=== PATIENT | female | born 1935 | race Caucasian/White ===

== ENCOUNTER 2017-09-05 13:51 | Outpatient (CLI) | payer MEDICARE ==
--- NOTE | 2017-09-05 17:08 | HP ---
DATE OF SERVICE: 09/05/2017 HISTORY OF PRESENT ILLNESS: Ms. Chikis Vanegas is a very pleasant 82-year-old accompanied by two of her daughters who presents to the [facility] for evaluation of an ulceration of the left medial lower leg. The patient states that she underwent venous ablation on the [place] [address] Rosendo neal. She states that at the end of 2016, she underwent a second ablation by Dr. Puente. The patien t's daughter states that the ulceration of the left medial lower leg has been treated with a silver o intment as well as Aquacel AG. The patient's daughter states that 3-4 days ago, a new lesion of the left anterior lower leg appeared. She states that the application of silver ointment to the lesion w orsened the appearance of the lesion. One of the patient's daughter states that the lesion may have developed as a result of shear stress from the application and removal of compression garments. One of the patient's daughter states that the lesion of the left anterior lower leg has been treated with the application of an antibiotic ointment followed by Jaron Douglas, and an Nic bandage. PAST MEDICAL HISTORY: 1. Hepatitis. 2. Hypertension. 3. Coronary artery disease. 4. Atrial fibrillation. 5. Osteoarthritis. 6. Osteoporosis. PAST SURGICAL HISTORY: 1. Left carpal tunnel release. 2. Right oophorectomy. 3. Appendectomy. 4. Cataract surgery of left eye. 5. Left total knee arthroplasty. 6. Left shoulder surgery. 7. Open reduction and internal fixation of left olecranon fracture. MEDICATIONS: 1. Atenolol. 2. Enalapril. 3. Xarelto. 4. Potassium chloride. 5. Lasix. 6. Evista. 7. Glucosamine. 8. Tylenol Arthritis. 9. Zoloft. 10. Sinemet. ALLERGIES: TETRACYCLINE. SOCIAL HISTORY: Negative for tobacco or ETOH use. FAMILY HISTORY: Significant for diabetes mellitus. The patient states that her mother was diagnosed with diabetes mellitus. PHYSICAL EXAMINATION: VITAL SIGNS: Temperature 97.7, pulse 90, respirations 18, blood pressure 108/65. GENERAL: An 82-year-old female sitting on chair in examination room in no acute distress. HEENT: Normocephalic, atraumatic. NECK: No nuchal rigidity. CHEST: Clear to auscultation. CARDIOVASCULAR: Irregular. ABDOMEN: Soft. EXTREMITIES: A fluctuant mass of the left anterior lower leg is present which measures approximately 2.0 x 2.5 cm. Aspiration of the lesion revealed purulent material within the fluctuant mass. A alena ple of the drainage was sent for aerobic and anaerobic cultures. A window was created in the fluctua nt mass to allow for complete drainage of the purulent material contained within the abscess. Erythe ma of the left anterior lower leg is present. No significant edema of the left foot or lower leg is present on exam today. NEUROLOGIC: Grossly nonfocal. ASSESSMENT AND PLAN: 1. Abscess of left anterior lower leg. The abscess was drained in clinic today. The lesion for whi ch the patient was referred to the Wound Center specifically, the ulceration of the left medial lower leg has healed completely. The wound of the left anterior lower leg subsequent to abscess drainage will be treated with dressing changes of Silvercel, 4 x 4s or Telfa, Kerlix, and an Nic bandage on a daily basis after cleansing and irrigation with the assistance of Home Health. The patient has been given a prescription for Bactrim DS #20 one p.o. b.i.d. x10 days. Antibiotic therapy will be modifie d based upon the results of the cultures obtained today. The patient is currently undergoing workup by Dr. Puente for arterial insufficiency. The patient may also undergo another venous ablation. I will see Ms. Vanegas again as needed after evaluation and treatment by Cardiology. The patient will contact the Wound Center should the wound of the left anterior lower leg failed to heal completely. The patient and her daughters understand and are in agreement with the preceding treatment plan. 2. Hepatitis. 3. Hypertension. 4. Coronary artery disease. 5. Atrial fibrillation. 6. Osteoarthritis. 7. Osteoporosis.
== END 2017-09-05 13:52 | disposition home or self-care (01) ==
LOC: WCC 13:51
PROVIDERS: ATTEND Family Medicine
DX: L02.416 Cutaneous abscess of left lower limb (principal); L97.829 Non-pressure chronic ulcer of other part of left lower leg with unspecified severity; K75.9 Inflammatory liver disease, unspecified; I10 Essential (primary) hypertension; I25.10 Atherosclerotic heart disease of native coronary artery without angina pectoris; I48.91 Unspecified atrial fibrillation; M19.90 Unspecified osteoarthritis, unspecified site; M81.0 Age-related osteoporosis without current pathological fracture
CPT/HCPCS: 87070; 87077; 87186; 87205

== ENCOUNTER 2017-09-30 11:37 | Outpatient (CLI) | payer MEDICARE ==
--- NOTE | 2017-09-30 21:12 | PRG ---
DATE OF SERVICE: 09/30/2017 HISTORY: Ms. Chikis Vanegas is a very pleasant 82-year-old accompanied by one of her daughters, james pfeiffer presents to the Wound Center for evaluation of an ulceration of the left anterior lower leg subseq uent to incision and drainage of an abscess of the left anterior lower leg at the time of the patient 's initial presentation to the Wound Center on 09/05/2017. For the ulceration of the left anterior l ower leg, the patient was placed on dressing changes of Silvercel, 4 x 4s or Telfa, Kerlix, and an Ac e bandage on a daily basis after cleansing and irrigation with the assistance of [facility] followin g incision and drainage of the left anterior lower leg abscess. The patient states she has been rece iving these dressing changes as prescribed. The patient's daughter states that she is concerned in r egard to the appearance of the wound, specifically the possibility of an infectious process associate d with the wound. The patient denies any fever or chills. PHYSICAL EXAMINATION: VITAL SIGNS: Temperature 97.6, pulse 91, blood pressure 137/91. EXTREMITIES: An ulceration of the left anterior lower leg is present, which measures approximately 2 .1 x 1.1 cm. The wound is granulating. Necrotic and nonviable tissue present within the wound elio ns was debrided with an excisional full-thickness debridement with the use of a curette. No purulent drainage is associated with the wound. No erythema of the skin surrounding the wound is present. N o maceration of the skin of the periwound is noted. No significant edema of the left foot or lower l eg is present on exam today. ASSESSMENT AND PLAN: 1. Ulceration of left anterior lower leg. Dressing changes of Silvercel, 4 x 4s, Kerlix, and an Nic bandage will be continued on a daily basis after cleansing and irrigation with the assistance of [facility] [employer]. The patient and her daughter have been reassured that no infectious process is associated with the left anterior lower leg ulceration. I will see Ms. Vanegas again in two weeks. 2. Hepatitis. 3. Hypertension. 4. Coronary artery disease. 5. Atrial fibrillation. 6. Osteoarthritis. 7. Osteoporosis.
== END 2017-09-30 11:38 | disposition home or self-care (01) ==
LOC: WCC 11:37
PROVIDERS: ATTEND Family Medicine
DX: L97.229 Non-pressure chronic ulcer of left calf with unspecified severity (principal); I10 Essential (primary) hypertension; I25.10 Atherosclerotic heart disease of native coronary artery without angina pectoris; B19.9 Unspecified viral hepatitis without hepatic coma; M19.90 Unspecified osteoarthritis, unspecified site; M81.0 Age-related osteoporosis without current pathological fracture; I48.91 Unspecified atrial fibrillation
CPT/HCPCS: 11042

== ENCOUNTER 2017-12-04 13:48 | Outpatient (CLI) | payer MEDICARE ==
--- NOTE | 2017-12-04 16:51 | PRG ---
DATE OF SERVICE: 12/04/2017 HISTORY: Ms. Chikis Vanegas is a very pleasant 82-year-old accompanied by one of her daughters wh o presents to the Wound Center for evaluation of an ulceration of the left medial lower leg. For the ulceration the patient is receiving dressing changes of Silvercel, 4 x 4s, Kerlix, and an Nic bandag e with the assistance of Home Health. The patient states that she is to undergo another venous ablat ion by Dr. Puente. The patient has no other complaints today. She denies any fever or chills. PHYSICAL EXAMINATION: VITAL SIGNS: Temperature 97.5, pulse 92, respirations 22, blood pressure 130/68. EXTREMITIES: An ulceration of the left medial lower leg is present which measures approximately 1.0 x 1.0 cm. Granulation tissue is present within the wound margins. No purulent drainage is associate d with the wound. No erythema of the skin surrounding the wound is present. No maceration of the sk in of the periwound is noted. No significant edema of the left foot or lower leg is present on exam today. ASSESSMENT AND PLAN: 1. Varicose veins with ulcer. Dressing changes of Silvercel, 4 x 4s, Kerlix, and an Nic bandage keisha l be continued on a daily basis after cleansing and irrigation with the assistance of Home Health. T he patient has been told that she may use Elta as a moisturizing agent. She has also been given a pr escription for Synalar ointment 0.025% to be applied up to b.i.d. for stasis dermatitis. I will see Ms. Vanegas again as needed after she undergoes venous ablation by Dr. Puente. 2. Hepatitis. 3. Hypertension. 4. Coronary artery disease. 5. Atrial fibrillation. 6. Osteoarthritis. 7. Osteoporosis.
== END 2017-12-04 13:49 | disposition home or self-care (01) ==
LOC: WCC 13:48
PROVIDERS: ATTEND Family Medicine
DX: I83.028 Varicose veins of left lower extremity with ulcer other part of lower leg (principal); I10 Essential (primary) hypertension; I25.10 Atherosclerotic heart disease of native coronary artery without angina pectoris; M81.0 Age-related osteoporosis without current pathological fracture; M19.90 Unspecified osteoarthritis, unspecified site; I48.91 Unspecified atrial fibrillation; K75.9 Inflammatory liver disease, unspecified
CPT/HCPCS: 97602

== ENCOUNTER 2018-02-05 11:08 | Outpatient (CLI) | payer MEDICARE ==
--- NOTE | 2018-02-05 12:33 | PRG ---
DATE OF SERVICE: 02/05/2018 HISTORY: Ms. Chikis Vanegas is a very pleasant 82-year-old accompanied by one of her daughters, wh o presents to the Wound Center for evaluation of an ulceration of the left medial lower leg. For the ulceration, the patient is receiving dressing changes with the assistance of Home Health. The patie nt has previously undergone venous ablation on the left by Dr. Puente. The patient has no other c omplaints today. She denies any fever or chills. PHYSICAL EXAMINATION: VITAL SIGNS: Temperature 98.7, pulse 65, respirations 18, and blood pressure 127/57. EXTREMITIES: An ulceration of the left medial lower leg is present, which measures approximately 0.6 x 0.8 cm. Granulation tissue is present within the wound margins. Serous drainage is associated wi th the wound. No purulent drainage is associated with the wound. No cellulitis of the left lower ex tremity is appreciated. No maceration of the skin of the periwound is noted. A posterior tibial pul se is palpable on the left. No significant edema of the left foot or lower leg is appreciated on exa m today. ASSESSMENT AND PLAN: 1. Varicose veins with ulcer. Dressing changes of Xeroform gauze and Mepilex border will be initiat ed today. These dressing changes are to be performed 3 times per week after cleansing and irrigation with the assistance of Home Health. The patient has also been given another prescription for Synala r ointment 0.025% to be applied up to b.i.d. for stasis dermatitis. The patient states she will cont act the Wound Center for her next appointment. 2. Hepatitis. 3. Hypertension. 4. Coronary artery disease. 5. Atrial fibrillation. 6. Osteoarthritis. 7. Osteoporosis.
[2018-02-05] MEDS ORDERED: Sodium Chloride 0.9% 15 ML NEB ONE (14:30)
== END 2018-02-05 11:09 | disposition home or self-care (01) ==
LOC: WCC 11:08
PROVIDERS: ATTEND Family Medicine
DX: I83.028 Varicose veins of left lower extremity with ulcer other part of lower leg (principal); I10 Essential (primary) hypertension; I25.10 Atherosclerotic heart disease of native coronary artery without angina pectoris; I48.91 Unspecified atrial fibrillation; M19.90 Unspecified osteoarthritis, unspecified site; M81.0 Age-related osteoporosis without current pathological fracture; K75.9 Inflammatory liver disease, unspecified
CPT/HCPCS: A4218

== ENCOUNTER 2018-03-13 09:53 | Outpatient (CLI) | payer MEDICARE ==
--- NOTE | 2018-03-13 10:57 | PRG ---
DATE OF SERVICE: 03/13/2018 HISTORY: Ms. Chikis Vanegas is a very pleasant 83-year-old accompanied by one of her daughters who p resents to the Wound Center for evaluation of an ulceration of the left lateral heel. For the ulcera tion, the patient is presently receiving dressing changes with the assistance of Home Health. The pa tient has previously undergone venous ablation on the left by Dr. Puente. Ms. Vanegas has no other complaints today. She denies any fever or chills. PHYSICAL EXAMINATION: VITAL SIGNS: Temperature 97.8, pulse 71, respirations 20, blood pressure 128/83. EXTREMITIES: An ulceration of the left lateral heel is present which measures approximately 0.4 x 0. 4 cm. Granulation tissue is present within the wound margins. Serous drainage is associated with wo und. No purulent drainage is associated with the wound. No cellulitis of the left lower extremity i s appreciated. No maceration of the skin of the periwound is noted. A dorsalis pedis pulse or poste rior tibial pulse is not palpable on the left on today's exam. No significant edema of the left foot or lower leg is appreciated on today's exam. ASSESSMENT AND PLAN: 1. Varicose veins with ulcer. Dressing changes of Xeroform gauze, Webril, and 3M Coban 2-layer comp ression system will be initiated today. The 3M Coban 2-layer compression system will be applied with out tension. Orders will be transmitted to Home Health for dressing changes of Xeroform gauze, Webri l, and 3M Coban 2 layer compression system without tension 3 times per week after cleansing and irrig ation. The patient will contact the Wound Center for her next appointment. 2. Hepatitis. 3. Hypertension. 4. Coronary artery disease. 5. Atrial fibrillation. 6. Osteoarthritis. 7. Osteoporosis.
== END 2018-03-13 09:54 | disposition home or self-care (01) ==
LOC: WCC 09:53
PROVIDERS: ATTEND Family Medicine
DX: I83.024 Varicose veins of left lower extremity with ulcer of heel and midfoot (principal); L97.429 Non-pressure chronic ulcer of left heel and midfoot with unspecified severity; I10 Essential (primary) hypertension; I25.10 Atherosclerotic heart disease of native coronary artery without angina pectoris; I48.91 Unspecified atrial fibrillation; M19.90 Unspecified osteoarthritis, unspecified site; M81.0 Age-related osteoporosis without current pathological fracture; K75.9 Inflammatory liver disease, unspecified
CPT/HCPCS: 29581

== ENCOUNTER 2018-06-19 08:38 | Outpatient (CLI) | payer MEDICARE ==
--- NOTE | 2018-06-19 16:02 | NM ---
NUCLEAR MEDICINE BRAIN IMAGING: Date; 06/19/18 HISTORY: Unspecified abnormal involuntary movements. TECHNIQUE: A DaTscan with axial tomographic images of the brain obtained 3 hours following the intravenous admin istration of 4.5 mCi Iodine-123 Ioflupane. 113 mg of potassium iodide were administered orally 1 hour prior to the injection. FINDINGS: There is loss of symmetric uptake in the striata bilaterally with asymmetrically decreased uptake in the left compared to the right. IMPRESSION: Parkinsonian syndrome. POS: Emma
== END 2018-06-19 08:39 | disposition home or self-care (01) ==
LOC: NM 08:38
PROVIDERS: ATTEND Psychiatry & Neurology Neurology
DX: G24.8 Other dystonia (principal); R25.9 Unspecified abnormal involuntary movements; G20 Parkinson's disease
CPT/HCPCS: 78607; A9584

== ENCOUNTER 2018-08-06 13:14 | Outpatient (CLI) | payer MEDICARE ==
[~2018-08-06 13:14] MED LIST: Sodium Chloride 0.9% 15 ML NEB ONE
--- NOTE | 2018-08-06 14:14 | PRG ---
DATE OF SERVICE: 08/06/2018 HISTORY: Ms. Chikis Vanegas is a very pleasant 83-year-old, accompanied by one of her daughters, who presents to the Wound Center for evaluation of an ulceration of the right medial lower leg in the region of the malleolus. The patient has previously undergone venous ablation on the left by Dr. Puente. The patient and her daughter state that Ms. Vanegas is to undergo venous ablation on the right in the near future. The patient has no other complaints today. She denies any fever or chills. PHYSICAL EXAMINATION: VITAL SIGNS: Temperature 97.5, pulse 108, and blood pressure 141/71. EXTREMITIES: An ulceration of the right lower leg in the region of the medial malleolus is present, which measures approximately 1.3 x 1.4 cm. Granulation tissue is visible within the wound margins. No purulent drainage is associated with the wound. No cellulitis of the right lower extremity is appreciated. No maceration of the skin of the periwound is noted. No significant edema of the right foot or lower leg is appreciated on exam today. ASSESSMENT AND PLAN: 1. Varicose veins with ulcer. Dressing changes of Xeroform gauze, Kerlix, and an Nic bandage will be initiated today. These dressing changes are to be performed 3 times per week after cleansing and irrigation with the assistance of Home Health. As stated above, the patient is to undergo venous ablation on the right by Dr. Puente in the near future. The patient states she will contact the Wound Center in order to schedule her next appointment. 2. Hepatitis. 3. Hypertension. 4. Coronary artery disease. 5. Atrial fibrillation. 6. Osteoarthritis. 7. Osteoporosis. Job ID: [id number]
== END 2018-08-06 13:15 | disposition home or self-care (01) ==
LOC: WCC 13:14
PROVIDERS: ATTEND Family Medicine
DX: I83.018 Varicose veins of right lower extremity with ulcer other part of lower leg (principal); I10 Essential (primary) hypertension; I25.10 Atherosclerotic heart disease of native coronary artery without angina pectoris; I48.91 Unspecified atrial fibrillation; M19.90 Unspecified osteoarthritis, unspecified site; M81.0 Age-related osteoporosis without current pathological fracture; K75.9 Inflammatory liver disease, unspecified
CPT/HCPCS: 97602; A4218

== ENCOUNTER 2018-10-09 13:44 | Outpatient (CLI) | payer MEDICARE ==
[~2018-10-09 13:44] MED LIST changes: +Lidocaine 2% 11 ML SYR ONE
--- NOTE | 2018-10-09 15:41 | PRG ---
DATE OF SERVICE: 10/09/2018 SUBJECTIVE: Ms. Chikis Vanegas is a very pleasant 83-year-old, accompanied by one of her daughters, who presents to the Wound Center for evaluation of an ulceration of the right medial lower leg in the region of the malleolus. The patient has previously undergone venous ablation on the left by Dr. Puente. The patient and her daughter state that Ms. Vanegas is scheduled to undergo venous ablation on the right in October of this year. Today, Ms. Vanegas complains of significant green drainage from her right medial lower leg ulceration. The patient continues to receive assistance with dressing changes by Home Health. Presently, the patient is receiving dressing changes of Medihoney. OBJECTIVE: VITAL SIGNS: Temperature 97.5, pulse 82, respirations 17, blood pressure 129/87. EXTREMITIES: An ulceration of the right lower leg in the region of the medial malleolus is present, which measures approximately 3.5 x 4.0 cm. Granulation tissue is visible within the wound margins. No purulent drainage is associated with the wound. No cellulitis of the right lower extremity is appreciated. No maceration of the skin of the periwound is noted. No significant edema of the right foot or lower leg is appreciated on exam today. ASSESSMENT AND PLAN: 1. Varicose veins with ulcer. Dressing changes of Medihoney will be continued 3 times per week after cleansing and irrigation with the assistance of Home Health. Medihoney foam, Kerlix, and an Nic bandage were applied to the ulceration today. As stated above, the patient is scheduled to undergo venous ablation on the right by Dr. Puente in October of this year in view of the copious green drainage associated with the right medial lower leg ulceration. The patient has been given a prescription for ciprofloxacin 500 mg #20 one p.o. b.i.d. x10 days. 2. Hepatitis. 3. Hypertension. 4. Coronary artery disease. 5. Atrial fibrillation. 6. Osteoarthritis. 7. Osteoporosis. Job ID: [id number]
== END 2018-10-09 13:45 | disposition home or self-care (01) ==
LOC: WCC 13:44
PROVIDERS: ATTEND Family Medicine
DX: I83.018 Varicose veins of right lower extremity with ulcer other part of lower leg (principal); L97.919 Non-pressure chronic ulcer of unspecified part of right lower leg with unspecified severity; K75.9 Inflammatory liver disease, unspecified; I10 Essential (primary) hypertension; I25.10 Atherosclerotic heart disease of native coronary artery without angina pectoris; I48.91 Unspecified atrial fibrillation; M19.90 Unspecified osteoarthritis, unspecified site; M81.0 Age-related osteoporosis without current pathological fracture
CPT/HCPCS: 97602; A4218

== ENCOUNTER 2018-11-05 11:29 | Outpatient (CLI) | payer MEDICARE ==
--- NOTE | 2018-11-05 11:41 | PRG ---
DATE OF SERVICE: 11/05/2018 HISTORY: Ms. Chikis Vanegas is a very pleasant 83-year-old, accompanied by one of her daughters, who presents to the wound center for evaluation of an ulceration of the right medial lower leg in the region of the malleolus. The patient recently underwent venous ablation on the right by Dr. Puente. The patient is utilizing compression as per Dr. Puente. The patient's daughter states that Ms. Vanegas has most recently been receiving dressing changes of Telfa, followed by an ABD and Kerlix in conjunction with compression. She states that Medihoney was discontinued because of significant maceration of the skin of the periwound. The patient's daughter states that the wound has improved in its appearance since Medihoney was discontinued. PHYSICAL EXAMINATION: VITAL SIGNS: Temperature 97.6, pulse 90, respirations 20, and blood pressure 120/90. EXTREMITIES: An ulceration of the right lower leg in the region of the medial malleolus is present, which measures approximately 2.8 x 3.3 cm. The dimensions of the wound at the time of the patient's last visit were approximately 3.5 x 4.0 cm. Granulation tissue is visible within the wound margins. No purulent drainage is associated with the wound. No cellulitis of the right lower extremity is appreciated. No maceration of the skin of the periwound is noted. No significant edema of the right foot or lower leg is appreciated on exam today. ASSESSMENT AND PLAN: 1. Varicose veins with ulcer. Dressing changes of Telfa, followed by an ABD and Kerlix will be continued. The patient is to continue to utilize compression as per Dr. Puente in conjunction with the preceding dressing changes. The patient's daughter states that Ms. Vanegas will contact the clinic in order to schedule her next followup appointment. 2. Hepatitis. 3. Hypertension. 4. Coronary artery disease. 5. Atrial fibrillation. 6. Osteoarthritis. 7. Osteoporosis. Job ID: [id number]
== END 2018-11-05 11:30 | disposition home or self-care (01) ==
LOC: WCC 11:29
PROVIDERS: ATTEND Family Medicine
DX: I83.018 Varicose veins of right lower extremity with ulcer other part of lower leg (principal); I10 Essential (primary) hypertension; I25.10 Atherosclerotic heart disease of native coronary artery without angina pectoris; I48.91 Unspecified atrial fibrillation; K75.9 Inflammatory liver disease, unspecified; M81.0 Age-related osteoporosis without current pathological fracture; M19.90 Unspecified osteoarthritis, unspecified site
CPT/HCPCS: 97602; A4218

== ENCOUNTER 2019-06-10 16:21 | Inpatient (IN) | payer MEDICARE ==
[~2019-06-10 16:21] MED LIST changes: +Dexamethasone 20 MG/5 ML VIAL ONE; +Glycopyrrolate 0.2 MG/ML 5 ML SYRINGE ONE; +Iopamidol 370 76% 100 ML VIAL ONE; -Lidocaine 2% 11 ML SYR ONE; +Ondansetron PF 4 MG/2 ML Vial ONE; +PROPOFOL 200 MG/20 ML VIAL ONE; +Rocuronium Bromide 10 MG/ML (10ML VIAL) ONE; -Sodium Chloride 0.9% 15 ML NEB ONE; +diphenhydrAMINE 50 MG/ML VIAL ONE
[2019-06-10] MEDS ORDERED: Heparin (Artline) 1,500 ML ONE (16:26)
[2019-06-10] MEDS ORDERED: Heparin 10,000 UNITS/1 ML VIAL ONE ×2 (16:27→18:31)
[2019-06-10] MEDS ORDERED: Fentanyl 100 MCG/2 ML VIAL ONE (16:48)
[2019-06-10] MEDS ORDERED: Midazolam HCl 2 mg/2 ml Vial ONE (16:48)
--- NOTE | 2019-06-10 18:03 | PRG ---
DATE OF SERVICE: 06/10/2019 Ms. Vanegas is an 84-year-old female, who was an inpatient at the [place] location, where she was about to undergo a procedure, where she was noted to have abrupt facial droop, aphasia, and altered level of consciousness. She underwent a stroke workup at that time, which was a CT scan, which showed no evidence for hemorrhage. A CT angiogram performed thereafter revealed the presence of a left distal M1 clot in the middle cerebral artery on the left side. Shortly thereafter, I was contacted by one of the hospitalists and we made arrangements to transfer to [facility] for further evaluation and treatment. I just met with the patient's daughters and reviewed again with them her diagnosis, the imaging and the planned procedure moving forward, which is a cerebral angiography and potentially mechanical thrombectomy. I did review with them the risks, benefits, and alternatives, and they have provided their informed consent. Job ID: [id number]
[2019-06-10] MEDS ORDERED: niCARdipine 25 MG in Sodium Chloride 0.9% 250 ML 240 ML IVPB PRN (19:27)
[2019-06-10] MEDS ORDERED: Labetalol HCl 100 MG/20 ML VIAL SLOW IVP PRN (19:27)
[2019-06-10] MEDS ORDERED: Labetalol HCl 100 MG/20 ML VIAL ONE (19:57)
--- NOTE | 2019-06-10 20:04 | PDOC.HHP ---
Hospitalist HPI - History of Present Illness CVA History of Present Illness: HOSPITALIST CONSULTATION NOTE CONSULTING PROVIDER: Dr Bronson Paris REASON FOR CONSULTATION: HTN, CAD, atrial fibrillation, comanagement CHIEF COMPLAINT: Facial droop, aphasia HPI Patient is an 84 year old female with PMH hepatitis, HTN, CAD, atrial fibrillation, osteoarthritis, osteoporosis who was transferred here after acute stroke in M1 segment of MCA this AM. Patient already admitted at [facility] since 06/08 and about to go for procedure today when she developed abrupt facial droop, aphasia, change in LOC, CT scan negative for hemorrhage but CT angiography revealed M1 clot prompting the transfer. Patient was taken to operating room by Dr Paris who attempted cerebral angiography/ mechanical thrombectomy which was not successful. Patient returned to [facility] for further care. IM consulted for HTN, afib, comanagement. Records reviewed, patient was admitted to [facility] on 06/08/19 for infected R pretibial wound. She has been seeing wound care clinic and orthopedics had been consulted and was planning to do I&D this admission. Patient was on vancomycin and cefepime. MRI was performed there, notes state that there was no radiologic osteomyelitis found on that study. Dr Vaca was consulted there as well as Dr Metz of orthopedics. Neurologist: Dr Vanegas Consulting Analyst: Dr Huff Hospitalist ROS - Review of Systems ROS unobtainable: due to mental status Hospitalist History - Past Medical History Other Medical History: hepatitis HTN CAD atrial fibrillation osteoarthritis osteoporosis - Past Surgical History Other Surgical History: L carpal tunnel release R oophorectomy appendectomy cataract surgery L eye L TKA L shoulder surgery ORIF L olecranon - Family History Family History: reports: no pertinent history - Social History Smoking Status: Never smoker Alcohol: reports: None - Exam General Appearance: ill appearing General - other findings: shivering, opens eyes to command, otherwise not interactive, altered mental Eye: anicteric sclera Eye - other findings: opens L eye pupil reactive ENT: normocephalic atraumatic, moist mucosa ENT - other findings: facial droop Neck: supple, no JVD Heart: RRR, no murmur, no gallops, no rubs Respiratory: CTAB, no wheezes, no rales, no ronchi Gastrointestinal: soft, non-tender, non-distended, normal bowel sounds Extremities: no cyanosis, no clubbing, no edema Skin - other findings: R ankle tunneling wound with surrounding erythema and edema Neurological - other findings: AMS, R chronic contracture, R facial droop, not responding to commands Musculoskeletal: generalized weakness, diffuse muscle atrophy Psychiatric - other findings: unable to evaluate Hospitalist Results - Labs Additional comment: 100+ pages outside recs reviewed Hospitalist H&P A/P - Plan Plan: Patient is an 84 year old female with PMH hepatitis, HTN, CAD, atrial fibrillation, osteoarthritis, osteoporosiswho was transferred here after acute stroke in M1 segment of MCA # acute CVA - status post attempted angiography/mechanical thrombectomy 2019 - stroke order set was ordered by neurosurgery, including rehab evaluation - hold xarelto for the moment with risk of hemorrhagic conversion, patient started back on ASA by NSG - will get echo - consult Dr Huff, Madhuri, Nola Mcdermott - Dr Chavez is normal neurologist with [facility] [employer], family requests discussion between neurology teams if able - unfortunately must hold PO meds due to AMS and aspiration risk, speech to eval , resume meds when able, has PICC so TPN consult placed, keep on IVF, monitor for recovery # acute encephalopathy - patient with significant neurologic impairment currently, though some of this may be encephalopathy due to infection or residual anesthesia from procedure, turns head to verbal commands but closes eyes and is shivering and otherwise too encephalopathic to cooperate with exam # infected R ankle wound with cellulitis - continue vancomycin and cefepime, consult orthopedics for debridement evaluation, order new blood and wound cultures, will consult wound care service for pretibial wound management # abnormal doppler lower extremity - can consider for vascular intervention, Dr Huff consutled # history of hepatitis # HTN - recently started on lisinopril and spironolactone # CAD # atrial fibrillation - followed by Dr Huff, on xarelto chronically # osteoarthritis # osteoporosis # neurologic disorder Parkinsons spectrum - has gotten botox for this in past Code: continue previous DNR status Disposition based on clinical recovery
[2019-06-10] MEDS ORDERED: Promethazine HCl 12.5 MG in Sodium Chloride 0.9% 50 ML IVPB PRN (20:36)
[2019-06-10] MEDS ORDERED: Ondansetron PF 4 MG/2 ML Vial IVP PRN (20:36)
[2019-06-10] MEDS ORDERED: Vancomycin HCl 1 GM in Sodium Chloride 0.9% 250 ML 300 ML IVPB SCH (20:45)
[2019-06-10] MEDS: Dextrose 5 %-0.45 % NaCl 1,000 ML IV SCH (21:24)
[2019-06-10 21:29] LABS: #Eosinphils 0.1 thou/uL (0.0-0.7); #Lymphocytes 0.5 thou/uL (1.20-3.40); #Monocytes 0.2 thou/uL (0.11-0.59); #Neutrophils 16.5 thou/uL (1.40-6.50); %Eosinophils 0.4 % (0.0-10.0); %Lymphocytes 2.8 % (21.0-51.0); %Monocytes 1.2 % (0.0-10.0); %Neutrophils 95.6 % (42.0-75.0); Hemoglobin 13.1 g/dL (12.0-16.0); Mean Corpuscular Hemoglobin 31.6 pg (27.0-31.0); Mean Corpuscular Volume 98.8 fL (78.0-98.0); Mean Platelet Volume 7.4 fL (7.4-10.4); Platelet Count 454 thou/uL (130-400); RBC Distribution Width 13.3 % (11.5-14.5); Red Blood Cell (RBC) Count 4.13 mill/uL (4.20-5.40); White Blood Cell (WBC) Count 17.2 thou/uL (4.8-10.8)
[2019-06-10 21:53] LABS: Anion Gap 16 mmol/L (10-20); BUN (Urea Nitrogen) 12 mg/dL (9.8-20.1); Calc. Creatinine Clearance 0 mL/min (70-130); Calcium 7.7 mg/dL (7.8-10.44); Carbon Dioxide 20 mmol/L (23-31); Chloride 107 mmol/L (98-107); Estimated GFR-MDRD 76; Glucose 155 mg/dL (83-110); Potassium 5.5 mmol/L (3.5-5.1); Sodium 137 mmol/L (136-145)
[2019-06-10 22:46] VITALS: BMI 17.6
[2019-06-10] MEDS ORDERED: Vancomycin HCl 1 GM in Premix Bag 1 BAG IVPB SCH (23:59)
[2019-06-11 03:52] LABS: #Lymphocytes 0.4 thou/uL (1.20-3.40); #Monocytes 0.2 thou/uL (0.11-0.59); #Neutrophils 11.3 thou/uL (1.40-6.50); %Eosinophils 0.3 % (0.0-10.0); %Monocytes 1.5 % (0.0-10.0); %Neutrophils 95.1 % (42.0-75.0); Hemoglobin 12.1 g/dL (12.0-16.0); Mean Corpuscular HGB CONC 30.8 g/dL (32.0-36.0); Mean Corpuscular Hemoglobin 30.2 pg (27.0-31.0); Mean Corpuscular Volume 97.9 fL (78.0-98.0); Mean Platelet Volume 7.6 fL (7.4-10.4); Platelet Count 442 thou/uL (130-400); RBC Distribution Width 13.4 % (11.5-14.5); White Blood Cell (WBC) Count 11.9 thou/uL (4.8-10.8)
[2019-06-11 04:19] LABS: Anion Gap 16 mmol/L (10-20); BUN (Urea Nitrogen) 13 mg/dL (9.8-20.1); Calc. Creatinine Clearance 48 mL/min (70-130); Calcium 7.9 mg/dL (7.8-10.44); Carbon Dioxide 18 mmol/L (23-31); Cardiac Risk 3.5 (Less than 4.5); Chloride 106 mmol/L (98-107); Cholesterol 138 mg/dl (< 200 Desired); Estimated GFR-MDRD 75; Glucose 232 mg/dL (83-110); HDL Cholesterol 39 mg/dL (>60 Neg Risk); LDL Cholesterol, Calculated 85 mg/dL; Potassium 4.8 mmol/L (3.5-5.1); Sodium 135 mmol/L (136-145); Triglycerides 70 mg/dL (Less than 150)
--- NOTE | 2019-06-11 08:24 | CT ---
PRELIMINARY REPORT/[facility]/EMERGENCY AFTER HOURS PROCEDURE: This report was discussed with Guadalupe Knutson by Aster Silver on Jun 11, 2019 05:07:00 GRINDER OPERATOR EXTERNAL TOOL. Addendum electronically signed by Aster Silver on June 11, 2019 5:22:25 AM GRINDER OPERATOR EXTERNAL TOOL Receipt of this report by the clinical staff was confirmed with Tessie Barker by Cherrie Naik on Jun 11, 2019 05:07:00 GRINDER OPERATOR EXTERNAL TOOL. Addendum electronically signed by Leonela Naik on June 11, 2019 5:08:13 AM GRINDER OPERATOR EXTERNAL TOOL Exam: Unenhanced CT brain. History: AMS; CONFUSION; CVA . Comparison: None. Findings: There is no intracranial hemorrhage. Large acute left MCA distribution infarct is present. Patient demonstrates Baseline of cerebral atrophy and small vessel ischemic disease. Ventricles a re normal size. Impression: Acute large left MCA distribution infarct. ELECTRONICALLY SIGNED BY: Shiloh Meadows MD Jun 11, 2019 4:56:55 AM GRINDER OPERATOR EXTERNAL TOOL This report is intended for review by the ordering physician only, in accordance of law. If you recei ve this report in error, please call [facility] at [phone]. FINAL REPORT BRAIN CT WITHOUT IV CONTRAST EMERGENCY AFTER HOURS STUDY TIME: 3:28 AM. DATE: 06/11/2019. Large acute middle cerebral artery distribution infarct involving courses of the left frontal, tempor al, and parietal lobes with some diffuse edema and 0.2 cm of midline shift to the right. No acute he morrhage. This report is in agreement with the preliminary report. POS: OFF
--- NOTE | 2019-06-11 08:51 | CON ---
DATE OF CONSULTATION: 06/11/2019 REASON FOR CONSULTATION: The patient is in the CCU. HISTORY OF PRESENT ILLNESS: The patient is an 84-year-old, who was brought in yesterday with a stroke. Apparently, she was at the [facility] yesterday when she developed right facial droop, aphasia, and altered consciousness. She was found to have a clot in the middle cerebral artery on the left side. She was taken for a ALONDRA procedure, but the clot could not be retrieved. She has since had gross deterioration in her mental status overnight. She is not arousable for me this morning. PAST MEDICAL HISTORY: 1. Hepatitis. 2. Hypertension. 3. Chronic atrial fibrillation. 4. Coronary artery disease. 5. Osteoporosis. PAST SURGICAL HISTORY: 1. Left carpal tunnel release. 2. Right oophorectomy. 3. Appendectomy. 4. Cataract surgery. 5. Left total knee. 6. Left shoulder. 7. ORIF of left olecranon. SOCIAL HISTORY: Never smoker. Does not consume alcohol. FAMILY HISTORY: Unremarkable. REVIEW OF SYSTEMS: Cannot be obtained because of altered mental status. MEDICATIONS: Prior to admission: 1. Melatonin. 2. Tylenol. 3. Xarelto. 4. Potassium chloride. 5. Glucosamine. 6. Benadryl. 7. Aldactone. 8. Protonix. 9. Furosemide. 10. Evista. 11. Carbidopa/levodopa. 12. Atenolol. PHYSICAL EXAMINATION: VITAL SIGNS: Heart rate 96, O2 saturation 96%, respiratory rate 23, blood pressure 154/87. GENERAL: She is obtunded, cannot be aroused. HEENT: Pupils are 4 mm and reactive. Sclerae are anicteric. Oropharynx is dry. NECK: No JVD. LUNGS: Coarse breath sounds. CARDIAC: S1 and S2. Irregularly irregular. ABDOMEN: Soft. EXTREMITIES: She has stasis changes over her ankles bilaterally. LABORATORY DATA: White blood cell count 11.9, hematocrit 39.2, platelet count 442. Sodium 135, potassium 4.8, chloride 106, CO2 of 18, BUN 13, creatinine 0.7, glucose 232. ASSESSMENT: 1. Stroke with severe debilitation. 2. Other medical problems listed above. PLAN: The patient has been made DNR by family. There looks to be nothing to do other than palliate her symptoms. No further Pulmonary recommendations other than she needs to be transferred out to the floor. Job ID: [id number]
[2019-06-11] MEDS ORDERED: FLU VACC TS2019-20(65YR UP)/PF 180 MCG/0.5 ML SYRINGE IM ONE (09:00)
[2019-06-11] MEDS ORDERED: Prevnar 13-Val Conj/PF 0.5 ML SYRINGE IM ONE (09:00)
[2019-06-11] MEDS ORDERED: Atenolol 25 MG TAB PO SCH (09:15)
[2019-06-11] MEDS: Aspirin 325 mg Enteric Coated Tablet PO SCH (10:45)
[2019-06-11] MEDS: Acetaminophen ER (8hr) 650 MG TAB PO SCH (10:45)
[2019-06-11] MEDS: Carbidopa/Levodopa CR 50-200 mg Tablet PO SCH ×3 (10:45→20:35)
[2019-06-11] MEDS: Aspirin 300 MG Suppository PR SCH (14:33)
[2019-06-11] MEDS: Dextrose 5 %-0.45 % NaCl 1,000 ML IV SCH ×2 (14:38→23:21)
--- NOTE | 2019-06-11 16:01 | CCL ---
DATE OF SERVICE: 06/10/19 SURGEON: Bronson Paris M.D. ELECTRICAL ESTIMATOR: None. INDICATION: CVA. DIAGNOSIS: Left MCA occlusion. PROCEDURE: Mechanical thrombectomy. ANESTHESIA: General. TECHNIQUE: The patient is brought into the [facility] and placed under general anesthesia. Both groins were preppe d and draped in the usual sterile fashion. 1% lidocaine was used to inject the right groin. A 5 Frenc h micropuncture set was used to gain access to the right femoral artery. Using a Seldinger technique, it was up sized to an 8 Moroccan sheath. An 8 Moroccan concentric guide catheter was passed over a long diagnostic Crawford catheter which was passed over a Bentzen guide wire where the left internal chapman tid artery was selectively catheterized. We did have to use a Cherelle catheter to get initial entry in to the left internal carotid artery. An AP and lateral angiogram was then performed which showed and confirmed complete occlusion of the left middle cerebral artery. The patient's tortuosity intracrania lly made it very difficult to pass our micro catheters. I was able to get the mechanical thrombectomy device passed twice beyond the clot and retrieved without any congregational of flow. Went through [facility] guide wires and micro catheters in attempt to pass a third time but was unsuccessful. IMPRESSION: The patient underwent angiography and two passes of retrieval device for purposes of mechanical throm bectomy. Her intracranial tortuosity made navigation through her vasculature difficult and I was able to get a third pass completed. There was no congregational of flow.
--- NOTE | 2019-06-11 17:53 | CON ---
DATE OF CONSULTATION: 06/11/2019 CONSULTING PHYSICIAN: Hospitalist Service. IMPRESSION: 1. Complete left middle cerebral artery infarct, likely secondary to primary thrombus. 2. Atrial fibrillation. 3. Recent wound issues, that were undergoing treatment with antibiotics in anticipation of surgery. 4. Prior contracture of the right hand. PLAN: 1. CT scan of the brain tomorrow to assess the degree of cerebral edema. 2. Speech Therapy evaluation once the patient regains consciousness. 3. Determination of long-term issues such as feeding tube placement and other problems after the family makes decisions in this regard. HISTORY OF PRESENT ILLNESS: Ms. Vanegas is an 84-year-old woman, who came in to the hospital preoperatively to have a surgery. She was taken off her Xarelto 2 days ago. She developed an acute change of mental status with expressive aphasia. She had an urgent CTA done, which showed an M1 segment occlusion. Dr. Paris attempted to do the ALONDRA procedure, but was unsuccessful. Followup CT scan of the brain showed a large area of infarction involving the left middle cerebral artery territory. She has been very lethargic since then. She has failed to awaken and be responsive to 2 of her daughters and nurses. I spoke with one of them extensively as to potential outcomes. PAST MEDICAL HISTORY: Atrial fibrillation, contracture, and wound care issues. ALLERGIES: NONE REPORTED. SOCIAL HISTORY: No tobacco use. FAMILY HISTORY: Noncontributory. REVIEW OF SYSTEMS: Not obtainable secondary to her recurrent mental state. PHYSICAL EXAMINATION: GENERAL: She is a somewhat frail-appearing elderly lady, lying in bed, in no acute distress. VITAL SIGNS: Vital signs have been stable. She is afebrile. HEENT: Pupils are equal. Conjunctivae are clear. Eyes are deviated to the left. NECK: No lymphadenopathy. EXTREMITIES: No cyanosis or edema. NEUROLOGIC: She is deeply lethargic. She would not open her eyes to stimulation. She is making no verbal responses. There is flattening of the right nasolabial fold. The right arm appears contractured at the elbow as well as at the wrist. She has spontaneous movements in the right leg to stimulation as well as on the left. No other abnormal movements were seen. IMAGING STUDIES: EKG shows atrial fibrillation. LABORATORY DATA: Laboratory studies were reviewed. SUMMARY: This is an unfortunate elderly lady, who suffered a massive stroke. Prognosis for functional recovery is quite small. There is a potential for secondary herniation related to cerebral edema. Family is indecisive at this point as to what the long-term care needs they would like to pursue. At this point, she is DNR. Dr. Sanchez will be covering for me in my absence. Job ID: [id number]
[2019-06-11] MEDS: Pantoprazole 40 MG VIAL IVP SCH (20:41)
[2019-06-11] MEDS ORDERED: Acetaminophen 650 MG Suppository PR PRN (20:56)
--- NOTE | 2019-06-11 22:05 | PDOC.HOSPP ---
- Subjective Encounter Date: 06/11/19 Encounter Time: 19:00 non-verbal Subjective: Patient seen and examined for Acute CVA. Events noted - Objective Vital Signs & Weight: Vital Signs (12 hours) Temp Pulse Resp BP Pulse Ox 06/11/19 20:40 99.3 F 93 18 155/79 H 100 06/11/19 18:00 98 06/11/19 14:00 100.0 F H Weight Admit Weight 119 lb Weight 119 lb 11.376 oz Most Recent Monitor Data Heart Rate from ECG 87 NIBP 142/93 NIBP BP-Mean 109 Respiration from ECG 23 SpO2 98 I&O: 06/10/19 06/11/19 06/12/19 06:59 06:59 06:59 Intake Total 734 Output Total 715 490 Balance 19 -490 Result Diagrams: 06/11/19 03:00 06/11/19 03:30 Additional Labs: Accuchecks 06/11/19 06/11/19 06/11/19 13:30 04:03 00:19 POC Glucose 153 H 196 H 188 H Radiology Reviewed by me: Yes (CT brain - reviewed) EKG Reviewed by me: Yes (Tele Afib) Hospitalist ROS - Review of Systems ROS unobtainable: due to mental status - Medication Medications: Active Medications Generic Name Dose Route Start Last Admin Trade Name Aletha PRN Reason Stop Dose Admin Acetaminophen 650 mg 06/11/19 09:00 06/11/19 10:45 Tylenol Er (8hr Arthritis Pain) PO Not Given DAILY [facility]IGHT Aspirin 325 mg 06/11/19 09:00 06/11/19 10:45 Ecotrin PO Not Given DAILY DWIGHT Aspirin 300 mg 06/11/19 09:00 06/11/19 14:33 Aspirin FL 300 mg DAILY DWIGHT Administration Carbidopa/Levodopa 1.5 tab 06/11/19 09:00 06/11/19 20:35 Sinemet Cr 50/200 PO Not Given TID DWIGHT Dextrose/Sodium Chloride 1,000 mls @ 75 mls/hr 06/10/19 21:15 06/11/19 14:38 D5 1/2 Ns IV 1,000 mls .[id number] DWIGHT Administration Vancomycin HCl 1 gm/ Device 200 mls @ 200 mls/hr 06/10/19 23:59 06/11/19 01: 31 IVPB 200 mls 2359 DWIGHT Administration Pantoprazole Sodium 40 mg 06/11/19 21:00 06/11/19 20:41 Protonix IVP 40 mg HS DWIGHT Administration - Exam General Appearance: NAD Heart: no gallops, no rubs, normal peripheral pulses, irregular Respiratory: no wheezes, no rales, no ronchi, normal chest expansion Gastrointestinal: non-distended, normal bowel sounds, no palpable masses, no guarding, no rigidity Neurological - other findings: Neuro/Psych - Cannot assess due to current mentation Hosp A/P - Plan DVT proph w/SCDs Consults: Palliative Care Acute CVA Encephalopathy due to above Sepsis due to Rt LE infected ulceration with cellulitis (POA) Chronic Afib HTN CAD Hyperkalemia - resolved CKD 2 PLAN: Repeat CT brain in AM Cont ASA Cont supportive care Resume Betablockers Cont IV Vancomycin Add IV Ceftriaxone Echo - normal EF AM labs
[2019-06-11] MEDS: cefTRIAXone\\ROCEPHIN 1 GM in Sodium Chloride 0.9% 100 ML IVPB SCH (23:18)
[2019-06-11] MEDS ORDERED: Vancomycin HCl 500 MG in Sodium Chloride 0.9% 100 ML IVPB SCH (23:59)
--- NOTE | 2019-06-12 00:04 | CON ---
DATE OF CONSULTATION: 06/11/2019 REASON FOR CONSULTATION: Stroke in a patient with atrial fibrillation. HISTORY OF PRESENT ILLNESS: Romina is a delightful 84-year-old woman with a history of chronic atrial fibrillation, recently had orthopedic problems including cellulitis and was going to need some surgical therapy. She was at [facility]. The patient had to go off the Xarelto in order to go to the operating room for the procedure that was needed and she was being brought to the operating room. The patient had sudden loss of speech, right-sided weakness. She was found to have an extensive middle cerebral artery stroke. Dr. Paris did a procedure on her to try to retrieve some of the thrombus. The patient has not really recovered much function. PAST HISTORY: 1. Chronic atrial fibrillation. 2. Peripheral edema. 3. Diastolic heart failure. MEDICATIONS: At home, please see nurse's notes as mentioned. Xarelto apparently had to be stopped in order to go to the operating room. REVIEW OF SYSTEMS: Not obtainable. She is aphasic. PHYSICAL EXAMINATION: GENERAL: This is an 84-year-old woman. She is aphasic, unresponsive, not moving the right side. VITAL SIGNS: Blood pressure 142/93, pulse 100 and irregular. LUNGS: Clear. CARDIAC: Irregularly irregular with an apical systolic murmur. ABDOMEN: Soft and nontender. EXTREMITIES: Not moving the right side at all. PERTINENT LABORATORY DATA: Hemoglobin is 12, potassium is 4.8, creatinine is 0.74. ASSESSMENT: 1. Extensive embolic stroke involving middle cerebral artery. 2. Chronic atrial fibrillation. PLAN: 1. She is back on the Xarelto. 2. She is on medicine to control heart rate nothing else to do from a cardiac standpoint. Will be available if needed. Please reconsult if needed. Job ID: [id number]
[2019-06-12] MEDS ORDERED: Vancomycin HCl 1 GM in Premix Bag 1 BAG IVPB SCH (01:00)
[2019-06-12] MEDS: Vancomycin HCl 1 GM in Premix Bag 1 BAG IVPB SCH (01:21)
[2019-06-12 05:44] LABS: #Lymphocytes 0.8 thou/uL (1.20-3.40); #Monocytes 0.9 thou/uL (0.11-0.59); #Neutrophils 13.2 thou/uL (1.40-6.50); %Basophils 0.1 % (0.0-1.0); %Eosinophils 0.2 % (0.0-10.0); %Lymphocytes 5.1 % (21.0-51.0); %Monocytes 5.9 % (0.0-10.0); %Neutrophils 88.7 % (42.0-75.0); Hemoglobin 11.1 g/dL (12.0-16.0); Mean Corpuscular HGB CONC 32.8 g/dL (32.0-36.0); Mean Corpuscular Volume 97.5 fL (78.0-98.0); Mean Platelet Volume 6.4 fL (7.4-10.4); Platelet Count 412 thou/uL (130-400); RBC Distribution Width 13.2 % (11.5-14.5); Red Blood Cell (RBC) Count 3.47 mill/uL (4.20-5.40); White Blood Cell (WBC) Count 14.9 thou/uL (4.8-10.8)
[2019-06-12 06:19] LABS: Anion Gap 11 mmol/L (10-20); BUN (Urea Nitrogen) 10 mg/dL (9.8-20.1); Calc. Creatinine Clearance 58 mL/min (70-130); Carbon Dioxide 22 mmol/L (23-31); Chloride 102 mmol/L (98-107); Estimated GFR-MDRD Greater than 90; Glucose 138 mg/dL (83-110); Potassium 3.7 mmol/L (3.5-5.1); Sodium 131 mmol/L (136-145)
[2019-06-12 06:35] LABS: Magnesium 1.7 mg/dL (1.6-2.6)
[2019-06-12] MEDS ORDERED: Atenolol 50 MG TAB PO SCH (09:00)
[2019-06-12] MEDS ORDERED: LIDOCAINE HCL 4% Topical Sol (4 ML SOLN.PK.G.) TP SCH (09:00)
--- NOTE | 2019-06-12 09:19 | PRG ---
DATE OF SERVICE: 06/12/2019 Ms. Vanegas is now on the floor after having sustained a large left middle cerebral artery distribution infarct. She underwent angiography and mechanical thrombectomy without success. Her neurologic exam has continued to decline. The repeat CT examination after procedure did not reveal any evidence for hemorrhagic transformation. Unfortunately, her prognosis is quite poor. The Neurosurgical Service will sign off and I appreciate the assistance of our hospitalist colleagues. Job ID: [id number]
--- NOTE | 2019-06-12 09:35 | CT ---
Head CT without contrast 06/12/2019: COMPARISON: 06/11/2019 HISTORY: Evaluate cerebral edema associated with left-sided infarction TECHNIQUE: Axial CT imaging at 5 mm intervals from vertex through skull base without contrast FINDINGS: The imaged paranasal sinuses and mastoid air cells are well aerated. There is no displaced calvarial fracture. There is atherosclerotic calcification of the cavernous carotid arteries and the distal vertebral arteries. There is extensive cytotoxic edema within the left cerebral hemisphere involving left MCA territory. The degree of cytotoxic edema and associated loss of patel-white differentiation, as well as associated crowding of cortical sulci, has worsened significantly since the 06/11/2019 exam. There has been interval worsening of effacement of the body of the left lateral ventricle and there is new left to right midline shift measuring approximately 5 mm. No intracranial hemorrhage. Developing hypodensity within the basal ganglia on the left is noted, evidence of developing left bas al ganglia infarction. IMPRESSION: Extensive cytotoxic edema within the MCA territory on the left consistent with acute infa rction. The degree of cytotoxic edema and associated mass effect has worsened with new left or right midline shift and worsening effacement of left lateral ventricle.
[2019-06-12] MEDS ORDERED: D5 0.9% NS w/ 20 mEq KCl 1,000 ML IV SCH (10:15)
[2019-06-12] MEDS: Acetaminophen ER (8hr) 650 MG TAB PO SCH (10:41)
[2019-06-12] MEDS: Aspirin 325 mg Enteric Coated Tablet PO SCH (10:41)
[2019-06-12] MEDS: Carbidopa/Levodopa CR 50-200 mg Tablet PO SCH ×3 (10:41→23:37)
[2019-06-12] MEDS: Aspirin 300 MG Suppository PR SCH (10:41)
[2019-06-12] MEDS: Lidocaine 4% Topical Sol 50 ML BOT TOP SCH (10:42)
[2019-06-12] MEDS ORDERED: Mannitol 12.5 GM/50 ML SLOW IVP SCH ×2 (12:45→13:00)
[2019-06-12] MEDS: D5 0.9% NS w/ 20 mEq KCl 1,000 ML IV SCH (13:09)
--- NOTE | 2019-06-12 17:28 | PDOC.HOSPP ---
- Subjective Encounter Date: 06/12/19 Encounter Time: 09:00 non-verbal Subjective: Patient seen and examined for acute CVA/Encephalopathy. No overnight events - Objective Vital Signs & Weight: Vital Signs (12 hours) Temp Pulse Resp BP Pulse Ox 06/12/19 16:10 98.8 F 95 16 161/87 H 100 06/12/19 12:06 99.5 F 105 H 16 160/97 H 98 06/12/19 10:41 96 06/12/19 08:00 97 06/12/19 07:33 98.4 F 96 18 169/80 H 97 Weight Admit Weight 119 lb Weight 119 lb 11.376 oz Most Recent Monitor Data Heart Rate from ECG 87 NIBP 142/93 NIBP BP-Mean 109 Respiration from ECG 23 SpO2 98 I&O: 06/11/19 06/12/19 06/13/19 06:59 06:59 06:59 Intake Total 734 Output Total 715 490 Balance 19 -490 Result Diagrams: 06/12/19 05:25 06/12/19 05:25 Additional Labs: Accuchecks 06/12/19 06/11/19 05:21 20:49 POC Glucose 154 H 140 H Radiology Reviewed by me: Yes (CT brain - Left MCA CVA with edema) Hospitalist ROS - Review of Systems ROS unobtainable: due to mental status - Medication Medications: Active Medications Generic Name Dose Route Start Last Admin Trade Name Freq PRN Reason Stop Dose Admin Acetaminophen 650 mg 06/11/19 09:00 06/12/19 10:41 Tylenol Er (8hr Arthritis Pain) PO Not Given DAILY [facility] Aspirin 325 mg 06/11/19 09:00 06/12/19 10:41 Ecotrin PO Not Given DAILY [facility] Aspirin 300 mg 06/11/19 09:00 06/12/19 10:41 Aspirin VT Not Given DAILY [facility] Atenolol 25 mg 06/12/19 09:00 06/12/19 10:41 Tenormin PO Not Given DAILY [facility] Carbidopa/Levodopa 1.5 tab 06/11/19 09:00 06/12/19 15:00 Sinemet Cr 50/200 PO Not Given TID [facility] Ceftriaxone Sodium 1 gm/ 100 mls @ 200 mls/hr 06/11/19 23:00 06/11/19 23:18 Sodium Chloride IVPB 100 mls Q24HR DWIGHT Administration Vancomycin HCl 1 gm/ Device 200 mls @ 200 mls/hr 06/12/19 01:00 06/12/19 01: 21 IVPB 200 mls 0100 DWIGHT Administration Potassium Chloride/Dextrose/Sod Cl 1,000 mls @ 100 mls/hr 06/12/19 12:47 13:09 D5 0.9% Ns W/ 20 Meq Kcl IV Not Given .Q10H DWIGHT Lidocaine HCl 50 ml 06/12/19 09:00 06/12/19 10:42 Xylocaine 4% Topical Sheree TOP Not Given DAILY [facility] Pantoprazole Sodium 40 mg 06/11/19 21:00 06/11/19 20:41 Protonix IVP 40 mg HS DWIGHT Administration - Exam General Appearance: NAD Heart: no gallops, no rubs, normal peripheral pulses, irregular Respiratory: no wheezes, no rales, no ronchi, normal chest expansion Gastrointestinal: soft, non-distended, no guarding, no rigidity Neurological - other findings: Neuro/Psych - cannot assess due to current mentation Hosp A/P - Plan plan discussed w/ family, DVT proph w/SCDs Acute Left MCA CVA with vasogenic edema Encephalopathy due to above Sepsis due to Rt LE infected ulceration with cellulitis (POA) Chronic Afib HTN CAD Hyperkalemia - resolved CKD 2 PLAN: Repeat CT brain reviewed Cont ASA Neuro following I d/w J Vincent with Neurosurgery - Recommended Mannitol 50 x 1 Cont supportive care Resume Betablockers Cont IV Vancomycin/Ceftriaxone Echo - reviewed AM labs including Osmolarity
--- NOTE | 2019-06-12 17:33 | PDOC.FMACP ---
Advance Care Planning - Problem (1) Acute CVA (cerebrovascular accident) Status: Acute Code(s): I63.9 - CEREBRAL INFARCTION, UNSPECIFIED - Note Participants: family (daughter) Summary: Advanced Care Planning was discussed with daughter at 9am. The diagnosis, prognosis and goals of care were discussed. Appropriate forms and documentation to accomplish the goals of care were discussed. All questions were answered. The Palliative Care Team will be engaged to assist with completion of any outstanding forms that are needed. Time Spent (mins): 30
[2019-06-12] MEDS: hydrALAZINE 20 MG/ML VIAL SLOW IVP PRN (18:06)
--- NOTE | 2019-06-12 19:15 | RAD ---
EXAM: ABDOMEN ONE VIEW: 06/12/19 HISTORY: Confirm Dobhoff tube placement position. FINDINGS: A Dobhoff tube is noted with the tip extending into the region of the body of the stomach. Lumbothora cic scoliosis. Parenchymal changes in the right infrahilar region which could possibly represent pneu monia or atelectasis. No large or small bowel obstruction. IMPRESSION: Dobhoff tube with the tip in the general region of the body of the stomach. POS: RRE
[2019-06-12] MEDS: Pantoprazole 40 MG VIAL IVP SCH (20:59)
[2019-06-13] MEDS: cefTRIAXone\\ROCEPHIN 1 GM in Sodium Chloride 0.9% 100 ML IVPB SCH ×2 (00:59→23:15)
[2019-06-13] MEDS ORDERED: D5 1/2 NS w/20 mEq KCL 0 ML ONE (02:35)
[2019-06-13] MEDS: Vancomycin HCl 1 GM in Premix Bag 1 BAG IVPB SCH (02:37)
[2019-06-13] MEDS: D5 0.9% NS w/ 20 mEq KCl 1,000 ML IV SCH ×2 (03:11→15:39)
[2019-06-13 04:44] LABS: #Lymphocytes 0.6 thou/uL (1.20-3.40); #Monocytes 1.1 thou/uL (0.11-0.59); #Neutrophils 13.9 thou/uL (1.40-6.50); %Eosinophils 0.3 % (0.0-10.0); %Monocytes 7.2 % (0.0-10.0); %Neutrophils 88.5 % (42.0-75.0); Hemoglobin 11.4 g/dL (12.0-16.0); Mean Corpuscular HGB CONC 32.1 g/dL (32.0-36.0); Mean Corpuscular Hemoglobin 31.4 pg (27.0-31.0); Mean Corpuscular Volume 97.8 fL (78.0-98.0); Mean Platelet Volume 6.7 fL (7.4-10.4); Platelet Count 368 thou/uL (130-400); Red Blood Cell (RBC) Count 3.64 mill/uL (4.20-5.40); White Blood Cell (WBC) Count 15.7 thou/uL (4.8-10.8)
[2019-06-13 05:16] LABS: Anion Gap 12 mmol/L (10-20); BUN (Urea Nitrogen) 7 mg/dL (9.8-20.1); Calc. Creatinine Clearance 61 mL/min (70-130); Calcium 8.1 mg/dL (7.8-10.44); Carbon Dioxide 21 mmol/L (23-31); Chloride 100 mmol/L (98-107); Estimated GFR-MDRD Greater than 90; Glucose 153 mg/dL (83-110); Potassium 3.4 mmol/L (3.5-5.1); Sodium 130 mmol/L (136-145)
[2019-06-13] MEDS: Aspirin 300 MG Suppository PR SCH (09:14)
[2019-06-13] MEDS: Acetaminophen 650 MG/20.3 ML UDCUP PER TUBE SCH (09:15)
[2019-06-13] MEDS: Atenolol 50 MG TAB PER TUBE SCH (09:15)
[2019-06-13] MEDS: Carbidopa/Levodopa CR 50-200 mg Tablet PO SCH ×3 (09:16→23:14)
[2019-06-13] MEDS: Aspirin 325 MG TAB PER TUBE SCH (09:17)
[2019-06-13] MEDS: Lidocaine 4% Topical Sol 50 ML BOT TOP SCH (10:20)
--- NOTE | 2019-06-13 11:16 | CT ---
CT BRAIN WITHOUT IV CONTRAST: HISTORY: Follow up CVA/infarct. COMPARISON: 06/12/2019 FINDINGS: Again noted is a large left middle cerebral artery distribution infarct with extensive edema. There i s again noted to be approximately 0.5 cm of midline shift to the right. Atrophy and chronic white mat ter ischemic changes appear stable. No evidence for acute hemorrhage. IMPRESSION: Large stable left middle cerebral artery distribution infarct with extensive edema and midline shift to the right without new hemorrhage. POS: CHRIS
--- NOTE | 2019-06-13 15:38 | PDOC.HOSPP ---
- Subjective Encounter Date: 06/13/19 Encounter Time: 15:15 Subjective: f/u for L MCA CVA with extensive edema, aphasic, minimally responsive on ASA, Mannitol. s/p unsuccessful mechanical thrombectomy. - Objective Vital Signs & Weight: Vital Signs (12 hours) Temp Pulse Resp BP BP BP Pulse Ox 06/13/19 11:54 66 102/53 L 06/13/19 11:40 97.8 F 63 24 H 100 06/13/19 09:15 93 142/88 H 06/13/19 09:00 100 06/13/19 07:43 98.4 F 93 16 142/88 H 100 Weight Admit Weight 119 lb Weight 119 lb 11.376 oz Most Recent Monitor Data Heart Rate from ECG 87 NIBP 142/93 NIBP BP-Mean 109 Respiration from ECG 23 SpO2 98 I&O: 06/12/19 06/13/19 06/14/19 06:59 06:59 06:59 Intake Total 1174 Output Total 490 2400 Balance -490 -2887 Result Diagrams: 06/13/19 04:22 06/13/19 04:22 Additional Labs: Microbiology 06/10/19 21:21 Venous blood - Right Hand Blood Culture - Preliminary NO GROWTH AT 48 HOURS 06/10/19 21:10 Venous blood - Left Arm Blood Culture - Preliminary NO GROWTH AT 48 HOURS 06/10/19 21:01 Leg - Right Bacterial Culture - Preliminary Laboratory Tests 06/10/19 06/10/19 06/11/19 21:10 21:10 03:00 WBC 17.2 H 11.9 H Sodium 137 Serum Osmolality Magnesium 06/11/19 06/12/19 06/12/19 03:30 05:25 05:25 WBC 14.9 H Sodium 135 L 131 L Serum Osmolality Magnesium 1.7 06/13/19 04:22 WBC Sodium Serum Osmolality 273 L Magnesium Radiology Reviewed by me: Yes (CT brain - Large L MCA territorial CVA with extensive edema, 0.5cm shift) EKG Reviewed by me: Yes (Tele - A-fib) Hospitalist ROS - Medication Medications: Active Medications Generic Name Dose Route Start Last Admin Trade Name Freq PRN Reason Stop Dose Admin Acetaminophen 650 mg 06/13/19 09:00 06/13/19 09:15 Tylenol Elixir PER TUBE 650 mg DAILY DWIGHT Administration Aspirin 300 mg 06/11/19 09:00 02/01/20 09:14 Aspirin SD Not Given DAILY [facility] Aspirin 325 mg 06/13/19 09:00 06/13/19 09:17 Aspirin PER TUBE 325 mg DAILY DWIGHT Administration Atenolol 25 mg 06/13/19 09:00 06/13/19 09:15 Tenormin PER TUBE 25 mg DAILY DWIGHT Administration Carbidopa/Levodopa 1.5 tab 06/11/19 09:00 06/13/19 14:55 Sinemet Cr 50/200 PO 1.5 tab TID DWIGHT Administration Hydralazine HCl 10 mg 06/10/19 19:27 06/12/19 18:06 Apresoline SLOW IVP 10 mg Q4H PRN Administration SBP > 180 or DBP > 105 Ceftriaxone Sodium 1 gm/ 100 mls @ 200 mls/hr 06/11/19 23:00 06/13/19 00:59 Sodium Chloride IVPB 100 mls Q24HR DWIGHT Administration Vancomycin HCl 1 gm/ Device 200 mls @ 200 mls/hr 06/12/19 01:00 06/13/19 02: 37 IVPB 200 mls 0100 DWIGHT Administration Potassium Chloride/Dextrose/Sod Cl 1,000 mls @ 100 mls/hr 06/12/19 12:47 06/01 03:11 D5 0.9% Ns W/ 20 Meq Kcl IV 1,000 mls .Q10H DWIGHT Administration Lidocaine HCl 50 ml 06/12/19 09:00 06/13/19 10:20 Xylocaine 4% Topical Sheree TOP 1 applic DAILY DWIGHT Administration Pantoprazole Sodium 40 mg 06/11/19 21:00 06/12/19 20:59 Protonix IVP 40 mg HS DWIGHT Administration - Exam General - other findings: somnolent, minimally responsive ENT: normocephalic atraumatic, no oropharyngeal lesions ENT - other findings: Dobhoff feeding tube in place Neck: supple, symmetric, no JVD Heart: no gallops, no rubs, normal peripheral pulses, irregular Respiratory - other findings: few scattered rhonchi Gastrointestinal: soft, non-tender, non-distended, normal bowel sounds, no palpable masses Extremities - other findings: chronic changes bilat, RLE ulceration with dressings in place Skin: normal turgor Neurological - other findings: aphasic, R hemiplegia, somnolent, dysphagia Psychiatric: somnolent, lethargic Hosp A/P (1) 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 Code(s): I63.412 - CEREB INFRC DUE TO EMBOLISM OF LEFT MIDDLE CEREBRAL ARTERY Status: Acute Plan: Continue supportive mgmt, resume home Xarelto, ASA daily, stroke protocol (2) Aphasia Code(s): R47.01 - APHASIA Status: Acute Plan: continue routine stroke protocol (3) Dysphagia Code(s): R13.10 - DYSPHAGIA, UNSPECIFIED Status: Acute Qualifiers: Dysphagia type: oropharyngeal phase Qualified Code(s): R13.12 - Dysphagia, oropharyngeal phase Plan: Continue TF's (4) Cellulitis of right lower extremity Code(s): L03.115 - CELLULITIS OF RIGHT LOWER LIMB Status: Acute Plan: s/p I&D with local wound care, continue Rocephin/Vancomycin, WCT (5) Chronic anticoagulation Code(s): Z79.01 - IT SUPPORT ANALYST (CURRENT) USE OF ANTICOAGULANTS Status: Chronic Plan: Resume Xarelto - Plan plan discussed w/ family, continue antibiotics, PT/OT, social service assistant, speech therapy, DVT proph w/SCDs Continue supportive mgmt Continue ASA daily Resume Xarelto in am Continue Mannitol IV Trial Dexamethasone 4mg IV q6h Nutritional support with TF's AM lab: BMP, Serum osmolality
[2019-06-13] MEDS: Dexamethasone 4 mg/ml Vial SLOW IVP SCH ×2 (15:57→23:14)
[2019-06-13] MEDS: Mannitol 12.5 GM/50 ML SLOW IVP SCH (16:51)
[2019-06-13] MEDS: Sodium Bicarbonate Tab 325 MG TAB PER TUBE PRN (17:15)
[2019-06-13] MEDS: Pancrelipase DR 12000 1 CAP FS PRN (17:16)
[2019-06-13] MEDS: Pantoprazole 40 MG VIAL IVP SCH (23:15)
[2019-06-14 00:41] LABS: Vancomycin, Trough 6.3 ug/mL
[2019-06-14] MEDS: Mannitol 12.5 GM/50 ML SLOW IVP SCH ×2 (00:57→08:54)
[2019-06-14] MEDS: Vancomycin HCl 1 GM in Premix Bag 1 BAG IVPB SCH ×2 (00:58→13:55)
[2019-06-14] MEDS: D5 0.9% NS w/ 20 mEq KCl 1,000 ML IV SCH ×2 (03:56→13:54)
[2019-06-14] MEDS: Dexamethasone 4 mg/ml Vial SLOW IVP SCH ×4 (03:56→21:11)
[2019-06-14 05:45] LABS: Anion Gap 12 mmol/L (10-20); BUN (Urea Nitrogen) 11 mg/dL (9.8-20.1); Calc. Creatinine Clearance 59 mL/min (70-130); Calcium 8.2 mg/dL (7.8-10.44); Carbon Dioxide 22 mmol/L (23-31); Chloride 103 mmol/L (98-107); Estimated GFR-MDRD Greater than 90; Glucose 207 mg/dL (83-110); Potassium 4.3 mmol/L (3.5-5.1); Sodium 133 mmol/L (136-145)
[2019-06-14] MEDS ORDERED: FLU VACC TS2019-20(65YR UP)/PF 180 MCG/0.5 ML SYRINGE IM ONE (09:00)
[2019-06-14] MEDS: Acetaminophen 650 MG/20.3 ML UDCUP PER TUBE SCH (10:41)
[2019-06-14] MEDS: Aspirin 325 MG TAB PER TUBE SCH (10:41)
[2019-06-14] MEDS: Carbidopa/Levodopa CR 50-200 mg Tablet PO SCH ×3 (10:41→21:11)
[2019-06-14] MEDS: Atenolol 50 MG TAB PER TUBE SCH (10:42)
[2019-06-14] MEDS: Lidocaine 4% Topical Sol 50 ML BOT TOP SCH (10:43)
[2019-06-14] MEDS: Aspirin 300 MG Suppository PR SCH (10:50)
--- NOTE | 2019-06-14 12:34 | PDOC.HOSPP ---
- Subjective Encounter Date: 06/14/19 Encounter Time: 12:30 Subjective: f/u for large L MCA CVA with extensive edema and midline shift on current Mannitol/Dexamethasone. Remains somnolent but reacts briefly to voice/tactile stimulus. - Objective Vital Signs & Weight: Vital Signs (12 hours) Temp Pulse Resp BP BP Pulse Ox 06/14/19 11:44 98.1 F 100 24 H 176/97 H 98 06/14/19 10:42 100 138/85 06/14/19 08:00 98.3 F 100 20 138/85 100 06/14/19 03:42 99.5 F 95 20 152/94 H 99 Weight Admit Weight 119 lb Weight 119 lb 11.376 oz Most Recent Monitor Data Heart Rate from ECG 87 NIBP 142/93 NIBP BP-Mean 109 Respiration from ECG 23 SpO2 98 I&O: 06/13/19 06/14/19 06/15/19 06:59 06:59 06:59 Intake Total 1174 1370 Output Total 2400 550 Balance -1226 820 Result Diagrams: 06/17/19 04:49 06/16/19 04:17 Additional Labs: Microbiology 06/10/19 21:21 Venous blood - Right Hand Blood Culture - Preliminary NO GROWTH AT 48 HOURS 06/10/19 21:10 Venous blood - Left Arm Blood Culture - Preliminary NO GROWTH AT 48 HOURS 06/10/19 21:01 Leg - Right Bacterial Culture - Preliminary Laboratory Tests 06/10/19 06/10/19 06/11/19 21:10 21:10 03:00 WBC 17.2 H 11.9 H Sodium 137 Potassium Serum Osmolality Magnesium Vancomycin Trough 06/11/19 06/11/19 06/12/19 03:30 23:13 05:25 WBC Sodium 135 L 131 L Potassium Serum Osmolality Magnesium 1.7 Vancomycin Trough 8.0 06/12/19 06/13/19 06/13/19 05:25 04:22 04:22 WBC 14.9 H Sodium 130 L Potassium 3.4 L Serum Osmolality 273 L Magnesium Vancomycin Trough 06/14/19 06/14/19 00:18 05:01 WBC Sodium Potassium Serum Osmolality 291 Magnesium Vancomycin Trough 6.3 Radiology Reviewed by me: Yes (CT brain - minimally less midline shift, persistent edema) EKG Reviewed by me: Yes (Tele - A-fib) Hospitalist ROS - Medication Medications: Active Medications Generic Name Dose Route Start Last Admin Trade Name Freq PRN Reason Stop Dose Admin Acetaminophen 650 mg 06/11/19 20:56 06/14/19 00:00 Tylenol [place] 650 mg Q4H PRN Administration Headache/Fever/MILD Pain 1-3 Acetaminophen 650 mg 06/13/19 09:00 06/14/19 10:41 Tylenol Elixir PER TUBE 650 mg DAILY DWIGHT Administration Lipase/Protease/Amylase 1 cap 06/13/19 15:42 06/13/19 17:16 Garcia Martin [id number] FS 1 cap .PER PROTOCOL PRN Administration TUBE OCCLUSION PROTOCOL Aspirin 300 mg 06/11/19 09:00 06/14/19 10:50 Aspirin [place] Not Given DAILY [facility] Aspirin 325 mg 06/13/19 09:00 06/14/19 10:41 Aspirin PER TUBE 325 mg DAILY DWIGHT Administration Atenolol 25 mg 06/13/19 09:00 06/14/19 10:42 Tenormin PER TUBE 25 mg DAILY DWIGHT Administration Carbidopa/Levodopa 1.5 tab 06/11/19 09:00 06/14/19 10:41 Sinemet Cr 50/200 PO 1.5 tab TID DWIGHT Administration Dexamethasone 4 mg 06/13/19 15:00 06/14/19 10:41 Decadron SLOW IVP 4 mg Q6H DWIGHT Administration Hydralazine HCl 10 mg 06/10/19 19:27 06/12/19 18:06 Apresoline SLOW IVP 10 mg Q4H PRN Administration SBP > 180 or DBP > 105 Ceftriaxone Sodium 1 gm/ 100 mls @ 200 mls/hr 06/11/19 23:00 06/13/19 23:15 Sodium Chloride IVPB 100 mls Q24HR DWIGHT Administration Potassium Chloride/Dextrose/Sod Cl 1,000 mls @ 100 mls/hr 06/12/19 12:47 07/02 03:56 D5 0.9% Ns W/ 20 Meq Kcl IV 1,000 mls .Q10H DWIGHT Administration Lidocaine HCl 50 ml 06/12/19 09:00 06/14/19 10:43 Xylocaine 4% Topical Sheree TOP Not Given DAILY DWIGHT Pantoprazole Sodium 40 mg 06/11/19 21:00 06/13/19 23:15 Protonix IVP 40 mg HS DWIGHT Administration Sodium Bicarbonate 650 mg 06/13/19 15:42 06/13/19 17:15 Bicarbonate, Sodium PER TUBE 650 mg .PER PROTOCOL PRN Administration ENTERAL TUBE OCCLUSION - Exam General - other findings: somnolent, mumbles incoherently Eye: PERRL, anicteric sclera ENT: normocephalic atraumatic, no oropharyngeal lesions ENT - other findings: Dobhoff in place Neck: supple, symmetric, no JVD, no thyromegaly Heart: no gallops, no rubs, normal peripheral pulses, irregular Respiratory: CTAB, no wheezes, no rales, no ronchi, normal chest expansion Gastrointestinal: soft, non-tender, non-distended, normal bowel sounds, no palpable masses Extremities: no cyanosis, no clubbing, no edema Neurological - other findings: R hemiplegia, dysphagia, aphasia Musculoskeletal: generalized weakness Psychiatric: somnolent, lethargic Hosp A/P (1) 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 Code(s): I63.412 - CEREB INFRC DUE TO EMBOLISM OF LEFT MIDDLE CEREBRAL ARTERY Status: Acute Plan: Continue supportive mgmt, continue Mannitol/Dexamethasone, CT brain pending, stroke protocol (2) Aphasia Code(s): R47.01 - APHASIA Status: Acute Plan: 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, anticipate slow improvement (3) Dysphagia Code(s): R13.10 - DYSPHAGIA, UNSPECIFIED Status: Acute Qualifiers: Dysphagia type: oropharyngeal phase Qualified Code(s): R13.12 - Dysphagia, oropharyngeal phase Plan: NPO currently and receiving TF's through Dobhoff (4) Cellulitis of right lower extremity Code(s): L03.115 - CELLULITIS OF RIGHT LOWER LIMB Status: Acute Plan: Local WCT, dressing changes, continue Rocephin/Vancomycin (5) Chronic anticoagulation Code(s): Z79.01 - DELIVERY LEAD (CURRENT) USE OF ANTICOAGULANTS Status: Chronic Plan: Resuming Xarelto today - Plan plan discussed w/ family, continue antibiotics, PT/OT, social services technician, speech therapy, DVT proph w/SCDs Continue supportive mgmt Continue ASA daily Resume Xarelto today Completed Mannitol infusion Trial Dexamethasone 4mg IV q6h Nutritional support with TF's AM lab: BMP, Serum osmolality
--- NOTE | 2019-06-14 12:49 | CT ---
Exam: Brain CT without IV contrast: HISTORY: Follow-up CVA COMPARISON: 06/13/2019 Again noted is a large left middle cerebral artery distribution infarct. Minimally less midline shift on today's study than yesterday's study no significant new hemorrhage. IMPRESSION: Persistent large left middle cerebral artery distribution infarct with slightly less mass effect than on yesterday's study.
[2019-06-14] MEDS ORDERED: Rivaroxaban 15 MG TAB PO SCH (17:00)
[2019-06-14] MEDS: Rivaroxaban 10 MG TAB PO SCH (17:53)
[2019-06-14] MEDS: Pantoprazole 40 MG VIAL IVP SCH (21:12)
[2019-06-14] MEDS: cefTRIAXone\\ROCEPHIN 1 GM in Sodium Chloride 0.9% 100 ML IVPB SCH (22:26)
[2019-06-15] MEDS: Vancomycin HCl 1 GM in Premix Bag 1 BAG IVPB SCH ×2 (01:01→14:30)
[2019-06-15] MEDS: Dexamethasone 4 mg/ml Vial SLOW IVP SCH ×4 (02:38→22:54)
[2019-06-15] MEDS: D5 0.9% NS w/ 20 mEq KCl 1,000 ML IV SCH (04:00)
[2019-06-15 05:06] LABS: Hemoglobin 11.4 g/dL (12.0-16.0); Platelet Count 406 thou/uL (130-400)
[2019-06-15 05:29] LABS: Anion Gap 12 mmol/L (10-20); BUN (Urea Nitrogen) 18 mg/dL (9.8-20.1); Calc. Creatinine Clearance 63 mL/min (70-130); Calcium 8.6 mg/dL (7.8-10.44); Carbon Dioxide 23 mmol/L (23-31); Chloride 105 mmol/L (98-107); Estimated GFR-MDRD Greater than 90; Glucose 172 mg/dL (83-110); Potassium 4.3 mmol/L (3.5-5.1); Sodium 136 mmol/L (136-145)
[2019-06-15] MEDS ORDERED: Midazolam HCl 2 mg/ml Syrup 5 ml UD Cup ONE (09:13)
[2019-06-15] MEDS: Lidocaine 4% Topical Sol 50 ML BOT TOP SCH (09:27)
[2019-06-15] MEDS: Aspirin 300 MG Suppository PR SCH (10:46)
[2019-06-15] MEDS: Acetaminophen 650 MG/20.3 ML UDCUP PER TUBE SCH (11:01)
[2019-06-15] MEDS: Carbidopa/Levodopa CR 50-200 mg Tablet PO SCH ×3 (11:01→22:53)
[2019-06-15] MEDS: Atenolol 50 MG TAB PER TUBE SCH (11:02)
[2019-06-15] MEDS: Aspirin 325 MG TAB PER TUBE SCH (11:03)
--- NOTE | 2019-06-15 14:51 | PDOC.HOSPP ---
- Subjective Encounter Date: 06/15/19 Encounter Time: 14:45 Subjective: f/u for large L MCA territorial CVA with extensive edema s/p Mannitol and currently on Dexamethasone. Remains somnolent per nursing. Receiving TF's with low residuals. - Objective Vital Signs & Weight: Vital Signs (12 hours) Temp Pulse Resp BP BP Pulse Ox 06/15/19 11:41 98.7 F 93 18 99 06/15/19 11:02 82 174/100 H 06/15/19 08:00 98.4 F 82 20 174/100 H 97 06/15/19 04:00 97.9 F 94 16 177/108 H 97 Weight Admit Weight 119 lb Weight 119 lb 11.376 oz Most Recent Monitor Data Heart Rate from ECG 87 NIBP 142/93 NIBP BP-Mean 109 Respiration from ECG 23 SpO2 98 I&O: 06/14/19 06/15/19 06/16/19 06:59 06:59 06:59 Intake Total 1370 3650 Output Total 550 2900 Balance 820 750 Result Diagrams: 06/15/19 04:46 06/15/19 04:46 Additional Labs: Microbiology 06/10/19 21:21 Venous blood - Right Hand Blood Culture - Preliminary NO GROWTH AT 48 HOURS 06/10/19 21:10 Venous blood - Left Arm Blood Culture - Preliminary NO GROWTH AT 48 HOURS 06/10/19 21:01 Leg - Right Bacterial Culture - Preliminary Laboratory Tests 06/10/19 06/10/19 06/11/19 21:10 21:10 03:00 WBC 17.2 H 11.9 H Sodium 137 Potassium Serum Osmolality Magnesium Vancomycin Trough 06/11/19 06/11/19 06/12/19 03:30 23:13 05:25 WBC Sodium 135 L 131 L Potassium Serum Osmolality Magnesium 1.7 Vancomycin Trough 8.0 06/12/19 06/13/19 06/13/19 05:25 04:22 04:22 WBC 14.9 H Sodium 130 L Potassium 3.4 L Serum Osmolality 273 L Magnesium Vancomycin Trough 06/14/19 06/14/19 00:18 05:01 WBC Sodium Potassium Serum Osmolality 291 Magnesium Vancomycin Trough 6.3 EKG Reviewed by me: Yes (Tele - A-fib) Hospitalist ROS - Medication Medications: Active Medications Generic Name Dose Route Start Last Admin Trade Name Freq PRN Reason Stop Dose Admin Acetaminophen 650 mg 06/11/19 20:56 06/14/19 00:00 Tylenol [place] 650 mg Q4H PRN Administration Headache/Fever/MILD Pain 1-3 Acetaminophen 650 mg 06/13/19 09:00 06/15/19 11:01 Tylenol Elixir PER TUBE 650 mg DAILY DWIGHT Administration Lipase/Protease/Amylase 1 cap 06/13/19 15:42 06/13/19 17:16 Garcia Martin [id number] FS 1 cap .PER PROTOCOL PRN Administration TUBE OCCLUSION PROTOCOL Aspirin 300 mg 06/11/19 09:00 06/15/19 10:46 Aspirin RI Not Given DAILY [facility] Aspirin 325 mg 06/13/19 09:00 06/15/19 11:03 Aspirin PER TUBE 325 mg DAILY DWIGHT Administration Atenolol 25 mg 06/13/19 09:00 06/15/19 11:02 Tenormin PER TUBE 25 mg DAILY DWIGHT Administration Carbidopa/Levodopa 1.5 tab 06/11/19 09:00 06/15/19 14:31 Sinemet Cr 50/200 PO 1.5 tab TID DWIGHT Administration Dexamethasone 4 mg 06/13/19 15:00 06/15/19 14:32 Decadron SLOW IVP 4 mg Q6H DWIGHT Administration Hydralazine HCl 10 mg 06/10/19 19:27 06/12/19 18:06 Apresoline SLOW IVP 10 mg Q4H PRN Administration SBP > 180 or DBP > 105 Ceftriaxone Sodium 1 gm/ 100 mls @ 200 mls/hr 06/11/19 23:00 06/14/19 22:26 Sodium Chloride IVPB 100 mls Q24HR DWIGHT Administration Vancomycin HCl 1 gm/ Device 200 mls @ 200 mls/hr 06/14/19 13:00 06/15/19 14: 30 IVPB 200 mls 0100,1300 DWIGHT Administration Lidocaine HCl 50 ml 06/12/19 09:00 06/15/19 09:27 Xylocaine 4% Topical Sheree TOP 1 applic DAILY DWIGHT Administration Pantoprazole Sodium 40 mg 06/11/19 21:00 06/14/19 21:12 Protonix IVP 40 mg HS DWIGHT Administration Rivaroxaban 20 mg 06/14/19 17:00 06/14/19 17:53 Xarelto PO 20 mg 1700 DWIGHT Administration Sodium Bicarbonate 650 mg 06/13/19 15:42 06/13/19 17:15 Bicarbonate, Sodium PER TUBE 650 mg .PER PROTOCOL PRN Administration ENTERAL TUBE OCCLUSION - Exam General Appearance: ill appearing General - other findings: somnolent, unresponsive Eye: PERRL, anicteric sclera ENT: normocephalic atraumatic, no oropharyngeal lesions ENT - other findings: Dobhoff in nares Neck: supple, symmetric, no JVD, no thyromegaly Heart: no gallops, no rubs, normal peripheral pulses, irregular Respiratory - other findings: coarse sounds bilat Gastrointestinal: soft, non-tender, non-distended, normal bowel sounds Extremities: no cyanosis, no clubbing Skin: normal turgor, no lesions Neurological: no new deficit Neurological - other findings: aphasic, unresponsive Psychiatric: somnolent, lethargic Hosp A/P (1) 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 Code(s): I63.412 - CEREB INFRC DUE TO EMBOLISM OF LEFT MIDDLE CEREBRAL ARTERY Status: Acute Plan: Large L MCA infarct with extensive cerebral edema, likely end-stage event (2) Aphasia Code(s): R47.01 - APHASIA Status: Acute (3) Dysphagia Code(s): R13.10 - DYSPHAGIA, UNSPECIFIED Status: Acute Qualifiers: Dysphagia type: oropharyngeal phase Qualified Code(s): R13.12 - Dysphagia, oropharyngeal phase Plan: Continue nutritional support with TF's (4) Cellulitis of right lower extremity Code(s): L03.115 - CELLULITIS OF RIGHT LOWER LIMB Status: Acute Plan: Continue Rocephin/Vancomycin (5) Chronic anticoagulation Code(s): Z79.01 - CARE HOME (CURRENT) USE OF ANTICOAGULANTS Status: Chronic Plan: Resumed Xarelto - Plan continue antibiotics, PT/OT, geriatric social work professor, speech therapy, respiratory therapy, DVT proph w/SCDs Continue supportive mgmt Continue ASA daily Resume Xarelto today Completed Mannitol infusion Trial Dexamethasone 4mg IV q6h Start Keppra 500mg IV BID Nutritional support with TF's AM lab: BMP
[2019-06-15] MEDS: Rivaroxaban 10 MG TAB PO SCH (18:38)
[2019-06-15] MEDS: Pantoprazole 40 MG VIAL IVP SCH (22:54)
[2019-06-16] MEDS: cefTRIAXone\\ROCEPHIN 1 GM in Sodium Chloride 0.9% 100 ML IVPB SCH (00:01)
[2019-06-16] MEDS: Vancomycin HCl 1 GM in Premix Bag 1 BAG IVPB SCH ×2 (00:34→13:39)
[2019-06-16] MEDS: Dexamethasone 4 mg/ml Vial SLOW IVP SCH ×4 (03:58→22:23)
[2019-06-16 05:03] LABS: Calc. Creatinine Clearance 62 mL/min (70-130); Estimated GFR-MDRD Greater than 90
[2019-06-16] MEDS ORDERED: Carbidopa/Levodopa CR 50-200 mg Tablet PO SCH (09:00)
[2019-06-16] MEDS: Acetaminophen 650 MG/20.3 ML UDCUP PER TUBE SCH (09:28)
[2019-06-16] MEDS: Aspirin 325 MG TAB PER TUBE SCH (09:28)
[2019-06-16] MEDS: Atenolol 50 MG TAB PER TUBE SCH (09:28)
[2019-06-16] MEDS: Carbidopa/Levodopa CR 50-200 mg Tablet PO SCH ×4 (09:28→22:30)
[2019-06-16] MEDS: Lidocaine 4% Topical Sol 50 ML BOT TOP SCH (09:31)
[2019-06-16] MEDS: Aspirin 300 MG Suppository PR SCH (09:32)
[2019-06-16] MEDS ORDERED: Sodium Chloride 0.9% (PF) 10 ML VIAL FS PRN (15:12)
[2019-06-16] MEDS: Rivaroxaban 10 MG TAB PO SCH (17:38)
--- NOTE | 2019-06-16 18:41 | PDOC.HOSPP ---
- Subjective Encounter Date: 06/16/19 Encounter Time: 18:35 Subjective: f/u for L MCA CVA with extensive edema managed with Mannitol initially and now Dexamethasone. Remains aphasic, opens eyes and tracks, squeezes with L hand. Tolerating Jevity 1.2 TF's currently. - Objective Vital Signs & Weight: Vital Signs (12 hours) Temp Pulse Pulse Pulse Resp BP BP 06/16/19 15:25 98 F 71 20 06/16/19 14:05 63 73 149/83 H 168/82 H 06/16/19 12:00 98.1 F 99 16 06/16/19 09:28 87 06/16/19 07:53 98.4 F 87 16 06/16/19 07:33 BP Pulse Ox 06/16/19 15:25 145/83 H 96 06/16/19 14:05 06/16/19 12:00 136/95 H 100 06/16/19 09:28 06/16/19 07:53 163/84 H 97 06/16/19 07:33 96 Weight Admit Weight 119 lb Weight 119 lb 11.376 oz Most Recent Monitor Data Heart Rate from ECG 87 NIBP 142/93 NIBP BP-Mean 109 Respiration from ECG 23 SpO2 98 I&O: 06/15/19 06/16/19 06/17/19 06:59 06:59 06:59 Intake Total 3650 1602 1706 Output Total 2900 1050 1050 Balance 750 552 656 Result Diagrams: 06/15/19 04:46 06/16/19 04:17 Additional Labs: Microbiology 06/10/19 21:21 Venous blood - Right Hand Blood Culture - Preliminary NO GROWTH AT 48 HOURS 06/10/19 21:10 Venous blood - Left Arm Blood Culture - Preliminary NO GROWTH AT 48 HOURS 06/10/19 21:01 Leg - Right Bacterial Culture - Preliminary Laboratory Tests 06/10/19 06/10/19 06/11/19 21:10 21:10 03:00 WBC 17.2 H 11.9 H Sodium 137 Potassium Serum Osmolality Magnesium Vancomycin Trough 06/11/19 06/11/19 06/12/19 03:30 23:13 05:25 WBC Sodium 135 L 131 L Potassium Serum Osmolality Magnesium 1.7 Vancomycin Trough 8.0 06/12/19 06/13/19 06/13/19 05:25 04:22 04:22 WBC 14.9 H Sodium 130 L Potassium 3.4 L Serum Osmolality 273 L Magnesium Vancomycin Trough 06/14/19 06/14/19 00:18 05:01 WBC Sodium Potassium Serum Osmolality 291 Magnesium Vancomycin Trough 6.3 EKG Reviewed by me: Yes (Tele - A-fib) Hospitalist ROS - Medication Medications: Active Medications Generic Name Dose Route Start Last Admin Trade Name Freq PRN Reason Stop Dose Admin Acetaminophen 650 mg 06/11/19 20:56 06/14/19 00:00 Tylenol [place] 650 mg Q4H PRN Administration Headache/Fever/MILD Pain 1-3 Acetaminophen 650 mg 06/13/19 09:00 06/16/19 09:28 Tylenol Elixir PER TUBE 650 mg DAILY DWIGHT Administration Lipase/Protease/Amylase 1 cap 06/13/19 15:42 06/13/19 17:16 Cregaro Martin [id number] FS 1 cap .PER PROTOCOL PRN Administration TUBE OCCLUSION PROTOCOL Aspirin 300 mg 06/11/19 09:00 06/16/19 09:32 Aspirin [place] Not Given DAILY [facility] Aspirin 325 mg 06/13/19 09:00 06/16/19 09:28 Aspirin PER TUBE 325 mg DAILY DWIGHT Administration Atenolol 25 mg 06/13/19 09:00 06/16/19 09:28 Tenormin PER TUBE 25 mg DAILY DWIGHT Administration Carbidopa/Levodopa 1.5 tab 06/11/19 09:00 06/16/19 15:36 Sinemet Cr 50/200 PO 1.5 tab TID DWIGHT Administration Dexamethasone 4 mg 06/13/19 15:00 06/16/19 15:38 Decadron SLOW IVP 4 mg Q6H DWIGHT Administration Hydralazine HCl 10 mg 06/10/19 19:27 06/12/19 18:06 Apresoline SLOW IVP 10 mg Q4H PRN Administration SBP > 180 or DBP > 105 Ceftriaxone Sodium 1 gm/ 100 mls @ 200 mls/hr 06/11/19 23:00 06/16/19 00:01 Sodium Chloride IVPB 100 mls Q24HR DWIGHT Administration Vancomycin HCl 1 gm/ Device 200 mls @ 200 mls/hr 06/14/19 13:00 06/16/19 13: 39 IVPB 200 mls 0100,1300 DWIGHT Administration Levetiracetam 500 mg/ Device 100 mls @ 200 mls/hr 06/15/19 21:00 06/16/19 09: 30 IVPB 100 mls BID DWIGHT Administration Lidocaine HCl 50 ml 06/12/19 09:00 06/16/19 09:31 Xylocaine 4% Topical Sheree TOP Not Given DAILY [facility] Rivaroxaban 20 mg 06/14/19 17:00 06/16/19 17:38 Xarelto PO 20 mg 1700 DWIGHT Administration Sodium Bicarbonate 650 mg 06/13/19 15:42 06/13/19 17:15 Bicarbonate, Sodium PER TUBE 650 mg .PER PROTOCOL PRN Administration ENTERAL TUBE OCCLUSION - Exam General Appearance: NAD General - other findings: lethargic, opens eyes briefly to name Eye: PERRL, anicteric sclera ENT: normocephalic atraumatic, no oropharyngeal lesions Neck: supple, symmetric, no JVD, no thyromegaly Heart: no gallops, no rubs, normal peripheral pulses, irregular Respiratory: CTAB, no wheezes, no rales, no ronchi Gastrointestinal: soft, non-tender, non-distended, normal bowel sounds Extremities: no cyanosis, no clubbing Skin: normal turgor, no lesions Neurological - other findings: aphasic, dysphagia, R hemiparesis Psychiatric: oriented to person Hosp A/P (1) 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 Code(s): I63.412 - CEREB INFRC DUE TO EMBOLISM OF LEFT MIDDLE CEREBRAL ARTERY Status: Acute Plan: Continue general stroke protocol, repeat CT brain in am, continue Dexamethasone , ASA, Xarelto (2) Aphasia Code(s): R47.01 - APHASIA Status: Acute 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, 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 (3) Dysphagia Code(s): R13.10 - DYSPHAGIA, UNSPECIFIED Status: Acute Qualifiers: Dysphagia type: oropharyngeal phase Qualified Code(s): R13.12 - Dysphagia, oropharyngeal phase Plan: Continue NPO, TF's, 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 (4) Cellulitis of right lower extremity Code(s): L03.115 - CELLULITIS OF RIGHT LOWER LIMB Status: Acute Plan: Continue Vancomycin/Rocephin (5) Chronic anticoagulation Code(s): Z79.01 - PROTECTION ANALYST (CURRENT) USE OF ANTICOAGULANTS Status: Chronic - Plan plan discussed w/ family, continue antibiotics, PT/OT, director of social media marketing, speech therapy, DVT proph w/SCDs Continue supportive mgmt Continue ASA daily Resume Xarelto today Completed Mannitol infusion Trial Dexamethasone 4mg IV q6h Start Keppra 500mg IV BID Nutritional support with TF's CT Brain in am AM lab: BMP
[2019-06-16] MEDS: Pantoprazole 40 MG VIAL IVP SCH (22:23)
[2019-06-17 00:23] LABS: Vancomycin, Trough 16.4 ug/mL
[2019-06-17] MEDS: cefTRIAXone\\ROCEPHIN 1 GM in Sodium Chloride 0.9% 100 ML IVPB SCH ×2 (00:44→22:15)
[2019-06-17] MEDS: Vancomycin HCl 1 GM in Premix Bag 1 BAG IVPB SCH ×2 (00:45→13:31)
[2019-06-17] MEDS: Dexamethasone 4 mg/ml Vial SLOW IVP SCH ×4 (03:39→21:23)
[2019-06-17 05:19] LABS: Hemoglobin 13.2 g/dL (12.0-16.0); Platelet Count 521 thou/uL (130-400)
--- NOTE | 2019-06-17 09:23 | CT ---
CT head noncontrast HISTORY: CVA. Follow-up. COMPARISON: 06/14/2019. FINDINGS: Very large area of cytotoxic edema involving the left frontal and temporal lobes in the dis tribution of the middle cerebral artery is again demonstrated. There is extension through the left upper periventricular white matter. The edema, resulting in approximately 0.4 cm rightward shift of t he septum pellucidum is unchanged in appearance. No evidence of hemorrhage. Diffuse cortical atrophy is also stable. Nasogastric tube partially visualized. IMPRESSION: Stable CT appearance of the cytotoxic edema and developing encephalomalacia of the large left MCA infarct. No new abnormalities are demonstrated.
[2019-06-17] MEDS: Aspirin 325 MG TAB PER TUBE SCH (11:00)
[2019-06-17] MEDS: Atenolol 50 MG TAB PER TUBE SCH (11:00)
[2019-06-17] MEDS ORDERED: Magnesium Citrate 300 ML BOT PO SCH (12:00)
[2019-06-17] MEDS: Lidocaine 4% Topical Sol 50 ML BOT TOP SCH (12:34)
[2019-06-17] MEDS: Acetaminophen 650 MG/20.3 ML UDCUP PER TUBE SCH (13:17)
[2019-06-17] MEDS ORDERED: Senokot S 8.6-50 MG TAB PER TUBE SCH (14:00)
[2019-06-17] MEDS: Rivaroxaban 10 MG TAB PO SCH (16:34)
--- NOTE | 2019-06-17 17:40 | PDOC.HOSPP ---
- Subjective Encounter Date: 06/17/19 Encounter Time: 15:15 Subjective: f/u for L MCA distribution CVA, remains aphasic, opens eyes briefly, apneic spells noted. Receiving TF's with Glucerna. - Objective Vital Signs & Weight: Vital Signs (12 hours) Temp Pulse Resp BP BP BP Pulse Ox 06/17/19 16:00 97.8 F 76 17 160/81 H 95 06/17/19 14:57 160/81 H 06/17/19 11:47 98.3 F 76 16 168/94 H 99 06/17/19 11:43 95 06/17/19 11:00 73 166/72 H 06/17/19 08:05 95 06/17/19 07:36 97.9 F 73 19 166/92 H 95 Weight Admit Weight 119 lb Weight 119 lb 11.376 oz Most Recent Monitor Data Heart Rate from ECG 87 NIBP 142/93 NIBP BP-Mean 109 Respiration from ECG 23 SpO2 98 I&O: 06/16/19 06/17/19 06/18/19 06:59 06:59 06:59 Intake Total 1602 3216 70 Output Total 1050 1050 Balance 552 2166 70 Result Diagrams: 06/17/19 04:49 06/16/19 04:17 Additional Labs: Microbiology 06/10/19 21:21 Venous blood - Right Hand Blood Culture - Preliminary NO GROWTH AT 48 HOURS 06/10/19 21:10 Venous blood - Left Arm Blood Culture - Preliminary NO GROWTH AT 48 HOURS 06/10/19 21:01 Leg - Right Bacterial Culture - Preliminary Laboratory Tests 06/10/19 06/10/19 06/11/19 21:10 21:10 03:00 WBC 17.2 H 11.9 H Sodium 137 Potassium Serum Osmolality Magnesium Vancomycin Trough 06/11/19 06/11/19 06/12/19 03:30 23:13 05:25 WBC Sodium 135 L 131 L Potassium Serum Osmolality Magnesium 1.7 Vancomycin Trough 8.0 06/12/19 06/13/19 06/13/19 05:25 04:22 04:22 WBC 14.9 H Sodium 130 L Potassium 3.4 L Serum Osmolality 273 L Magnesium Vancomycin Trough 06/14/19 06/14/19 00:18 05:01 WBC Sodium Potassium Serum Osmolality 291 Magnesium Vancomycin Trough 6.3 Radiology Reviewed by me: Yes (CT brain - persistent extensive edema) EKG Reviewed by me: Yes (Tele - A-fib) Hospitalist ROS - Medication Medications: Active Medications Generic Name Dose Route Start Last Admin Trade Name Freq PRN Reason Stop Dose Admin Acetaminophen 650 mg 06/11/19 20:56 06/14/19 00:00 Tylenol [place] 650 mg Q4H PRN Administration Headache/Fever/MILD Pain 1-3 Acetaminophen 650 mg 06/13/19 09:00 06/17/19 13:17 Tylenol Elixir PER TUBE Not Given DAILY [facility]GI[facility] Lipase/Protease/Amylase 1 cap 06/13/19 15:42 06/13/19 17:16 Garcia Martin [id number] FS 1 cap .PER PROTOCOL PRN Administration TUBE OCCLUSION PROTOCOL Aspirin 325 mg 06/13/19 09:00 06/17/19 11:00 Aspirin PER TUBE 325 mg DAILY DWIGHT Administration Atenolol 25 mg 06/13/19 09:00 06/17/19 11:00 Tenormin PER TUBE 25 mg DAILY DWIGHT Administration Dexamethasone 4 mg 06/13/19 15:00 06/17/19 16:34 Decadron SLOW IVP 4 mg Q6H DWIGHT Administration Hydralazine HCl 10 mg 06/10/19 19:27 06/12/19 18:06 Apresoline SLOW IVP 10 mg Q4H PRN Administration SBP > 180 or DBP > 105 Ceftriaxone Sodium 1 gm/ 100 mls @ 200 mls/hr 06/11/19 23:00 06/17/19 00:44 Sodium Chloride IVPB 100 mls Q24HR DWIGHT Administration Vancomycin HCl 1 gm/ Device 200 mls @ 200 mls/hr 06/14/19 13:00 06/17/19 13: 31 IVPB 200 mls 0100,1300 DWIGHT Administration Lidocaine HCl 50 ml 06/12/19 09:00 06/17/19 12:34 Xylocaine 4% Topical Sheree TOP Not Given DAILY [facility] Pantoprazole Sodium 40 mg 06/16/19 21:00 06/16/19 22:23 Protonix IVP 40 mg HS DWIGHT Administration Rivaroxaban 20 mg 06/14/19 17:00 06/17/19 16:34 Xarelto PO 20 mg 1700 DWIGHT Administration Sodium Bicarbonate 650 mg 06/13/19 15:42 06/13/19 17:15 Bicarbonate, Sodium PER TUBE 650 mg .PER PROTOCOL PRN Administration ENTERAL TUBE OCCLUSION - Exam General - other findings: somnolent, aphasic, does not open eyes to name Eye: anicteric sclera ENT: normocephalic atraumatic, no oropharyngeal lesions ENT - other findings: Dobhoff in place Neck: supple, symmetric, no JVD, no thyromegaly Heart: no gallops, no rubs, normal peripheral pulses, irregular Respiratory: CTAB, no wheezes, no rales, no ronchi Gastrointestinal: soft, non-tender, non-distended, normal bowel sounds Extremities: no cyanosis, no edema Skin: normal turgor, no lesions Neurological - other findings: aphasic, dysphagia, R-hemiparesis Psychiatric: somnolent, lethargic Hosp A/P (1) 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 Code(s): I63.412 - CEREB INFRC DUE TO EMBOLISM OF LEFT MIDDLE CEREBRAL ARTERY Status: Acute 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 edema and encephalomalacia, poor prognosis, general stroke protocol, ASA (2) Aphasia Code(s): R47.01 - APHASIA Status: Acute (3) Dysphagia Code(s): R13.10 - DYSPHAGIA, UNSPECIFIED Status: Acute Qualifiers: Dysphagia type: oropharyngeal phase Qualified Code(s): R13.12 - Dysphagia, oropharyngeal phase (4) Cellulitis of right lower extremity Code(s): L03.115 - CELLULITIS OF RIGHT LOWER LIMB Status: Acute (5) Chronic anticoagulation Code(s): Z79.01 - 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
[2019-06-17] MEDS: levETIRAcetam 500 mg/5 ml Oral Solution PER TUBE SCH (21:23)
[2019-06-17] MEDS: Pantoprazole 40 MG VIAL IVP SCH (21:23)
[2019-06-17] MEDS: Senokot S 8.6-50 MG TAB PER TUBE SCH (21:26)
[2019-06-17] MEDS: hydrALAZINE 20 MG/ML VIAL SLOW IVP PRN (21:45)
[2019-06-18] MEDS: Vancomycin HCl 1 GM in Premix Bag 1 BAG IVPB SCH ×2 (00:23→14:01)
--- NOTE | 2019-06-18 09:53 | PDOC.HOSPP ---
- Subjective Encounter Date: 06/18/19 Encounter Time: 09:35 Subjective: f/u for L MCA territorial infarct with extensive edema. Remains somnolent, minimally responsive receiving TF's. - Objective Vital Signs & Weight: Vital Signs (12 hours) Temp Pulse Resp BP Pulse Ox 06/18/19 07:42 98.3 F 78 20 155/95 H 94 L 06/18/19 04:00 96.8 F L 75 20 171/95 H 96 06/18/19 00:00 97.3 F L 72 16 143/86 H 95 06/17/19 22:14 65 141/81 H Weight Admit Weight 119 lb Weight 119 lb 11.376 oz Most Recent Monitor Data Heart Rate from ECG 87 NIBP 142/93 NIBP BP-Mean 109 Respiration from ECG 23 SpO2 98 I&O: 06/17/19 06/18/19 06/19/19 06:59 06:59 06:59 Intake Total 3216 1780 Output Total 1050 1650 Balance 2166 130 Result Diagrams: 06/17/19 04:49 06/16/19 04:17 Additional Labs: Accuchecks 06/18/19 06:30 POC Glucose 181 H Microbiology 06/10/19 21:21 Venous blood - Right Hand Blood Culture - Preliminary NO GROWTH AT 48 HOURS 06/10/19 21:10 Venous blood - Left Arm Blood Culture - Preliminary NO GROWTH AT 48 HOURS 06/10/19 21:01 Leg - Right Bacterial Culture - Preliminary Laboratory Tests 06/10/19 06/10/19 06/11/19 21:10 21:10 03:00 WBC 17.2 H 11.9 H Sodium 137 Potassium Serum Osmolality Magnesium Vancomycin Trough 06/11/19 06/11/19 06/12/19 03:30 23:13 05:25 WBC Sodium 135 L 131 L Potassium Serum Osmolality Magnesium 1.7 Vancomycin Trough 8.0 06/12/19 06/13/19 06/13/19 05:25 04:22 04:22 WBC 14.9 H Sodium 130 L Potassium 3.4 L Serum Osmolality 273 L Magnesium Vancomycin Trough 06/14/19 06/14/19 00:18 05:01 WBC Sodium Potassium Serum Osmolality 291 Magnesium Vancomycin Trough 6.3 EKG Reviewed by me: Yes (Tele - A-fib) Hospitalist ROS - Medication Medications: Active Medications Generic Name Dose Route Start Last Admin Trade Name Freq PRN Reason Stop Dose Admin Acetaminophen 650 mg 06/11/19 20:56 06/14/19 00:00 Tylenol HI 650 mg Q4H PRN Administration Headache/Fever/MILD Pain 1-3 Acetaminophen 650 mg 06/13/19 09:00 06/17/19 13:17 Tylenol Elixir PER TUBE Not Given DAILY [facility] Lipase/Protease/Amylase 1 cap 06/13/19 15:42 06/13/19 17:16 Garcia Martin [id number] FS 1 cap .PER PROTOCOL PRN Administration TUBE OCCLUSION PROTOCOL Aspirin 325 mg 06/13/19 09:00 06/17/19 11:00 Aspirin PER TUBE 325 mg DAILY DWIGHT Administration Atenolol 25 mg 06/13/19 09:00 06/17/19 11:00 Tenormin PER TUBE 25 mg DAILY DWIGHT Administration Dexamethasone 4 mg 06/17/19 21:00 06/17/19 21:23 Decadron SLOW IVP 4 mg BID DWIGHT Administration Hydralazine HCl 10 mg 06/10/19 19:27 06/17/19 21:45 Apresoline SLOW IVP 10 mg Q4H PRN Administration SBP > 180 or DBP > 105 Ceftriaxone Sodium 1 gm/ 100 mls @ 200 mls/hr 06/11/19 23:00 06/17/19 22:15 Sodium Chloride IVPB 100 mls Q24HR DWIGHT Administration Vancomycin HCl 1 gm/ Device 200 mls @ 200 mls/hr 06/14/19 13:00 06/18/19 00: 23 IVPB 200 mls 0100,1300 DWIGHT Administration Levetiracetam 500 mg 06/17/19 21:00 06/17/19 21:23 Keppra Oral Solution PER TUBE 500 mg BID DWIGHT Administration Lidocaine HCl 50 ml 06/12/19 09:00 06/17/19 12:34 Xylocaine 4% Topical Sheree TOP Not Given DAILY [facility] Pantoprazole Sodium 40 mg 06/16/19 21:00 06/17/19 21:23 Protonix IVP 40 mg HS DWIGHT Administration Rivaroxaban 20 mg 06/14/19 17:00 06/17/19 16:34 Xarelto PO 20 mg 1700 DWIGHT Administration Senna/Docusate Sodium 1 tab 06/17/19 21:00 06/17/19 21:26 Senokot S PER TUBE Not Given BID [facility] Sodium Bicarbonate 650 mg 06/13/19 15:42 06/13/19 17:15 Bicarbonate, Sodium PER TUBE 650 mg .PER PROTOCOL PRN Administration ENTERAL TUBE OCCLUSION - Exam General Appearance: ill appearing General - other findings: opens eyes briefly to name ENT: normocephalic atraumatic, no oropharyngeal lesions ENT - other findings: Dobhoff FT in place Neck: supple, symmetric, no JVD, no thyromegaly Heart: no gallops, no rubs, normal peripheral pulses, irregular Respiratory: no wheezes Respiratory - other findings: occasional rhonchi Gastrointestinal: soft, non-tender, non-distended, normal bowel sounds Extremities: no cyanosis, no clubbing Skin: normal turgor, no lesions Neurological: no new deficit Neurological - other findings: R hemiparesis, dysphagia, aphasia Hosp A/P (1) 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 Code(s): I63.412 - CEREB INFRC DUE TO EMBOLISM OF LEFT MIDDLE CEREBRAL ARTERY Status: Acute Plan: Supportive mgmt, ASA, general stroke protocol, extensive edema remains and likely will not improve (2) Aphasia Code(s): R47.01 - APHASIA Status: Acute (3) Apnea for greater than 15 seconds Code(s): R06.81 - APNEA, NOT ELSEWHERE CLASSIFIED Status: Acute Plan: Variable apnea episodes with spontaneous recovery, secondary to cerebral edema and CVA (4) Dysphagia Code(s): R13.10 - DYSPHAGIA, UNSPECIFIED Status: Acute Qualifiers: Dysphagia type: oropharyngeal phase Qualified Code(s): R13.12 - Dysphagia, oropharyngeal phase (5) Cellulitis of right lower extremity Code(s): L03.115 - CELLULITIS OF RIGHT LOWER LIMB Status: Acute (6) Chronic anticoagulation Code(s): Z79.01 - SENIOR LIVING (CURRENT) USE OF ANTICOAGULANTS Status: Chronic - Plan plan discussed w/ family, continue antibiotics, PT/OT, social worker assistant, speech therapy, DVT proph w/SCDs Continue supportive mgmt Continue ASA daily Resume Xarelto Completed Mannitol infusion Dexamethasone 4mg BID Nutritional support with TF's Discussed PEG vs no PEG with daughter, family to discuss and weight options Poor prognosis overall
[2019-06-18] MEDS: Senokot S 8.6-50 MG TAB PER TUBE SCH ×2 (10:01→20:22)
[2019-06-18] MEDS: levETIRAcetam 500 mg/5 ml Oral Solution PER TUBE SCH ×2 (10:02→20:22)
[2019-06-18] MEDS: Aspirin 325 MG TAB PER TUBE SCH (10:02)
[2019-06-18] MEDS: Acetaminophen 650 MG/20.3 ML UDCUP PER TUBE SCH (10:02)
[2019-06-18] MEDS: Atenolol 50 MG TAB PER TUBE SCH (10:03)
[2019-06-18] MEDS: Dexamethasone 4 mg/ml Vial SLOW IVP SCH ×2 (10:18→20:22)
[2019-06-18] MEDS: Lidocaine 4% Topical Sol 50 ML BOT TOP SCH (10:19)
[2019-06-18 13:06] LABS: Vancomycin, Trough 17.9 ug/mL
[2019-06-18] MEDS: Rivaroxaban 10 MG TAB PO SCH (18:35)
[2019-06-18] MEDS: Pantoprazole 40 MG VIAL IVP SCH (20:22)
[2019-06-18] MEDS: cefTRIAXone\\ROCEPHIN 1 GM in Sodium Chloride 0.9% 100 ML IVPB SCH (22:33)
[2019-06-19] MEDS: Vancomycin HCl 1 GM in Premix Bag 1 BAG IVPB SCH ×2 (01:04→12:57)
[2019-06-19 04:50] LABS: Hemoglobin 14.3 g/dL (12.0-16.0); Platelet Count 499 thou/uL (130-400)
[2019-06-19] MEDS: Acetaminophen 650 MG/20.3 ML UDCUP PER TUBE SCH (09:39)
[2019-06-19] MEDS: Atenolol 50 MG TAB PER TUBE SCH (09:39)
[2019-06-19] MEDS: levETIRAcetam 500 mg/5 ml Oral Solution PER TUBE SCH ×2 (09:39→21:00)
[2019-06-19] MEDS: Dexamethasone 4 mg/ml Vial SLOW IVP SCH ×2 (09:40→21:01)
[2019-06-19] MEDS: Aspirin 325 MG TAB PER TUBE SCH (09:40)
[2019-06-19] MEDS: Senokot S 8.6-50 MG TAB PER TUBE SCH (09:40)
[2019-06-19] MEDS: Pancrelipase DR 12000 1 CAP FS PRN ×2 (09:47→13:14)
[2019-06-19] MEDS: Sodium Bicarbonate Tab 325 MG TAB PER TUBE PRN ×2 (09:47→13:14)
[2019-06-19] MEDS: Lidocaine 4% Topical Sol 50 ML BOT TOP SCH (09:51)
[2019-06-19] MEDS: Carbidopa/Levodopa CR 50-200 mg Tablet FS SCH ×2 (15:14→21:00)
--- NOTE | 2019-06-19 16:01 | PDOC.HOSPP ---
- Subjective Encounter Date: 06/19/19 Encounter Time: 16:00 Subjective: f/u for large L MCA territorial infarct with extensive edema and now encephalomalacia. Family stating pt sat in bed with assist. Remains on TF's, + BM's. Family wishing to pursue PEG tube placement. - Objective Vital Signs & Weight: Vital Signs (12 hours) Temp Pulse Resp BP BP Pulse Ox 06/19/19 12:15 97.5 F L 71 20 166/81 H 98 06/19/19 09:39 75 151/85 H 06/19/19 09:36 98 06/19/19 07:58 97.7 F 75 18 151/85 H 98 Weight Admit Weight 119 lb Weight 119 lb 11.376 oz Most Recent Monitor Data Heart Rate from ECG 87 NIBP 142/93 NIBP BP-Mean 109 Respiration from ECG 23 SpO2 98 I&O: 06/18/19 06/19/19 06/20/19 06:59 06:59 06:59 Intake Total 1780 1532 Output Total 1650 1050 Balance 130 482 Result Diagrams: 06/19/19 04:36 06/16/19 04:17 Additional Labs: Accuchecks 06/19/19 06/19/19 06/18/19 10:30 05:56 20:20 POC Glucose 138 H 155 H 149 H Microbiology 06/10/19 21:21 Venous blood - Right Hand Blood Culture - Preliminary NO GROWTH AT 48 HOURS 06/10/19 21:10 Venous blood - Left Arm Blood Culture - Preliminary NO GROWTH AT 48 HOURS 06/10/19 21:01 Leg - Right Bacterial Culture - Preliminary Laboratory Tests 06/10/19 06/10/19 06/11/19 21:10 21:10 03:00 WBC 17.2 H 11.9 H Sodium 137 Potassium Serum Osmolality Magnesium Vancomycin Trough 06/11/19 06/11/19 06/12/19 03:30 23:13 05:25 WBC Sodium 135 L 131 L Potassium Serum Osmolality Magnesium 1.7 Vancomycin Trough 8.0 06/12/19 06/13/19 06/13/19 05:25 04:22 04:22 WBC 14.9 H Sodium 130 L Potassium 3.4 L Serum Osmolality 273 L Magnesium Vancomycin Trough 06/14/19 06/14/19 00:18 05:01 WBC Sodium Potassium Serum Osmolality 291 Magnesium Vancomycin Trough 6.3 EKG Reviewed by me: Yes (Tele - A-fib) Hospitalist ROS - Medication Medications: Active Medications Generic Name Dose Route Start Last Admin Trade Name Aletha PRN Reason Stop Dose Admin Acetaminophen 650 mg 06/11/19 20:56 06/14/19 00:00 Tylenol [place] 650 mg Q4H PRN Administration Headache/Fever/MILD Pain 1-3 Acetaminophen 650 mg 06/13/19 09:00 06/19/19 09:39 Tylenol Elixir PER TUBE 650 mg DAILY DWIGHT Administration Lipase/Protease/Amylase 1 cap 06/13/19 15:42 06/19/19 13:14 Creon [id number] FS 1 cap .PER PROTOCOL PRN Administration TUBE OCCLUSION PROTOCOL Aspirin 325 mg 06/13/19 09:00 06/19/19 09:40 Aspirin PER TUBE 325 mg DAILY DWIGHT Administration Atenolol 25 mg 06/13/19 09:00 06/19/19 09:39 Tenormin PER TUBE 25 mg DAILY DWIGHT Administration Carbidopa/Levodopa 1.5 tab 06/19/19 15:00 06/19/19 15:14 Sinemet Cr 50/200 FS 1.5 tab TID DWIGHT Administration Dexamethasone 4 mg 06/17/19 21:00 06/19/19 09:40 Decadron SLOW IVP 4 mg BID DWIGHT Administration Hydralazine HCl 10 mg 06/10/19 19:27 06/17/19 21:45 Apresoline SLOW IVP 10 mg Q4H PRN Administration SBP > 180 or DBP > 105 Ceftriaxone Sodium 1 gm/ 100 mls @ 200 mls/hr 06/11/19 23:00 06/18/19 22:33 Sodium Chloride IVPB 100 mls Q24HR DWIGHT Administration Vancomycin HCl 1 gm/ Device 200 mls @ 200 mls/hr 06/14/19 13:00 06/19/19 12: 57 IVPB 200 mls 0100,1300 DWIGHT Administration Levetiracetam 500 mg 06/17/19 21:00 06/19/19 09:39 Keppra Oral Solution PER TUBE 500 mg BID DWIGHT Administration Lidocaine HCl 50 ml 06/12/19 09:00 06/19/19 09:51 Xylocaine 4% Topical Sheree TOP Not Given DAILY DWIGHT Pantoprazole Sodium 40 mg 06/16/19 21:00 02/06/20 20:22 Protonix IVP 40 mg HS DWIGHT Administration Senna/Docusate Sodium 1 tab 06/17/19 21:00 06/19/19 09:40 Senokot S PER TUBE Not Given BID DWIGHT Sodium Bicarbonate 650 mg 06/13/19 15:42 06/19/19 13:14 Bicarbonate, Sodium PER TUBE 650 mg .PER PROTOCOL PRN Administration ENTERAL TUBE OCCLUSION - Exam General Appearance: ill appearing General - other findings: somnolent, opens eyes briefly ENT: normocephalic atraumatic, no oropharyngeal lesions ENT - other findings: Dobhoff in place in nares Neck: supple, symmetric, no JVD Heart: no gallops, no rubs, normal peripheral pulses, irregular Respiratory: CTAB, no rales, no ronchi Respiratory - other findings: apneic episodes noted Gastrointestinal: soft, non-tender, non-distended, normal bowel sounds Extremities: no cyanosis, no clubbing, no edema Skin: normal turgor Neurological: no new deficit Neurological - other findings: aphasic, dysphagia, R hemiparesis Musculoskeletal: generalized weakness Hosp A/P (1) 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 Code(s): I63.412 - CEREB INFRC DUE TO EMBOLISM OF LEFT MIDDLE CEREBRAL ARTERY Status: Acute Plan: Continue general stroke protocol, poor prognosis given the extensive edema and magnitude, family wishing to pursue PEG tube placement (2) Aphasia Code(s): R47.01 - APHASIA Status: Acute (3) Apnea for greater than 15 seconds Code(s): R06.81 - APNEA, NOT ELSEWHERE CLASSIFIED Status: Acute Plan: Intermittent apnea noted, anticipate this will become more frequent (4) Dysphagia Code(s): R13.10 - DYSPHAGIA, UNSPECIFIED Status: Acute Qualifiers: Dysphagia type: oropharyngeal phase Qualified Code(s): R13.12 - Dysphagia, oropharyngeal phase Plan: Family wishing to pursue PEG placement, GI consult pending (5) Cellulitis of right lower extremity Code(s): L03.115 - CELLULITIS OF RIGHT LOWER LIMB Status: Acute (6) Chronic anticoagulation Code(s): Z79.01 - 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
[2019-06-19] MEDS: Pantoprazole 40 MG VIAL IVP SCH (21:02)
[2019-06-19] MEDS: cefTRIAXone\\ROCEPHIN 1 GM in Sodium Chloride 0.9% 100 ML IVPB SCH (22:45)
[2019-06-20] MEDS: Vancomycin HCl 1 GM in Premix Bag 1 BAG IVPB SCH ×2 (00:15→12:50)
--- NOTE | 2019-06-20 03:54 | CON ---
DATE OF CONSULTATION: 06/19/2019 REASON FOR CONSULTATION: Oropharyngeal dysphagia with probable aspiration in light of recent CVA. CONSULTING PROVIDER: Dr. Matthew Bennett. HISTORY OF PRESENT ILLNESS: The patient is an 84-year-old female with past medical history of hypertension, coronary artery disease, atrial fibrillation, osteoarthritis, and osteoporosis, who was initially admitted to the hospital with complaints of possible stroke. Per chart review, the patient was scheduled to undergo an elective outpatient procedure and has stopped her Xarelto for approximately 2 days prior to when she developed the acute onset of facial droop, aphagia, and altered mental status, which prompted to seek healthcare assistance. On evaluation in the ER, the CT scan was negative for hemorrhage, but CT angiography revealed significant clot within the MCA territory prompting transfer the patient from [facility] to [facility]. There, the patient underwent a ALONDRA procedure which was ultimately not successful. Subsequently, the patient was transferred to the ICU for further management and care related to other medical comorbidities and during the course of this hospitalization had been downgraded to regular bed on the stroke floor with physical therapy providing assistance. Upon review of the progress notes over the last week, the patient has made very little progress in terms of meaningful or purposeful movements and has exhibited multiple apneic episodes per nursing staff, hospital service, and the patient's family, where she would have these episodes ranging between 20 and 50 seconds in duration. Speech pathology evaluation of the patient was deemed to be unsafe due to the patient's inability to adequate follow instructions and is currently aphasic and not able to follow any instructions at this point with the inability to maintain her own nutrition and probable oropharyngeal dysphagia. The recommendation for possible PEG tube placement was made with the family discussing this modality for further nutritional purposes in the future. I spoke with the patient's medical [id number] (Gerard Vanegas) and had a very juan conversation with her about her mother's current clinical condition and the risks and benefits of percutaneous gastrostomy tube placement. At this time, she would like to confer a family meeting for discussion of this potential modality given her mother's current clinical situation, and her wishes regarding long-term full care. REVIEW OF SYSTEMS: A 10-category review of systems could not be obtained due to the patient's altered mental status and aphasic status. PAST MEDICAL HISTORY: As per HPI. PAST SURGICAL HISTORY: Left carpal tunnel release, right oophorectomy, appendectomy, cataract surgery to the left eye, left TKA, left shoulder surgery, and ORIF of the left olecranon. FAMILY HISTORY: No mention of any GI malignancies. SOCIAL HISTORY: No mention of any tobacco, alcohol, or illicit drug use. OUTPATIENT MEDICATIONS: Reviewed. ALLERGIES: TETRACYCLINE. PHYSICAL EXAMINATION: VITAL SIGNS: Temperature 97.3, pulse 93, blood pressure 111/71, respiratory rate 20, and saturating 98% on room air. GENERAL: The patient was lying in bed, in no acute distress. The patient was awake, but not alert, and did not respond to verbal or tactile stimuli, although she did respond to noxious stimuli by turning towards that particular stimuli. HEENT: Normocephalic and atraumatic. NECK: Supple. No JVD or scleral icterus noted. CARDIOVASCULAR: Regular rate and rhythm with no discernible murmurs, gallops, or rubs. RESPIRATORY: Clear to auscultation bilaterally with no discernible wheezes or rales. ABDOMEN: Normoactive bowel sounds. Soft, nondistended. No grimacing to palpation. EXTREMITIES: No cyanosis, clubbing, or edema. LABORATORY DATA: CBC with a hemoglobin of 14.3, hematocrit 45.1, and platelets 499. Chemistry not available for review. IMAGING DATA: The patient underwent CT of the brain on June 11, which showed an acute large left MCA infarct with resultant edema. Repeat studies of the brain throughout the course of the week with the most recent CT brain showing stable appearance of the cytotoxic edema and developing encephalomalacia of the large left MCA infarct. No new abnormalities were demonstrated. There was also an approximately 0.4 cm rightward shift of the septum pellucidum, also unchanged in appearance. ASSESSMENT AND PLAN: The patient is an 84-year-old female with past medical history of hypertension, coronary artery disease, atrial fibrillation, osteoarthritis, and osteoporosis, presenting with acute infarct of the left middle cerebral artery resulting in significant deficits including inability to care for oneself and oropharyngeal dysphagia. Oropharyngeal dysphagia. The patient presented to the hospital with a left-sided facial droop, aphasia, and altered mental status concerning for possible stroke. She subsequently underwent CT scan shortly after admission, which did not show any evidence of hemorrhage, but CT angiography revealed a clot within the M1 distribution. Attempts to remove the clot were ultimately unsuccessful. Over the course of this last week, she has had no significant change in her imaging findings, all consistent with a large left middle cerebral artery infarction and resulted cytotoxic edema and shift of the septum pellucidum. From a functional standpoint, the patient is now exhibiting no purposeful movements, but will instead respond only to noxious stimuli per physical examination by me. Physical therapy has been working with the patient during the course of hospitalization as well, and there may have been some improvement with the patient propping herself up today but otherwise has been unable to adequately participate [facility]. Upon conversation with the patient's medical [id number], there is some confusion/reluctance to proceed with percutaneous gastrostomy tube placement and in this patient, I think this is reasonable based on current studies with patients in similar conditions, the likelihood of meaningful recovery is very small with an overall prognosis portended with the introduction of a percutaneous gastrostomy tube, the literature shows that it does not necessarily increase longevity or functionality and while it may decrease her risk of aspiration and does not decrease risk of aspiration 100%. Given her ultimately poor prognosis, the placement of a percutaneous gastrostomy tube may also be considered futile, unless it was in line with the patient's wishes to undergo full care, despite her neurological status. Upon discussing these things with the patient's medical [id number], she would like to proceed with the family meeting tomorrow for discussion of these issues and ultimately decide whether or not a gastrostomy tube placement would be in line with the patient's wishes. RECOMMENDATIONS: 1. We will proceed with family meeting tomorrow for discussion of percutaneous gastrostomy tube placement in this patient including risks and benefits. 2. We will continue with Dobhoff tube nutritional feeds for now. 3. Continue with current physical therapy as part of stroke protocol. 4. Would avoid any anticoagulation for the time being in case the patient needs the gastrostomy tube placement. We will continue to follow. Please call with any questions. Job ID: [id number]
[2019-06-20] MEDS ORDERED: Ketamine 50 MG/ML (10ML VIAL) ONE (07:43)
[2019-06-20] MEDS: Atenolol 50 MG TAB PER TUBE SCH (09:55)
[2019-06-20] MEDS: Acetaminophen 650 MG/20.3 ML UDCUP PER TUBE SCH (09:55)
[2019-06-20] MEDS: levETIRAcetam 500 mg/5 ml Oral Solution PER TUBE SCH ×2 (09:55→21:13)
[2019-06-20] MEDS: Carbidopa/Levodopa CR 50-200 mg Tablet FS SCH ×3 (09:56→21:13)
[2019-06-20] MEDS: Aspirin 325 MG TAB PER TUBE SCH (09:57)
[2019-06-20] MEDS: Dexamethasone 4 mg/ml Vial SLOW IVP SCH ×2 (09:57→21:13)
[2019-06-20] MEDS: Lidocaine 4% Topical Sol 50 ML BOT TOP SCH (11:55)
[2019-06-20] MEDS: Rivaroxaban 10 MG TAB PO SCH (16:35)
--- NOTE | 2019-06-20 17:04 | PDOC.HOSPP ---
- Subjective Encounter Date: 06/20/19 Encounter Time: 10:40 (\) Subjective: pt sleeping, mouth breather, TF/ IVF running at 65ml/hr., CVA w.. MCA territory. - Objective Vital Signs & Weight: Vital Signs (12 hours) Temp Pulse Resp BP BP Pulse Ox 06/20/19 16:00 98.3 F 80 16 128/85 97 06/20/19 11:51 97.7 F 74 20 152/82 H 97 06/20/19 09:55 88 151/85 H 06/20/19 08:00 98.2 F 88 20 151/85 H 97 Weight Admit Weight 119 lb Weight 119 lb 11.376 oz Most Recent Monitor Data Heart Rate from ECG 87 NIBP 142/93 NIBP BP-Mean 109 Respiration from ECG 23 SpO2 98 I&O: 06/19/19 06/20/19 06/21/19 06:59 06:59 06:59 Intake Total 1532 2850 70 Output Total 1050 Balance 482 2850 70 Result Diagrams: 06/19/19 04:36 06/16/19 04:17 Additional Labs: Accuchecks 06/20/19 06/20/19 06/20/19 16:39 11:58 05:39 POC Glucose 155 H 127 H 136 H 06/19/19 06/19/19 21:16 16:56 POC Glucose 143 H 164 H Hospitalist ROS - Medication Medications: Active Medications Generic Name Dose Route Start Last Admin Trade Name Freq PRN Reason Stop Dose Admin Acetaminophen 650 mg 06/11/19 20:56 06/14/19 00:00 Tylenol [place] 650 mg Q4H PRN Administration Headache/Fever/MILD Pain 1-3 Acetaminophen 650 mg 06/13/19 09:00 06/20/19 09:55 Tylenol Elixir PER TUBE 650 mg DAILY DWIGHT Administration Lipase/Protease/Amylase 1 cap 06/13/19 15:42 06/19/19 13:14 Garcia Martin [id number] FS 1 cap .PER PROTOCOL PRN Administration TUBE OCCLUSION PROTOCOL Aspirin 325 mg 06/13/19 09:00 06/20/19 09:57 Aspirin PER TUBE 325 mg DAILY DWIGHT Administration Atenolol 25 mg 06/13/19 09:00 06/20/19 09:55 Tenormin PER TUBE 25 mg DAILY DWIGHT Administration Carbidopa/Levodopa 1.5 tab 06/19/19 15:00 06/20/19 16:36 Sinemet Cr 50/200 FS 1.5 tab TID DWIGHT Administration Dexamethasone 4 mg 06/17/19 21:00 06/20/19 09:57 Decadron SLOW IVP 4 mg BID DWIGHT Administration Hydralazine HCl 10 mg 06/10/19 19:27 06/17/19 21:45 Apresoline SLOW IVP 10 mg Q4H PRN Administration SBP > 180 or DBP > 105 Ceftriaxone Sodium 1 gm/ 100 mls @ 200 mls/hr 06/11/19 23:00 06/19/19 22:45 Sodium Chloride IVPB 100 mls Q24HR DWIGHT Administration Vancomycin HCl 1 gm/ Device 200 mls @ 200 mls/hr 06/14/19 13:00 06/20/19 12: 50 IVPB 200 mls 0100,1300 DWIGHT Administration Levetiracetam 500 mg 06/17/19 21:00 06/20/19 09:55 Keppra Oral Solution PER TUBE 500 mg BID DWIGHT Administration Lidocaine HCl 50 ml 06/12/19 09:00 06/20/19 11:55 Xylocaine 4% Topical Sheree TOP Not Given DAILY DWIGHT Pantoprazole Sodium 40 mg 06/16/19 21:00 06/19/19 21:02 Protonix IVP 40 mg HS DWIGHT Administration Rivaroxaban 20 mg 06/20/19 17:00 06/20/19 16:35 Xarelto PO 20 mg 1700 DWIGHT Administration Sodium Bicarbonate 650 mg 06/13/19 15:42 06/19/19 13:14 Bicarbonate, Sodium PER TUBE 650 mg .PER PROTOCOL PRN Administration ENTERAL TUBE OCCLUSION - Exam General Appearance: ill appearing Eye: PERRL, anicteric sclera ENT: normocephalic atraumatic Neck: supple, symmetric Heart: RRR Respiratory: normal chest expansion, rales, rhonchi Gastrointestinal: normal bowel sounds, no palpable masses Neurological: no new deficit Hosp A/P - Plan 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 -general stroke protocol, poor prognosis given the extensive edema and magnitude , family wishing to pursue PEG tube placement -dexa bid, ASA, -Nutritional support with TF's Completed Mannitol infusion (3) Apnea for greater than 15 seconds Intermittent apnea noted, anticipate this will become more frequent (2) Aphasia- (4) Dysphagia -GI note reviewed -MPOA will d/w rest of the family and let us know reg.. PEG. (5) Cellulitis of right lower extremity -on CTX (6) Chronic anticoagulation Code(s): Z79.01 - LONGTERM (CURRENT) USE OF ANTICOAGULANTS Status: Chronic Plan: Xarelto on hold pending PEG placement -JASWANT, Gerard Vanegas, will d/w rest of the family and let us know reg.. PEG. Poor prognosis overall.
--- NOTE | 2019-06-20 17:22 | PRG ---
DATE OF SERVICE: 06/20/2019 SUBJECTIVE: I had seen Ms. Vanegas at [facility] basically a consultation on June 10. She presented then with a history of AFib with arterial venous insufficiency in lower extremities with prior venous ablation in [address] Puente. They asked me to see her because of chronic lesions in the lower extremities. Our impression was venous insufficiency with peripheral vascular disease and prior episode of UTI with bacteremia. 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 When I saw her, she had intact cognitive function. The day after I saw her, she developed focal neurological symptoms, which was developed abruptly in the preop holding area. She was difficult to arouse and a stroke protocol was initiated. CT scan head noncontrast was negative. Angiogram showed acute thrombus in the distal segment of left middle cerebral artery. Case was discussed with Neurosurgery and she was transferred to [place]. Unfortunately, the thrombectomy procedure failed and now she is in the stroke unit at [facility]. She is obtunded. Over the past few hours or 2, she seems to have open her eyes and is more responsive, but still unable to verbalize anything, does not follow commands. She has a dense right hemiparesis. Lungs are clear. S1 and S2 regular rate. Abdomen is soft. The wound is about the same. She has some erythema in the perianal area. The areas of ulceration in the extremity as noted previously. OBJECTIVE: VITAL SIGNS: She has been afebrile during the hospital stay here in [place]. BP 128/85, pulse 80, respirations 16, and O2 sat 97. LUNGS: Clear. ABDOMEN: Soft. NEUROLOGIC: Dense right hemiparesis. Does not interact with the examiner. She will open her eyes, but does not verbalize anything. LABORATORY DATA: White cell count is up from 11 to 15.7, hemoglobin 11.4, and platelets 368. Creatinine 0.57. Two sets of blood culture, no growth. culture was with mixed skin el as expected. IMAGING STUDIES: Brain CT from 3 days ago with cytotoxic edema and developing encephalomalacia in the large left MCA infarct. 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 The family in view of the prognosis has decided for hospice care and so no further active interventions will be carried out once she is transferred to the inpatient hospice. The family would like to continue antimicrobial therapy in the mean time, possible aspiration pneumonia. The wounds in the right leg are chronic and probably related to a combination of venous and arterial insufficiency. Job ID: [id number]
--- NOTE | 2019-06-20 19:31 | PRG ---
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 SUBJECTIVE: Per nursing staff, there were no acute events or problems overnight. Today, the patient appears to be resting more comfortably. Per my discussion with Gerard Vanegas last night (one of the medical power of civil litigation attorney), she stated that she would like to discuss with her family today, the risks and benefits of placement of a percutaneous gastrostomy tube in this patient with a family meeting of both Gerard Vanegas and her sister (joint medical painter of civil litigation attorney). At this time, they would like to pursue more comfort care measures with hospice and would forego the placement of a percutaneous gastrostomy tube. OBJECTIVE: VITAL SIGNS: Temperature 98.3, pulse 80, blood pressure 128/85, respiratory rate 16, and saturating 97% on room air. GENERAL: The patient was lying in bed, in no acute distress. The patient was not alert or oriented. CARDIOVASCULAR: Regular rate and rhythm. RESPIRATORY: Clear to auscultation bilaterally. ABDOMEN: Normoactive bowel sounds. Soft, nontender, and nondistended. EXTREMITIES: No cyanosis, clubbing, or edema. LABORATORY DATA: No current studies are available for review. IMAGING DATA: No current studies are available for review. ASSESSMENT AND PLAN: The patient is an 84-year-old female with past medical history of hypertension, coronary artery disease, atrial fibrillation, osteoarthritis, and osteoporosis, presenting with an acute infarction of the left middle cerebral artery resulting in significant deficits including inability to care for herself and oropharyngeal dysphagia. 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 The patient initially presented to the hospital with left-sided facial droop, aphasia, and altered mental status with imaging at that time showing a left middle cerebral artery stroke. Attempts to remove the clot were unsuccessful. Over the last week, the patient has not made any significant improvements and consideration for percutaneous gastrostomy tube placement was made for continue nutritional purposes. However, after careful discussion with the patient's family, they feel that it is indirect violation of the patient's wishes to prolonged care and a vegetative like state. At this time per the patient's family, they would not like to proceed with the PEG tube, but would rather like to pursue hospice therapy/care. RECOMMENDATIONS: 1. Would confer with the dependency case manager for this patient for evaluation and placement into hospice care. 2. We will hold on placement of any feeding tubes at this time per the patient's wishes. We will sign off at this time. Please call with any additional questions. Job ID: [id number]
[2019-06-20] MEDS: Pantoprazole 40 MG VIAL IVP SCH (21:13)
[2019-06-20] MEDS: cefTRIAXone\\ROCEPHIN 1 GM in Sodium Chloride 0.9% 100 ML IVPB SCH (22:46)
[2019-06-21] MEDS: Vancomycin HCl 1 GM in Premix Bag 1 BAG IVPB SCH ×2 (00:09→12:37)
[2019-06-21 05:13] LABS: Hemoglobin 14.2 g/dL (12.0-16.0); Platelet Count 465 thou/uL (130-400)
[2019-06-21] MEDS: Atenolol 50 MG TAB PER TUBE SCH (09:53)
[2019-06-21] MEDS: Dexamethasone 4 mg/ml Vial SLOW IVP SCH ×2 (09:53→20:14)
[2019-06-21] MEDS: Acetaminophen 650 MG/20.3 ML UDCUP PER TUBE SCH (09:53)
[2019-06-21] MEDS: levETIRAcetam 500 mg/5 ml Oral Solution PER TUBE SCH ×2 (09:53→20:14)
[2019-06-21] MEDS: Carbidopa/Levodopa CR 50-200 mg Tablet FS SCH ×3 (09:55→20:14)
[2019-06-21] MEDS: Aspirin 325 MG TAB PER TUBE SCH (09:55)
[2019-06-21] MEDS: Lidocaine 4% Topical Sol 50 ML BOT TOP SCH (10:25)
--- NOTE | 2019-06-21 13:05 | PDOC.HOSPP ---
- Subjective Encounter Date: 06/21/19 Encounter Time: 12:45 Subjective: pt remains in the same conditon as y'day, lethargic, loud mouth breather. - Objective Vital Signs & Weight: Vital Signs (12 hours) Temp Pulse Pulse Pulse Resp BP BP 06/21/19 09:53 91 139/88 06/21/19 09:12 91 80 139/58 L 06/21/19 08:00 97.5 F L 86 20 06/21/19 04:00 98.3 F 76 18 BP BP Pulse Ox 06/21/19 09:53 06/21/19 09:12 139/75 06/21/19 08:00 169/99 H 06/21/19 04:00 96 Weight Admit Weight 119 lb Weight 119 lb 11.376 oz Most Recent Monitor Data Heart Rate from ECG 87 NIBP 142/93 NIBP BP-Mean 109 Respiration from ECG 23 SpO2 98 I&O: 06/20/19 06/21/19 06/22/19 06:59 06:59 06:59 Intake Total 2850 1530 Balance 2850 1530 Result Diagrams: 06/21/19 05:00 06/16/19 04:17 Additional Labs: Accuchecks 06/21/19 06/21/19 06/20/19 10:22 06:24 20:03 POC Glucose 132 H 124 H 150 H 06/20/19 16:39 POC Glucose 155 H Hospitalist ROS - Medication Medications: Active Medications Generic Name Dose Route Start Last Admin Trade Name Freq PRN Reason Stop Dose Admin Acetaminophen 650 mg 06/11/19 20:56 06/14/19 00:00 Tylenol [place] 650 mg Q4H PRN Administration Headache/Fever/MILD Pain 1-3 Acetaminophen 650 mg 06/13/19 09:00 06/21/19 09:53 Tylenol Elixir PER TUBE 650 mg DAILY DWIGHT Administration Lipase/Protease/Amylase 1 cap 06/13/19 15:42 06/19/19 13:14 Garcia Martin [id number] FS 1 cap .PER PROTOCOL PRN Administration TUBE OCCLUSION PROTOCOL Aspirin 325 mg 06/13/19 09:00 06/21/19 09:55 Aspirin PER TUBE 325 mg DAILY DWIGHT Administration Atenolol 25 mg 06/13/19 09:00 06/21/19 09:53 Tenormin PER TUBE 25 mg DAILY DWIGHT Administration Carbidopa/Levodopa 1.5 tab 06/19/19 15:00 06/21/19 09:55 Sinemet Cr 50/200 FS 1.5 tab TID DWIGHT Administration Dexamethasone 4 mg 06/17/19 21:00 06/21/19 09:53 Decadron SLOW IVP 4 mg BID DWIGHT Administration Hydralazine HCl 10 mg 06/10/19 19:27 06/17/19 21:45 Apresoline SLOW IVP 10 mg Q4H PRN Administration SBP > 180 or DBP > 105 Ceftriaxone Sodium 1 gm/ 100 mls @ 200 mls/hr 06/11/19 23:00 06/20/19 22:46 Sodium Chloride IVPB 100 mls Q24HR DWIGHT Administration Vancomycin HCl 1 gm/ Device 200 mls @ 200 mls/hr 06/14/19 13:00 06/21/19 12: 37 IVPB 200 mls 0100,1300 DWIGHT Administration Levetiracetam 500 mg 06/17/19 21:00 06/21/19 09:53 Keppra Oral Solution PER TUBE 500 mg BID DWIGHT Administration Lidocaine HCl 50 ml 06/12/19 09:00 06/21/19 10:25 Xylocaine 4% Topical Sheree TOP 1 applic DAILY DWIGHT Administration Pantoprazole Sodium 40 mg 06/16/19 21:00 06/20/19 21:13 Protonix IVP 40 mg HS DWIGHT Administration Rivaroxaban 20 mg 06/20/19 17:00 06/20/19 16:35 Xarelto PO 20 mg 1700 DWIGHT Administration Sodium Bicarbonate 650 mg 06/13/19 15:42 06/19/19 13:14 Bicarbonate, Sodium PER TUBE 650 mg .PER PROTOCOL PRN Administration ENTERAL TUBE OCCLUSION - Exam General Appearance: ill appearing Eye: PERRL ENT: normocephalic atraumatic Neck: supple, symmetric Heart: RRR Respiratory: normal chest expansion, rales, rhonchi, wheezes Gastrointestinal: soft, non-distended Extremities: no cyanosis Neurological: no focal deficits Hosp A/P - Plan 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 -general stroke protocol, poor prognosis given the extensive edema and magnitude , family wishing to pursue PEG tube placement -dexa bid, ASA. -Nutritional support with TF's -s/p Mannitol infusion (3) Apnea for greater than 15 seconds Intermittent apnea, anticipate this will become more frequent (2) Aphasia- (4) Dysphagia -GI note reviewed -MPOA will d/w rest of the family and let us know reg.. PEG. (5) Cellulitis of right lower extremity -on CTX (6) Chronic anticoagulation Code(s): Z79.01 - PATIENT OBSERVER (CURRENT) USE OF ANTICOAGULANTS Status: Chronic Plan: Xarelto on hold pending PEG placement -MPOA, Gerard Vanegas, will d/w rest of the family and let us know reg.. PEG. Poor prognosis overall. 9th - no change from the above plan.
[2019-06-21] MEDS: Rivaroxaban 10 MG TAB PO SCH (16:44)
[2019-06-21] MEDS: Pantoprazole 40 MG VIAL IVP SCH (20:14)
[2019-06-21] MEDS: cefTRIAXone\\ROCEPHIN 1 GM in Sodium Chloride 0.9% 100 ML IVPB SCH (23:23)
[2019-06-22] MEDS: Acetaminophen 650 MG/20.3 ML UDCUP PER TUBE SCH (09:58)
[2019-06-22] MEDS: Atenolol 50 MG TAB PER TUBE SCH (09:59)
[2019-06-22] MEDS: Aspirin 325 MG TAB PER TUBE SCH (09:59)
[2019-06-22] MEDS: Carbidopa/Levodopa CR 50-200 mg Tablet FS SCH ×3 (10:01→20:25)
[2019-06-22] MEDS: Dexamethasone 4 mg/ml Vial SLOW IVP SCH ×2 (10:02→20:26)
[2019-06-22] MEDS: levETIRAcetam 500 mg/5 ml Oral Solution PER TUBE SCH ×2 (10:07→20:26)
--- NOTE | 2019-06-22 12:38 | PDOC.HOSPP ---
- Subjective Encounter Date: 06/22/19 Encounter Time: 09:25 Subjective: talk to her dtr, Adrianne and discussed, hospice bernadette will be following and decide inpt hospice vs outside. pt at baseline. no change. - Objective Vital Signs & Weight: Vital Signs (12 hours) Temp Pulse Resp BP BP Pulse Ox 06/22/19 09:59 78 158/80 H 06/22/19 07:56 97.3 F L 78 18 158/80 H 96 06/22/19 04:00 98.7 F 80 16 119/72 93 L Weight Admit Weight 119 lb Weight 119 lb 11.376 oz Most Recent Monitor Data Heart Rate from ECG 87 NIBP 142/93 NIBP BP-Mean 109 Respiration from ECG 23 SpO2 98 I&O: 06/21/19 06/22/19 06/23/19 06:59 06:59 06:59 Intake Total 1530 3000 Balance 1530 3000 Result Diagrams: 06/21/19 05:00 06/16/19 04:17 Additional Labs: Accuchecks 06/22/19 06/22/19 06/21/19 10:54 05:58 20:13 POC Glucose 138 H 143 H 171 H 06/21/19 17:14 POC Glucose 177 H Hospitalist ROS - Medication Medications: Active Medications Generic Name Dose Route Start Last Admin Trade Name Freq PRN Reason Stop Dose Admin Acetaminophen 650 mg 06/11/19 20:56 06/14/19 00:00 Tylenol [place] 650 mg Q4H PRN Administration Headache/Fever/MILD Pain 1-3 Acetaminophen 650 mg 06/13/19 09:00 06/22/19 09:58 Tylenol Elixir PER TUBE 650 mg DAILY DWIGHT Administration Lipase/Protease/Amylase 1 cap 06/13/19 15:42 06/19/19 13:14 Garcia Martin [id number] FS 1 cap .PER PROTOCOL PRN Administration TUBE OCCLUSION PROTOCOL Aspirin 325 mg 06/13/19 09:00 06/22/19 09:59 Aspirin PER TUBE 325 mg DAILY DWIGHT Administration Atenolol 25 mg 06/13/19 09:00 06/22/19 09:59 Tenormin PER TUBE 25 mg DAILY DWIGHT Administration Carbidopa/Levodopa 1.5 tab 06/19/19 15:00 06/22/19 10:01 Sinemet Cr 50/200 FS 1.5 tab TID DWIGHT Administration Dexamethasone 4 mg 06/17/19 21:00 06/22/19 10:02 Decadron SLOW IVP 4 mg BID DWIGHT Administration Hydralazine HCl 10 mg 06/10/19 19:27 06/17/19 21:45 Apresoline SLOW IVP 10 mg Q4H PRN Administration SBP > 180 or DBP > 105 Vancomycin HCl 1 gm/ Device 200 mls @ 200 mls/hr 06/14/19 13:00 06/22/19 00: 00 IVPB 200 mls 0100,1300 DWIGHT Administration Levetiracetam 500 mg 06/17/19 21:00 06/22/19 10:07 Keppra Oral Solution PER TUBE 500 mg BID DWIGHT Administration Lidocaine HCl 50 ml 06/12/19 09:00 06/21/19 10:25 Xylocaine 4% Topical Sheree TOP 1 applic DAILY DWIGHT Administration Pantoprazole Sodium 40 mg 06/16/19 21:00 06/21/19 20:14 Protonix IVP 40 mg HS DWIGHT Administration Rivaroxaban 20 mg 06/20/19 17:00 06/21/19 16:44 Xarelto PO 20 mg 1700 DWIGHT Administration Sodium Bicarbonate 650 mg 06/13/19 15:42 06/19/19 13:14 Bicarbonate, Sodium PER TUBE 650 mg .PER PROTOCOL PRN Administration ENTERAL TUBE OCCLUSION - Exam General Appearance: NAD, ill appearing Eye: PERRL ENT: normocephalic atraumatic Neck: supple Heart: RRR Respiratory: CTAB, no wheezes Gastrointestinal: soft Extremities: no cyanosis Neurological: cranial nerve grossly intact, no new deficit Hosp A/P - Plan 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 -general stroke protocol, poor prognosis given the extensive edema and magnitude , family wishing to pursue PEG tube placement -dexa bid, ASA. -Nutritional support with TF's -s/p Mannitol infusion (3) Apnea for greater than 15 seconds Intermittent apnea, anticipate this will become more frequent (2) Aphasia- (4) Dysphagia -GI note reviewed -MPOA will d/w rest of the family and let us know reg.. PEG. (5) Cellulitis of right lower extremity -on CTX (6) Chronic anticoagulation Code(s): Z79.01 - DETENTION (CURRENT) USE OF ANTICOAGULANTS Status: Chronic Plan: Xarelto on hold pending PEG placement -MPOA, Gerard Seiter, will d/w rest of the family and let us know reg.. PEG. Poor prognosis overall. 9th - no change from the above plan. 10th- hospice, Bernadette is involved in her care today. possible hospice transfer in the next few days.
[2019-06-22] MEDS: Lidocaine 4% Topical Sol 50 ML BOT TOP SCH (13:18)
[2019-06-22] MEDS: Vancomycin HCl 1 GM in Premix Bag 1 BAG IVPB SCH ×2 (13:23)
[2019-06-22] MEDS: Rivaroxaban 10 MG TAB PO SCH (16:28)
[2019-06-22] MEDS: Pantoprazole 40 MG VIAL IVP SCH (20:26)
[2019-06-22] MEDS ORDERED: cefTRIAXone\\ROCEPHIN 1 GM in Sodium Chloride 0.9% 100 ML IVPB SCH (23:00)
[2019-06-23 05:46] LABS: Platelet Count 371 thou/uL (130-400)
[2019-06-23] MEDS: Acetaminophen 650 MG/20.3 ML UDCUP PER TUBE SCH (09:29)
[2019-06-23] MEDS: levETIRAcetam 500 mg/5 ml Oral Solution PER TUBE SCH ×2 (09:29→21:01)
[2019-06-23] MEDS: Carbidopa/Levodopa CR 50-200 mg Tablet FS SCH ×3 (09:30→21:01)
[2019-06-23] MEDS: Aspirin 325 MG TAB PER TUBE SCH (09:30)
[2019-06-23] MEDS: Atenolol 50 MG TAB PER TUBE SCH (09:30)
[2019-06-23] MEDS: Dexamethasone 4 mg/ml Vial SLOW IVP SCH ×2 (09:31→21:02)
[2019-06-23] MEDS: Lidocaine 4% Topical Sol 50 ML BOT TOP SCH (09:32)
[2019-06-23 12:38] LABS: Vancomycin, Trough 18.5 ug/mL
--- NOTE | 2019-06-23 12:53 | PDOC.HOSPP ---
- Subjective Encounter Date: 06/23/19 Encounter Time: : Subjective: spend sig.. amount of time talking to both dtrs and all medical options are discussed incll. PEG eval,,..etc.. they have talk to Anirudh Mtz last celeste., and talk to GI -- they are leaning tow.. LTAC and CM working on the case. pt able to recognize the family and able to write something on the paper last even. - Objective Vital Signs & Weight: Vital Signs (12 hours) Temp Pulse Resp BP Pulse Ox 06/23/19 11:29 97.8 F 97 16 130/77 97 06/23/19 09:30 81 06/23/19 09:29 97 06/23/19 07:44 97.5 F L 81 20 160/99 H 98 06/23/19 04:00 98.9 F 84 20 149/89 H 95 Weight Admit Weight 119 lb Weight 119 lb 11.376 oz Most Recent Monitor Data Heart Rate from ECG 87 NIBP 142/93 NIBP BP-Mean 109 Respiration from ECG 23 SpO2 98 I&O: 06/22/19 06/23/19 06/24/19 06:59 06:59 06:59 Intake Total 3000 3051 Output Total 700 Balance 3000 2351 Result Diagrams: 06/23/19 04:33 06/16/19 04:17 Additional Labs: Accuchecks 06/23/19 06/23/19 06/22/19 10:55 06:15 19:34 POC Glucose 128 H 130 H 152 H 06/22/19 17:16 POC Glucose 147 H Hospitalist ROS - Medication Medications: Active Medications Generic Name Dose Route Start Last Admin Trade Name Andrewsq PRN Reason Stop Dose Admin Acetaminophen 650 mg 06/11/19 20:56 06/14/19 00:00 Tylenol [place] 650 mg Q4H PRN Administration Headache/Fever/MILD Pain 1-3 Acetaminophen 650 mg 06/13/19 09:00 06/23/19 09:29 Tylenol Elixir PER TUBE 650 mg DAILY DWIGHT Administration Lipase/Protease/Amylase 1 cap 06/13/19 15:42 06/19/19 13:14 Garcia Martin [id number] FS 1 cap .PER PROTOCOL PRN Administration TUBE OCCLUSION PROTOCOL Aspirin 325 mg 06/13/19 09:00 06/23/19 09:30 Aspirin PER TUBE 325 mg DAILY DWIGHT Administration Atenolol 25 mg 06/13/19 09:00 06/23/19 09:30 Tenormin PER TUBE 25 mg DAILY DWIGHT Administration Carbidopa/Levodopa 1.5 tab 06/19/19 15:00 06/23/19 09:30 Sinemet Cr 50/200 FS 1.5 tab TID DWIGHT Administration Dexamethasone 4 mg 06/17/19 21:00 06/23/19 09:31 Decadron SLOW IVP 4 mg BID DWIGHT Administration Hydralazine HCl 10 mg 06/10/19 19:27 06/17/19 21:45 Apresoline SLOW IVP 10 mg Q4H PRN Administration SBP > 180 or DBP > 105 Vancomycin HCl 1 gm/ Device 200 mls @ 200 mls/hr 06/14/19 13:00 06/23/19 00: 00 IVPB 200 mls 0100,1300 DWIGHT Administration Levetiracetam 500 mg 06/17/19 21:00 06/23/19 09:29 Keppra Oral Solution PER TUBE 500 mg BID DWIGHT Administration Lidocaine HCl 50 ml 06/12/19 09:00 06/23/19 09:32 Xylocaine 4% Topical Sheree TOP Not Given DAILY DWIGHT Pantoprazole Sodium 40 mg 06/16/19 21:00 06/22/19 20:26 Protonix IVP 40 mg HS DWIGHT Administration Rivaroxaban 20 mg 06/20/19 17:00 06/22/19 16:28 Xarelto PO 20 mg 1700 DWIGHT Administration Sodium Bicarbonate 650 mg 06/13/19 15:42 06/19/19 13:14 Bicarbonate, Sodium PER TUBE 650 mg .PER PROTOCOL PRN Administration ENTERAL TUBE OCCLUSION - Exam General Appearance: NAD, awake alert Eye: PERRL ENT: normocephalic atraumatic Neck: supple, symmetric Heart: RRR Respiratory: normal chest expansion, no tachypnea Gastrointestinal: normal bowel sounds Hosp A/P - Plan 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 -general stroke protocol, poor prognosis given the extensive edema and magnitude , family wishing to pursue PEG tube placement -dexa bid, ASA. -Nutritional support with TF's -s/p Mannitol infusion (3) Apnea for greater than 15 seconds Intermittent apnea, anticipate this will become more frequent (2) Aphasia- (4) Dysphagia -GI note reviewed -MPOA will d/w rest of the family and let us know reg.. PEG. (5) Cellulitis of right lower extremity -on CTX (6) Chronic anticoagulation Code(s): Z79.01 - PRISON (CURRENT) USE OF ANTICOAGULANTS Status: Chronic Plan: Xarelto on hold pending PEG placement -MPOA, Gerard Vanegas, will d/w rest of the family and let us know reg.. PEG. Poor prognosis overall. 9th - no change from the above plan. 10th- hospice, Bernadette is involved in her care today. possible hospice transfer in the next few days. 11th spend sig.. amount of time talking to both dtrs and all medical options are discussed incll. PEG eval,,..etc.. they have talk to Anirudh Mtz last celeste., and talk to GI -- they are leaning tow.. LTAC and CM working on the case. pt able to recognize the family and able to write something on the paper last even. LTAC option being explored.
--- NOTE | 2019-06-23 13:52 | PRG ---
DATE OF SERVICE: 06/23/2019 SUBJECTIVE: Ms. Vanegas is sitting up at the bedside. She is being supported by 2 of her doctors and the therapist, but she is cooperating with the Physical Therapy. The patient's review of systems is not obtainable. She is aphasic. OBJECTIVE: VITAL SIGNS: Blood pressure 130/70. Pulse 80 to 90, irregular, it is atrial fibrillation. LUNGS: Clear. CARDIAC: Irregularly irregular. ASSESSMENT: 1. Atrial fibrillation, persistent, rate controlled. 2. Status post embolic stroke. PLAN: 1. She is on Xarelto and aspirin at reduced dose. 2. Continue atenolol. 3. We will sign off. Please consult if needed. The patient is stable at the present time. Long-term prognosis remains guarded. Current code status, do not resuscitate. Job ID: [id number]
[2019-06-23] MEDS: Vancomycin HCl 1 GM in Premix Bag 1 BAG IVPB SCH ×2 (13:53)
[2019-06-23] MEDS: Rivaroxaban 10 MG TAB PO SCH (15:59)
[2019-06-23] MEDS: Pantoprazole 40 MG VIAL IVP SCH (21:01)
[2019-06-24] MEDS: Vancomycin HCl 1 GM in Premix Bag 1 BAG IVPB SCH ×2 (01:06→14:34)
[2019-06-24 05:26] LABS: BUN (Urea Nitrogen) 32 mg/dL (9.8-20.1); Calc. Creatinine Clearance 68 mL/min (70-130); Estimated GFR-MDRD Greater than 90
[2019-06-24] MEDS: Lidocaine 4% Topical Sol 50 ML BOT TOP SCH (10:04)
[2019-06-24] MEDS: Aspirin Chewable 81 MG TAB PER TUBE SCH (10:05)
[2019-06-24] MEDS: Atenolol 50 MG TAB PER TUBE SCH (10:05)
[2019-06-24] MEDS: Dexamethasone 4 mg/ml Vial SLOW IVP SCH ×2 (10:05→21:21)
[2019-06-24] MEDS: Carbidopa/Levodopa CR 50-200 mg Tablet FS SCH ×3 (10:05→21:21)
[2019-06-24] MEDS: Acetaminophen 650 MG/20.3 ML UDCUP PER TUBE SCH (10:05)
[2019-06-24] MEDS: levETIRAcetam 500 mg/5 ml Oral Solution PER TUBE SCH ×2 (10:05→21:20)
--- NOTE | 2019-06-24 13:10 | PDOC.HOSPP ---
- Subjective Encounter Date: 06/24/19 Encounter Time: 10:25 Subjective: talk to the family at length, pt is almost participating in PT. has dialy BMs, pt recognize the dtrs. no certina neuro improvement. - Objective Vital Signs & Weight: Vital Signs (12 hours) Temp Pulse Resp BP Pulse Ox 06/24/19 11:19 97.9 F 73 16 148/79 H 98 06/24/19 10:05 75 06/24/19 08:00 100 06/24/19 07:25 97.7 F 75 14 125/74 100 06/24/19 03:20 98.8 F 59 L 20 154/97 H 98 Weight Admit Weight 119 lb Weight 119 lb 11.376 oz Most Recent Monitor Data Heart Rate from ECG 87 NIBP 142/93 NIBP BP-Mean 109 Respiration from ECG 23 SpO2 98 I&O: 06/23/19 06/24/19 06/25/19 06:59 06:59 06:59 Intake Total 3051 2515 Output Total 700 Balance 2351 2515 Result Diagrams: 06/23/19 04:33 06/24/19 04:22 Additional Labs: Accuchecks 06/24/19 06/24/19 06/23/19 10:35 06:20 19:42 POC Glucose 133 H 151 H 137 H 06/23/19 17:07 POC Glucose 148 H Hospitalist ROS - Medication Medications: Active Medications Generic Name Dose Route Start Last Admin Trade Name Freq PRN Reason Stop Dose Admin Acetaminophen 650 mg 06/11/19 20:56 06/14/19 00:00 Tylenol [place] 650 mg Q4H PRN Administration Headache/Fever/MILD Pain 1-3 Acetaminophen 650 mg 06/13/19 09:00 06/24/19 10:05 Tylenol Elixir PER TUBE 650 mg DAILY DWIGHT Administration Lipase/Protease/Amylase 1 cap 06/13/19 15:42 06/19/19 13:14 Garcia Martin [id number] FS 1 cap .PER PROTOCOL PRN Administration TUBE OCCLUSION PROTOCOL Aspirin 81 mg 06/24/19 09:00 06/24/19 10:05 Aspirin Chewable PER TUBE 81 mg DAILY DWIGHT Administration Atenolol 25 mg 06/13/19 09:00 06/24/19 10:05 Tenormin PER TUBE 25 mg DAILY DWIGHT Administration Carbidopa/Levodopa 1.5 tab 06/19/19 15:00 02/12/20 10:05 Sinemet Cr 50/200 FS 1.5 tab TID DWIGHT Administration Dexamethasone 4 mg 06/17/19 21:00 06/24/19 10:05 Decadron SLOW IVP 4 mg BID DWIGHT Administration Hydralazine HCl 10 mg 06/10/19 19:27 06/17/19 21:45 Apresoline SLOW IVP 10 mg Q4H PRN Administration SBP > 180 or DBP > 105 Vancomycin HCl 1 gm/ Device 200 mls @ 200 mls/hr 06/14/19 13:00 06/24/19 01: 06 IVPB 200 mls 0100,1300 DWIGHT Administration Levetiracetam 500 mg 06/17/19 21:00 06/24/19 10:05 Keppra Oral Solution PER TUBE 500 mg BID DWIGHT Administration Lidocaine HCl 50 ml 06/12/19 09:00 06/24/19 10:04 Xylocaine 4% Topical Sheree TOP 1 applic DAILY DWIGHT Administration Pantoprazole Sodium 40 mg 06/16/19 21:00 06/23/19 21:01 Protonix IVP 40 mg HS DWIGHT Administration Rivaroxaban 20 mg 06/20/19 17:00 06/23/19 15:59 Xarelto PO 20 mg 1700 DWIGHT Administration Sodium Bicarbonate 650 mg 06/13/19 15:42 06/19/19 13:14 Bicarbonate, Sodium PER TUBE 650 mg .PER PROTOCOL PRN Administration ENTERAL TUBE OCCLUSION - Exam General Appearance: ill appearing ENT: normocephalic atraumatic ENT - other findings: NGT Neck: supple, symmetric Heart: RRR Respiratory: CTAB, no wheezes, normal chest expansion, no tachypnea, rales Gastrointestinal: soft, non-distended, normal bowel sounds Extremities: no cyanosis Skin: normal turgor Neurological: no focal deficits Hosp A/P - Plan 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 -general stroke protocol, poor prognosis given the extensive edema and magnitude , family wishing to pursue PEG tube placement -dexa bid, ASA. -Nutritional support with TF's -s/p Mannitol infusion (3) Apnea for greater than 15 seconds Intermittent apnea, anticipate this will become more frequent (2) Aphasia- (4) Dysphagia -GI note reviewed -MPOA will d/w rest of the family and let us know reg.. PEG. (5) Cellulitis of right lower extremity -on CTX/vanc -- completed the course. (6) Chronic anticoagulation Code(s): Z79.01 - CORRECTION (CURRENT) USE OF ANTICOAGULANTS Status: Chronic Plan: Xarelto on hold pending PEG placement -Gerard MICHAUD, will d/w rest of the family and let us know reg.. PEG. Poor prognosis overall. 9th - no change from the above plan. 10th- hospice, Bernadette is involved in her care today. possible hospice transfer in the next few days. 11th spend sig.. amount of time talking to both dtrs and all medical options are discussed incll. PEG eval,,..etc.. they have talk to Anirudh Mtz last celeste., and talk to GI -- they are leaning tow.. LTAC and CM working on the case. pt able to recognize the family and able to write something on the paper last even. LTAC option being explored. 12th - no change in above mgmt - PEG tube, keppra, dexa bid, duo neb, ASA, xarelto - PPI PO - off abx - rec'd 10 day course -- completed -pending LTAC placement.
[2019-06-24] MEDS: Rivaroxaban 10 MG TAB PO SCH (15:39)
[2019-06-25 04:57] LABS: Hemoglobin 14.1 g/dL (12.0-16.0); Platelet Count 363 thou/uL (130-400)
[2019-06-25] MEDS: Acetaminophen 650 MG/20.3 ML UDCUP PER TUBE SCH (08:50)
[2019-06-25] MEDS: levETIRAcetam 500 mg/5 ml Oral Solution PER TUBE SCH ×2 (08:50→22:52)
[2019-06-25] MEDS: Atenolol 50 MG TAB PER TUBE SCH (08:50)
[2019-06-25] MEDS: Dexamethasone 4 mg/ml Vial SLOW IVP SCH ×2 (08:52→22:52)
[2019-06-25] MEDS: Aspirin Chewable 81 MG TAB PER TUBE SCH (08:52)
[2019-06-25] MEDS: Carbidopa/Levodopa CR 50-200 mg Tablet FS SCH ×3 (08:52→22:51)
[2019-06-25] MEDS: Lidocaine 4% Topical Sol 50 ML BOT TOP SCH (11:38)
--- NOTE | 2019-06-25 13:32 | PDOC.HOSPP ---
- Subjective Encounter Date: 06/25/19 Encounter Time: 10:00 Subjective: pt being care for by the staff, no pressure ulcers. it appears one of the family member is also admitted here. Family is trying to streamline this hardship and we wait until they are comfortable in transferring their mother to swing bed. - Objective Vital Signs & Weight: Vital Signs (12 hours) Temp Pulse Pulse Pulse Resp BP BP 06/25/19 11:54 97.8 F 68 22 H 06/25/19 11:40 82 71 129/74 06/25/19 09:36 16 06/25/19 08:50 83 186/104 H 06/25/19 08:00 97.1 F L 73 8 L 06/25/19 04:00 97.5 F L 72 16 BP BP Pulse Ox 06/25/19 11:54 148/82 H 98 06/25/19 11:40 148/82 H 06/25/19 09:36 147/89 H 06/25/19 08:50 06/25/19 08:00 186/110 H 100 06/25/19 04:00 139/77 98 Weight Admit Weight 119 lb Weight 119 lb 11.376 oz Most Recent Monitor Data Heart Rate from ECG 87 NIBP 142/93 NIBP BP-Mean 109 Respiration from ECG 23 SpO2 98 I&O: 06/24/19 06/25/19 06/26/19 06:59 06:59 06:59 Intake Total 2515 2041 Balance 2515 2041 Result Diagrams: 06/25/19 04:24 06/24/19 04:22 Additional Labs: Accuchecks 06/25/19 06/25/19 06/24/19 10:42 06:04 20:22 POC Glucose 143 H 158 H 167 H 06/24/19 16:41 POC Glucose 176 H Hospitalist ROS - Medication Medications: Active Medications Generic Name Dose Route Start Last Admin Trade Name Freq PRN Reason Stop Dose Admin Acetaminophen 650 mg 06/11/19 20:56 06/14/19 00:00 Tylenol LA 650 mg Q4H PRN Administration Headache/Fever/MILD Pain 1-3 Acetaminophen 650 mg 06/13/19 09:00 06/25/19 08:50 Tylenol Elixir PER TUBE 650 mg DAILY DWIGHT Administration Lipase/Protease/Amylase 1 cap 06/13/19 15:42 06/19/19 13:14 Garcia Martin [id number] FS 1 cap .PER PROTOCOL PRN Administration TUBE OCCLUSION PROTOCOL Aspirin 81 mg 06/24/19 09:00 06/25/19 08:52 Aspirin Chewable PER TUBE 81 mg DAILY DWIGHT Administration Atenolol 25 mg 06/13/19 09:00 06/25/19 08:50 Tenormin PER TUBE 25 mg DAILY DWIGHT Administration Carbidopa/Levodopa 1.5 tab 06/19/19 15:00 06/25/19 08:52 Sinemet Cr 50/200 FS 1.5 tab TID DWIGHT Administration Dexamethasone 4 mg 06/17/19 21:00 06/25/19 08:52 Decadron SLOW IVP 4 mg BID DWIGHT Administration Hydralazine HCl 10 mg 06/10/19 19:27 06/17/19 21:45 Apresoline SLOW IVP 10 mg Q4H PRN Administration SBP > 180 or DBP > 105 Levetiracetam 500 mg 06/17/19 21:00 06/25/19 08:50 Keppra Oral Solution PER TUBE 500 mg BID DWIGHT Administration Lidocaine HCl 50 ml 06/12/19 09:00 06/25/19 11:38 Xylocaine 4% Topical Sheree TOP Not Given DAILY DWIGHT Pantoprazole Sodium 40 mg 06/25/19 09:00 06/25/19 08:51 Protonix PO 40 mg DAILY DWIGHT Administration Rivaroxaban 20 mg 06/20/19 17:00 06/24/19 15:39 Xarelto PO 20 mg 1700 DWIGHT Administration Sodium Bicarbonate 650 mg 06/13/19 15:42 06/19/19 13:14 Bicarbonate, Sodium PER TUBE 650 mg .PER PROTOCOL PRN Administration ENTERAL TUBE OCCLUSION - Exam General Appearance: ill appearing Eye: PERRL ENT: normocephalic atraumatic Neck: supple, symmetric Heart: RRR, no murmur Respiratory: CTAB Gastrointestinal: soft, non-tender, non-distended Extremities: no cyanosis Neurological: cranial nerve grossly intact, no focal deficits Hosp A/P - Plan 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 -general stroke protocol, poor prognosis given the extensive edema and magnitude , family wishing to pursue PEG tube placement -dexa bid, ASA. -Nutritional support with TF's -s/p Mannitol infusion (3) Apnea for greater than 15 seconds Intermittent apnea, anticipate this will become more frequent (2) Aphasia- (4) Dysphagia -GI note reviewed -MPOA will d/w rest of the family and let us know reg.. PEG. (5) Cellulitis of right lower extremity -on CTX/vanc -- completed the course. (6) Chronic anticoagulation Code(s): Z79.01 - MGMT ANALYST (CURRENT) USE OF ANTICOAGULANTS Status: Chronic Plan: Xarelto on hold pending PEG placement -MPOA, Gerard Vanegas, will d/w rest of the family and let us know reg.. PEG. Poor prognosis overall. 9th - no change from the above plan. 10th- hospice, Bernadette is involved in her care today. possible hospice transfer in the next few days. 11th spend sig.. amount of time talking to both dtrs and all medical options are discussed incll. PEG eval,,..etc.. they have talk to Anirudh [facility] last celeste., and talk to GI -- they are leaning tow.. LTAC and CM working on the case. pt able to recognize the family and able to write something on the paper last even. LTAC option being explored. 12th - no change in above mgmt - PEG tube, keppra, dexa bid, duo neb, ASA, xarelto - PPI PO - off abx - rec'd 10 day course -- completed -pending LTAC placement. 13th it appears one of the family member is also admitted here. Family is trying to streamline this hardship and we wait until they are comfortable in transferring their mother to swing bed. Lipitor low dose qhs - stroke measure.
[2019-06-25] MEDS: Rivaroxaban 10 MG TAB PO SCH (16:29)
[2019-06-25] MEDS ORDERED: Atorvastatin Calcium 10 MG TAB PER TUBE SCH (21:00)
[2019-06-26] MEDS: levETIRAcetam 500 mg/5 ml Oral Solution PER TUBE SCH (10:37)
[2019-06-26] MEDS: Acetaminophen 650 MG/20.3 ML UDCUP PER TUBE SCH (10:38)
[2019-06-26] MEDS: Aspirin Chewable 81 MG TAB PER TUBE SCH (10:38)
[2019-06-26] MEDS: Atenolol 50 MG TAB PER TUBE SCH (10:38)
[2019-06-26] MEDS: Dexamethasone 4 mg/ml Vial SLOW IVP SCH (10:38)
[2019-06-26] MEDS: Carbidopa/Levodopa CR 50-200 mg Tablet FS SCH (10:39)
[2019-06-26] MEDS: Lidocaine 4% Topical Sol 50 ML BOT TOP SCH (12:15)
[2019-06-26 12:27] VITALS: BP 142/86; TEMP 98.9
--- NOTE | 2019-06-26 14:56 | PDOC.EVN ---
Event Note - Event Note Event Note: dc meds included asa and xarelto inadvertently, talked to the nurse to communicate to the swing bed to hold both ASA and xArelto as pt admitted on jun 10 with M1 segment showed clot and unsuccessful mechnaical thrombectomy. should not restart until evulation by PCP or neurologist.
--- NOTE | 2019-06-29 11:34 | DIS ---
DATE OF ADMISSION: 06/10/2019 DATE OF DISCHARGE: 06/26/2019 DISCHARGE DIAGNOSES: 1. Cerebrovascular accident due to embolic occlusion of the left middle cerebral artery. 2. Apnea for greater than 15 seconds with intermittent apnea. 3. Dysphagia, on mechanical soft diet. No percutaneous endoscopic gastrostomy tube placement. 4. Lower extremity cellulitis, completed the antibiotic course with vancomycin and ceftriaxone. 5. Chronic anticoagulation with Xarelto. Palliative evaluation during the hospitalization. Hospice also considered. The family opted to go to LTAC for the time being. Chronic medical issues: 1. Hepatitis. 2. Coronary artery disease. 3. Atrial fibrillation. 4. Osteoarthritis and osteoporosis. DISCHARGE MEDICATIONS: 1. Aspirin 81 mg daily. 2. Atenolol 25 mg daily. 3. Lipitor 10 mg daily as a part of the stroke protocol has been introduced. 4. Sinemet 1-1/2 tablets three times a day. 5. Dexamethasone 4 mg IV b.i.d. for two weeks and needs to be followed either with primary care physician or neurologist. This has been started as a part of the palliative process. 6. Keppra 500 mg b.i.d. 7. Protonix 40 mg daily. 8. Potassium chloride 10 mEq daily. 9. Raloxifene 60 mg daily. 10. Xarelto 15 mg daily. 11. Spironolactone 25 mg p.o. daily. PHYSICAL EXAMINATION: GENERAL: On the day of discharge, the patient appears well. She is at the baseline. She is for the most part nonverbal. CARDIOVASCULAR: Regular rate and rhythm without murmurs, rubs, or gallops. LUNGS: Clear to auscultation bilaterally. No wheezing. ABDOMEN: Abdominal exam quite unremarkable. EXTREMITIES: Lower extremities without pitting edema. HOSPITAL COURSE: This is an 84-year-old female admitted with acute stroke in the M1 segment of MCA. CT is negative for hemorrhage, but CT angiography revealed clot in the M1 segment of MCA. Dr. Paris attempted a cerebral angiography and mechanical thrombectomy and not successful. Acute CVA, mechanical thrombectomy in 06/10/2019. Over the course of the time, the patient declined in her medical condition. She for the most part bed-bound, neurocognitive, severely impaired. She only recognized her family members . Hospice is consulted. However, the patient's family felt that she would benefit with LTAC. In this regard, the patient is transferred to the swing bed/LTAC care. DISCHARGE INSTRUCTIONS: Activity with supervision. Please hold Xarelto and aspirin until re-evaluated by her primary care physician and if the prognosis has changed. Discharge time took over 30 minutes. Job ID: [id number]
== END 2019-06-26 14:07 | DRG 23 ==
LOC: CCU 17:20 → T4-B 06-11 17:09 → 2SE 06-12 17:24
PROVIDERS: ADMIT Internal Medicine; ATTEND Emergency Medicine
PROC: 03CG3ZZ Extirpation of Matter from Intracranial Artery, Percutaneous Approach (ICD-10-PCS; principal; 2019-06-10)
DX: I63.412 Cerebral infarction due to embolism of left middle cerebral artery (principal); G93.6 Cerebral edema; A41.9 Sepsis, unspecified organism; Z66 Do not resuscitate; Z51.5 Encounter for palliative care; R40.2343 Coma scale, best motor response, flexion withdrawal, at hospital admission; R40.2123 Coma scale, eyes open, to pain, at hospital admission; R40.2213 Coma scale, best verbal response, none, at hospital admission; G81.91 Hemiplegia, unspecified affecting right dominant side; L03.115 Cellulitis of right lower limb; I50.32 Chronic diastolic (congestive) heart failure; G93.49 Other encephalopathy; I13.0 Hypertensive heart and chronic kidney disease with heart failure and stage 1 through stage 4 chronic kidney disease, or unspecified chronic kidney disease; L97.329 Non-pressure chronic ulcer of left ankle with unspecified severity; I48.19 Other persistent atrial fibrillation; R29.730 NIHSS score 30; R47.01 Aphasia; R29.810 Facial weakness; I25.10 Atherosclerotic heart disease of native coronary artery without angina pectoris; M19.90 Unspecified osteoarthritis, unspecified site; M81.0 Age-related osteoporosis without current pathological fracture; Z96.652 Presence of left artificial knee joint; E87.5 Hyperkalemia; N18.2 Chronic kidney disease, stage 2 (mild); R13.12 Dysphagia, oropharyngeal phase; I87.2 Venous insufficiency (chronic) (peripheral); Z28.21 Immunization not carried out because of patient refusal; Z90.49 Acquired absence of other specified parts of digestive tract; Z79.899 Other long term (current) drug therapy; Z79.01 Long term (current) use of anticoagulants
CPT/HCPCS: 36415; 36416; 37185; 70450; 74018; 80048; 80061; 80202; 82565; 83735; 83930; 84520; 85014; 85018; 85025; 85049; 87040; 87070; 87205; 93306; C1757; C1769; C1887; C9113; J0360; J0696; J1100; J1200; J1644; J1953; J2150; J2250; J2405; J2704; J3010; J3370; J3480; J3490; Q9967

== ENCOUNTER 2019-07-26 11:14 | Observation (INO) | payer MEDICARE ==
[2019-07-26 13:28] LABS: #Basophils 0.1 thou/uL (0.0-0.2); #Lymphocytes 0.5 thou/uL (1.20-3.40); #Monocytes 0.2 thou/uL (0.11-0.59); #Neutrophils 11.4 thou/uL (1.40-6.50); %Basophils 1.1 % (0.0-1.0); %Eosinophils 0.1 % (0.0-10.0); %Lymphocytes 4.1 % (21.0-51.0); %Monocytes 1.5 % (0.0-10.0); %Neutrophils 93.3 % (42.0-75.0); Hemoglobin 13.3 g/dL (12.0-16.0); Mean Corpuscular HGB CONC 33.1 g/dL (32.0-36.0); Mean Corpuscular Hemoglobin 32.9 pg (27.0-31.0); Mean Corpuscular Volume 99.4 fL (78.0-98.0); Mean Platelet Volume 7.8 fL (7.4-10.4); Platelet Count 158 thou/uL (130-400); Red Blood Cell (RBC) Count 4.05 mill/uL (4.20-5.40); White Blood Cell (WBC) Count 12.2 thou/uL (4.8-10.8)
[2019-07-26 13:35] LABS: INR-International Normal Ratio 1.7; PTT 36.6 SEC (22.9-36.1); Prothrombin Time 20.2 SEC (12.0-14.7)
[2019-07-26 13:49] LABS: ALT (SGPT) 13 U/L (8-55); AST (SGOT) 35 U/L (5-34); Alkaline Phosphatase 75 U/L (40-110); Anion Gap 12 mmol/L (10-20); BUN (Urea Nitrogen) 25 mg/dL (9.8-20.1); Bilirubin, Total 1.1 mg/dL (0.2-1.2); Calc. Creatinine Clearance 0 mL/min (70-130); Calcium 8.6 mg/dL (7.8-10.44); Carbon Dioxide 29 mmol/L (23-31); Chloride 98 mmol/L (98-107); Estimated GFR-MDRD Greater than 90; Globulin 2.7 g/dL (2.4-3.5); Glucose 73 mg/dL (83-110); Potassium 4.2 mmol/L (3.5-5.1); Protein, Total 5.7 g/dL (6.0-8.3); Sodium 135 mmol/L (136-145)
[2019-07-26] MEDS ORDERED: Ondansetron PF 4 MG/2 ML Vial IVP PRN (18:47)
[2019-07-26] MEDS ORDERED: Acetaminophen 325 MG TAB PO PRN (18:47)
[2019-07-26] MEDS ORDERED: Dextrose 50% Abboject 50 ML SYRINGE SLOW IVP PRN (19:03)
[2019-07-26] MEDS ORDERED: HumaLOG 300 UNITS/3 ML VIAL SC PRN (19:03)
[2019-07-26] MEDS ORDERED: Dextrose 5% in Water 1,000 ML IV PRN (19:03)
--- NOTE | 2019-07-26 19:38 | HP ---
PRIMARY CARE PROVIDER: Pramod Khan MD CHIEF COMPLAINT: Rectal bleeding. HISTORY OF PRESENT ILLNESS: Ms. Vanegas is a pleasant 84-year-old lady, who was seen at [facility] on July 26, 2019. The patient was hospitalized at this facility from June 10, 2019, to June 26, 2019, for cerebrovascular accident due to embolic occlusion of the left middle cerebral artery, apnea for greater than 15 seconds with intermittent apnea, dysphagia, and lower extremity cellulitis. She was discharged to [facility]. She was discharged from [facility] yesterday and was admitted to [facility]. She had PEG tube placement last Saturday. She reportedly had urinary and fecal retention while she was at [facility]. Laxatives were tried, and she had small amount of bleeding. Today, she was found to have rectal bleeding. She also had apneic spells. She was, therefore, brought to the emergency room. Please note that the patient is unable to provide any history secondary to cerebrovascular accident. History was obtained from discussion with the patient's daughter by the bedside, review of medical records, and discussion with emergency room physician. In the emergency room, she was found to have significant apneic spells. There was concern that she may . Family was contacted. Hospice Service was also contacted. The patient improved while she was in the emergency room. She was deemed not to be a candidate for hospice. Family did not want to take the patient back to [facility]. They would like to pursue the option of palliative care at home. The patient is being admitted for Palliative Care consultation. Family also do not want any aggressive measures including chest compressions, central lines, intubation and mechanical ventilation, or endoscopic investigations. If the patient needs blood transfusion, they would like the medical team to discuss with the family before deciding to give blood. REVIEW OF SYSTEMS: Could not be completed secondary to the patient's nonverbal status. PAST MEDICAL HISTORY: Coronary artery disease; diabetes mellitus, type 2; cerebrovascular accident; gastroesophageal reflux disease; hypertension; osteoporosis; Parkinson disease; varicose vein; and chronic right leg wound. PAST SURGICAL HISTORY: Fallopian tube surgery, right cataract surgery, left knee surgery, appendectomy, and left rotator cuff surgery. PSYCHIATRIC HISTORY: Anxiety. SOCIAL HISTORY: No history of tobacco use or recreational drug use. Occasional alcohol use in the past. FAMILY HISTORY: Negative for premature coronary artery disease. ALLERGIES: TETRACYCLINE. CURRENT MEDICATIONS: These need to be clarified, but include: 1. Acetaminophen. 2. Atorvastatin. 3. Atenolol. 4. Aspirin. 5. Bisacodyl. 6. Carbidopa/levodopa. 7. Dexamethasone. 8. Folic acid. 9. Ipratropium inhalation. 10. Levetiracetam. 11. Rivaroxaban. 12. Senokot S. 13. Thiamine. CODE STATUS: I discussed her code status. She is DNAR. PHYSICAL EXAMINATION: GENERAL: Ms. Vanegas is awake, not alert, not in acute distress. VITAL SIGNS: Blood pressure is 106/72, pulse 84, respiratory rate 14, and oxygen saturation 99% on room air. She is afebrile. EYES: No scleral icterus. No conjunctival pallor. ENT: Moist mucosal membranes. No oropharyngeal erythema or exudates. NECK: Nontender. Trachea is midline. RESPIRATORY: Accessory muscles of breathing are not active. Chest wall movements are symmetric bilaterally. Lungs are clear to auscultation without wheeze, rhonchi, or crepitations. CARDIOVASCULAR: S1 and S2 are heard, regular. Peripheral pulses palpable. ABDOMEN: Soft and nontender. Bowel sounds heard. She has a PEG tube. NEUROLOGIC: Full neurologic examination was not possible secondary to the patient's noncooperation. The patient does not have any spontaneous movement of her extremities. Deep tendon reflexes 2+. MUSCULOSKELETAL: Unable to assess power in the 4 extremities. SKIN: She has a chronic wound over the right keller. She also has left keller stasis dermatitis. LYMPHATIC: No cervical lymphadenopathy. PSYCHIATRIC: Unable to assess mood, affect, or orientation to person, place, or time. LABORATORY DATA: Ms. Vanegas's labs and investigations were reviewed. She has leukocytosis with 12,200 white cells, of which 93% are neutrophils. Hemoglobin and platelet count are normal. INR is 1.7. Sodium is decreased at 135. Potassium is normal. Creatinine is low at 0.41. AST is mildly elevated at 35. ALT, alkaline phosphatase, and total bilirubin are normal. Albumin is low at 3.0. ASSESSMENT AND PLAN: Ms. Vanegas is a pleasant 84-year-old lady, who was seen at [facility] on July 26, 2019. Her problem list includes: 1. Lower gastrointestinal bleed: Ms. Vanegas is presenting with lower gastrointestinal bleed. Her hemoglobin is stable, 13.3 today. I had a lengthy discussion with the patient's daughter. She does not wish to have any aggressive measures including endoscopic studies. They would like Palliative Care consultation, so that arrangements can be made for palliative care at home. The patient improved after she received intravenous hydration. Family would like the patient to be provided intravenous hydration. I will also have her hemoglobin rechecked in the morning. 2. History of ischemic cerebrovascular accident: The patient is currently on aspirin and rivaroxaban. I will hold rivaroxaban for now, and it will be restarted if hemoglobin is stable. 3. Parkinson disease: Continue Sinemet. 4. Hyponatremia: Mild, likely asymptomatic. 5. Diabetes mellitus, type 2: Start Accu-Cheks and insulin sliding scale. 6. Hypertension: Resume home medications after clarifying. Many thanks for allowing me to participate in your patient's care. Please feel free to contact me with any questions or concerns. LEVEL OF RISK: Moderate. LEVEL OF COMPLEXITY: Moderate. Job ID: [id number]
[2019-07-26] MEDS: levETIRAcetam 500 mg/5 ml Oral Solution PER TUBE SCH (21:18)
[2019-07-26] MEDS: Carbidopa/Levodopa CR 50-200 mg Tablet FS SCH (21:18)
[2019-07-26] MEDS: Sodium Chloride 0.9% 1,000 ML IV SCH (21:18)
[2019-07-26] MEDS: Atorvastatin Calcium 10 MG TAB PER TUBE SCH (21:18)
[2019-07-27 06:22] LABS: #Basophils 0.1 thou/uL (0.0-0.2); #Lymphocytes 0.3 thou/uL (1.20-3.40); #Monocytes 0.2 thou/uL (0.11-0.59); #Neutrophils 8.2 thou/uL (1.40-6.50); %Basophils 1.2 % (0.0-1.0); %Eosinophils 0.2 % (0.0-10.0); %Monocytes 2.6 % (0.0-10.0); %Neutrophils 93.1 % (42.0-75.0); Hemoglobin 11.2 g/dL (12.0-16.0); Mean Corpuscular HGB CONC 32.8 g/dL (32.0-36.0); Mean Corpuscular Hemoglobin 33.1 pg (27.0-31.0); Mean Platelet Volume 7.6 fL (7.4-10.4); Platelet Count 153 thou/uL (130-400); RBC Distribution Width 16.3 % (11.5-14.5); Red Blood Cell (RBC) Count 3.37 mill/uL (4.20-5.40); White Blood Cell (WBC) Count 8.8 thou/uL (4.8-10.8)
[2019-07-27 07:28] LABS: Anion Gap 12 mmol/L (10-20); BUN (Urea Nitrogen) 17 mg/dL (9.8-20.1); Calc. Creatinine Clearance 94 mL/min (70-130); Carbon Dioxide 23 mmol/L (23-31); Chloride 104 mmol/L (98-107); Estimated GFR-MDRD Greater than 90; Glucose 99 mg/dL (83-110); Potassium 3.2 mmol/L (3.5-5.1); Sodium 136 mmol/L (136-145)
[2019-07-27] MEDS: Atenolol 25 MG TAB PER TUBE SCH (08:19)
[2019-07-27] MEDS: Sodium Chloride 0.9% 1,000 ML IV SCH ×2 (08:19→21:00)
[2019-07-27] MEDS: levETIRAcetam 500 mg/5 ml Oral Solution PER TUBE SCH ×2 (08:19→22:02)
[2019-07-27] MEDS: Aspirin Chewable 81 MG TAB PER TUBE SCH (08:20)
[2019-07-27] MEDS: Carbidopa/Levodopa CR 50-200 mg Tablet FS SCH ×3 (08:20→22:02)
[2019-07-27] MEDS: Dexamethasone 4 MG TAB PER TUBE SCH (08:21)
[2019-07-27] MEDS: BIOTENE MOUTH SPRAY 44.3 ML PO SCH ×3 (13:59→22:00)
[2019-07-27 16:01] VITALS: BMI 21.1
[2019-07-27] MEDS: Pantoprazole 40 MG VIAL IVP SCH (16:14)
--- NOTE | 2019-07-27 17:42 | PDOC.HOSPP ---
- Subjective Encounter Date: 07/27/19 Encounter Time: 17:30 Subjective: f/u for rectal bleeding in context of recent constipation and Xarelto. Receiving IVF's, Protonix and Xarelto on hold. Remains bed bound, aphasic after recent L MCA territorial infarct. TF's on hold. - Objective Vital Signs & Weight: Vital Signs (12 hours) Temp Pulse Resp BP BP Pulse Ox 07/27/19 08:19 88 118/79 07/27/19 07:51 97.4 F L 88 22 H 118/79 95 Weight Admit Weight 127 lb Weight 127 lb Result Diagrams: 07/27/19 05:53 07/27/19 05:53 Additional Labs: Accuchecks 07/27/19 07/27/19 07/27/19 16:48 11:08 04:52 POC Glucose 108 106 56 L* Microbiology 06/10/19 21:21 Venous blood - Right Hand Blood Culture - Preliminary NO GROWTH AT 48 HOURS 06/10/19 21:10 Venous blood - Left Arm Blood Culture - Preliminary NO GROWTH AT 48 HOURS 06/10/19 21:01 Leg - Right Bacterial Culture - Preliminary Laboratory Tests 06/10/19 06/10/19 06/11/19 21:10 21:10 03:00 WBC 17.2 H 11.9 H Hgb Sodium 137 Potassium Serum Osmolality Magnesium Vancomycin Trough 06/11/19 06/11/19 06/12/19 03:30 23:13 05:25 WBC Hgb Sodium 135 L 131 L Potassium Serum Osmolality Magnesium 1.7 Vancomycin Trough 8.0 06/12/19 06/13/19 06/13/19 05:25 04:22 04:22 WBC 14.9 H Hgb Sodium 130 L Potassium 3.4 L Serum Osmolality 273 L Magnesium Vancomycin Trough 06/14/19 06/14/19 07/26/19 00:18 05:01 13:15 WBC Hgb Sodium Potassium 4.2 Serum Osmolality 291 Magnesium Vancomycin Trough 6.3 07/26/19 13:15 WBC 12.2 H Hgb 13.3 Sodium Potassium Serum Osmolality Magnesium Vancomycin Trough Hospitalist ROS - Medication Medications: Active Medications Generic Name Dose Route Start Last Admin Trade Name Freq PRN Reason Stop Dose Admin Aspirin 81 mg 07/27/19 09:00 07/27/19 08:20 Aspirin Chewable PER TUBE 81 mg DAILY DWIGHT Administration Atenolol 25 mg 07/27/19 09:00 07/27/19 08:19 Tenormin PER TUBE Not Given DAILY DWIGHT Atorvastatin Calcium 10 mg 07/26/19 21:00 07/26/19 21:18 Lipitor PER TUBE 10 mg HS DWIGHT Administration Carbidopa/Levodopa 1.5 tab 07/26/19 21:00 07/27/19 14:02 Sinemet Cr 50/200 FS 1.5 tab TID DWIGHT Administration Dexamethasone 2 mg 07/27/19 09:00 07/27/19 08:21 Decadron PER TUBE 2 mg DAILY DWIGHT Administration Sodium Chloride 1,000 mls @ 75 mls/hr 07/26/19 19:00 07/27/19 08:19 Normal Saline 0.9% IV 1,000 mls .[id number] DWIGHT Administration Levetiracetam 500 mg 07/26/19 21:00 07/27/19 08:19 Keppra Oral Solution PER TUBE 500 mg BID DWIGHT Administration Miscellaneous Medication 0 ml 07/27/19 14:00 07/27/19 13:59 Biotene Moisturizing Mouth PO 1 spr [id number] DWIGHT Administration Pantoprazole Sodium 40 mg 07/27/19 15:00 07/27/19 16:14 Protonix IVP 40 mg Q12H DWIGHT Administration - Exam General Appearance: ill appearing General - other findings: aphasic Eye: PERRL ENT: normocephalic atraumatic, no oropharyngeal lesions Neck: supple, symmetric, no JVD, no thyromegaly Heart: RRR, no gallops, no rubs, normal peripheral pulses Heart - other findings: S1, S2 Respiratory: CTAB, no wheezes, no rales, no ronchi Gastrointestinal: soft, non-tender, non-distended, normal bowel sounds Extremities: no cyanosis, no clubbing, no edema Neurological - other findings: aphasic, dysphagia, does not follow commands Musculoskeletal: generalized weakness, diffuse muscle atrophy Psychiatric: somnolent, lethargic Hosp A/P (1) Hematochezia Code(s): K92.1 - MELENA Status: Acute Plan: Likely due to anticoagulant use in conjunction with constipation, serial H/H monitoring, no intervention per family request (2) Chronic anticoagulation Code(s): Z79.01 - SKILLED NURSING (CURRENT) USE OF ANTICOAGULANTS Status: Chronic Plan: Hold Xarelto indefinitely (3) 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 Code(s): I63.412 - CEREB INFRC DUE TO EMBOLISM OF LEFT MIDDLE CEREBRAL ARTERY Status: Acute Plan: Large L MCA terrritorial infarct, remains clinically unchanged in relation to last 4 weeks (4) Aphasia Code(s): R47.01 - APHASIA Status: Chronic Plan: Secondary to above, supportive mgmt - Plan plan discussed w/ family, social media senior associate, DVT proph w/SCDs Consults: Palliative Care Continue supportive mgmt Hold Xarelto Continue IVF's TF's on hold Palliative care consult Likely will transition home with Palliative care when arranged AM lab: H/H
[2019-07-27] MEDS: Atorvastatin Calcium 10 MG TAB PER TUBE SCH (22:03)
[2019-07-28] MEDS: Pantoprazole 40 MG VIAL IVP SCH ×2 (03:35→15:45)
[2019-07-28 05:58] LABS: Hemoglobin 11.3 g/dL (12.0-16.0); Platelet Count 160 thou/uL (130-400)
[2019-07-28] MEDS: BIOTENE MOUTH SPRAY 44.3 ML PO SCH ×5 (06:14→22:00)
[2019-07-28] MEDS: levETIRAcetam 500 mg/5 ml Oral Solution PER TUBE SCH ×2 (09:29→22:00)
[2019-07-28] MEDS: Carbidopa/Levodopa CR 50-200 mg Tablet FS SCH ×3 (09:29→22:00)
[2019-07-28] MEDS: Atenolol 25 MG TAB PER TUBE SCH (09:30)
[2019-07-28] MEDS: Dexamethasone 4 MG TAB PER TUBE SCH (09:31)
[2019-07-28] MEDS: Aspirin Chewable 81 MG TAB PER TUBE SCH (09:32)
[2019-07-28] MEDS: Sodium Chloride 0.9% 1,000 ML IV SCH (11:42)
--- NOTE | 2019-07-28 13:36 | PDOC.HOSPP ---
- Subjective Encounter Date: 07/28/19 Encounter Time: 13:25 Subjective: f/u for rectal bleeding now resolved. BM's normal per nursing. Daughters wishing to pursue hospice at home and are coordinating. - Objective Vital Signs & Weight: Vital Signs (12 hours) Temp Pulse Resp BP BP Pulse Ox 07/28/19 09:30 86 131/85 07/28/19 08:00 97.6 F 86 24 H 131/85 96 07/28/19 04:00 98.1 F 89 16 133/86 94 L Weight Admit Weight 127 lb Weight 127 lb I&O: 07/27/19 07/28/19 07/29/19 06:59 06:59 06:59 Intake Total 1035 Output Total 400 Balance 635 Result Diagrams: 07/28/19 05:30 07/27/19 05:53 Additional Labs: Accuchecks 07/28/19 07/28/19 07/27/19 11:18 04:53 19:51 POC Glucose 88 82 102 07/27/19 16:48 POC Glucose 108 Microbiology 06/10/19 21:21 Venous blood - Right Hand Blood Culture - Preliminary NO GROWTH AT 48 HOURS 06/10/19 21:10 Venous blood - Left Arm Blood Culture - Preliminary NO GROWTH AT 48 HOURS 06/10/19 21:01 Leg - Right Bacterial Culture - Preliminary Laboratory Tests 06/10/19 06/10/19 06/11/19 21:10 21:10 03:00 WBC 17.2 H 11.9 H Hgb Sodium 137 Potassium Serum Osmolality Magnesium Vancomycin Trough 06/11/19 06/11/19 06/12/19 03:30 23:13 05:25 WBC Hgb Sodium 135 L 131 L Potassium Serum Osmolality Magnesium 1.7 Vancomycin Trough 8.0 06/12/19 06/13/19 06/13/19 05:25 04:22 04:22 WBC 14.9 H Hgb Sodium 130 L Potassium 3.4 L Serum Osmolality 273 L Magnesium Vancomycin Trough 06/14/19 06/14/19 07/26/19 00:18 05:01 13:15 WBC Hgb Sodium Potassium 4.2 Serum Osmolality 291 Magnesium Vancomycin Trough 6.3 07/26/19 13:15 WBC 12.2 H Hgb 13.3 Sodium Potassium Serum Osmolality Magnesium Vancomycin Trough Hospitalist ROS - Medication Medications: Active Medications Generic Name Dose Route Start Last Admin Trade Name Freq PRN Reason Stop Dose Admin Aspirin 81 mg 07/27/19 09:00 07/28/19 09:32 Aspirin Chewable PER TUBE 81 mg DAILY DWIGHT Administration Atenolol 25 mg 07/27/19 09:00 07/28/19 09:30 Tenormin PER TUBE 25 mg DAILY DWIGHT Administration Atorvastatin Calcium 10 mg 07/26/19 21:00 07/27/19 22:03 Lipitor PER TUBE 10 mg HS DWIGHT Administration Carbidopa/Levodopa 1.5 tab 07/26/19 21:00 07/28/19 09:29 Sinemet Cr 50/200 FS 1.5 tab TID DWIGHT Administration Dexamethasone 2 mg 07/27/19 09:00 07/28/19 09:31 Decadron PER TUBE 2 mg DAILY DWIGHT Administration Sodium Chloride 1,000 mls @ 75 mls/hr 07/26/19 19:00 07/28/19 11:42 Normal Saline 0.9% IV 1,000 mls .[id number] DWIGHT Administration Levetiracetam 500 mg 07/26/19 21:00 07/28/19 09:29 Keppra Oral Solution PER TUBE 500 mg BID DWIGHT Administration Miscellaneous Medication 0 ml 07/27/19 14:00 07/28/19 09:33 Biotene Moisturizing Mouth PO 1 spr [id number] DWIGHT Administration Pantoprazole Sodium 40 mg 07/27/19 15:00 07/28/19 03:35 Protonix IVP 40 mg Q12H DWIGHT Administration - Exam General Appearance: ill appearing ENT: normocephalic atraumatic, no oropharyngeal lesions Neck: supple, symmetric, no JVD, no thyromegaly Heart: no gallops, no rubs, normal peripheral pulses, irregular Respiratory: CTAB, no rales, no ronchi Gastrointestinal: soft, non-tender, non-distended, normal bowel sounds Gastrointestinal - other findings: PEG in place Extremities: no cyanosis, no clubbing Skin: normal turgor Neurological - other findings: R hemiplegia, aphasic Musculoskeletal: generalized weakness Psychiatric: somnolent, lethargic Hosp A/P (1) Hematochezia Code(s): K92.1 - MELENA Status: Acute Plan: Resolving, avoid anticoagulation (2) Chronic anticoagulation Code(s): Z79.01 - LONG-TERM (CURRENT) USE OF ANTICOAGULANTS Status: Chronic Plan: d/c Xarelto due to high risk of recurrent bleeding (3) 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 Code(s): I63.412 - CEREB INFRC DUE TO EMBOLISM OF LEFT MIDDLE CEREBRAL ARTERY Status: Acute Plan: Supportive mgmt, ASA (4) Aphasia Code(s): R47.01 - APHASIA Status: Chronic - Plan plan discussed w/ family, social service agency director, DVT proph w/SCDs Continue supportive mgmt D/C Xarelto Continue IVF's TF's resuming Palliative/Hospice consult Likely will transition home with Hospice when coordinated AM lab: H/H
[2019-07-28] MEDS ORDERED: Pancrelipase DR 12000 1 CAP FS PRN (17:11)
[2019-07-28] MEDS ORDERED: Sodium Bicarbonate Tab 325 MG TAB PER TUBE PRN (17:11)
[2019-07-28] MEDS: Atorvastatin Calcium 10 MG TAB PER TUBE SCH (22:01)
[2019-07-29] MEDS: Sodium Chloride 0.9% 1,000 ML IV SCH ×2 (00:20→13:12)
[2019-07-29] MEDS: Pantoprazole 40 MG VIAL IVP SCH ×2 (05:58→15:30)
[2019-07-29] MEDS: levETIRAcetam 500 mg/5 ml Oral Solution PER TUBE SCH ×2 (09:54→21:03)
[2019-07-29] MEDS: Carbidopa/Levodopa CR 50-200 mg Tablet FS SCH ×3 (09:55→21:03)
[2019-07-29] MEDS: Aspirin Chewable 81 MG TAB PER TUBE SCH (09:56)
[2019-07-29] MEDS: Atenolol 25 MG TAB PER TUBE SCH (09:56)
[2019-07-29] MEDS: Dexamethasone 4 MG TAB PER TUBE SCH (09:56)
[2019-07-29] MEDS: BIOTENE MOUTH SPRAY 44.3 ML PO SCH ×5 (09:57→21:04)
--- NOTE | 2019-07-29 12:44 | PDOC.HOSPP ---
- Subjective Encounter Date: 07/29/19 Encounter Time: 12:15 Subjective: f/u for CVA, hematochezia and overall FTT. Remains lethargic and aphasic at baseline with family coordinating for hospice care at home. - Objective Vital Signs & Weight: Vital Signs (12 hours) Temp Pulse Resp BP BP Pulse Ox 07/29/19 09:56 76 117/76 07/29/19 08:00 97.7 F 76 16 117/76 96 Weight Admit Weight 127 lb Weight 127 lb I&O: 07/28/19 07/29/19 07/30/19 06:59 06:59 06:59 Intake Total 1035 30 Output Total 400 75 Balance 635 -75 30 Result Diagrams: 07/28/19 05:30 07/27/19 05:53 Additional Labs: Accuchecks 07/29/19 07/28/19 07/28/19 11:19 22:02 16:27 POC Glucose 95 74 89 Hospitalist ROS - Medication Medications: Active Medications Generic Name Dose Route Start Last Admin Trade Name Andrewsq PRN Reason Stop Dose Admin Aspirin 81 mg 07/27/19 09:00 07/29/19 09:56 Aspirin Chewable PER TUBE 81 mg DAILY DWIGHT Administration Atenolol 25 mg 07/27/19 09:00 07/29/19 09:56 Tenormin PER TUBE 25 mg DAILY DWIGHT Administration Atorvastatin Calcium 10 mg 07/26/19 21:00 07/28/19 22:01 Lipitor PER TUBE 10 mg HS DWIGHT Administration Carbidopa/Levodopa 1.5 tab 07/26/19 21:00 07/29/19 09:55 Sinemet Cr 50/200 FS 1.5 tab TID DWIGHT Administration Dexamethasone 2 mg 07/27/19 09:00 07/29/19 09:56 Decadron PER TUBE 2 mg DAILY DWIGHT Administration Sodium Chloride 1,000 mls @ 75 mls/hr 07/26/19 19:00 07/29/19 00:20 Normal Saline 0.9% IV 1,000 mls .[id number] DWIGHT Administration Levetiracetam 500 mg 07/26/19 21:00 07/29/19 09:54 Keppra Oral Solution PER TUBE 500 mg BID DWIGHT Administration Miscellaneous Medication 0 ml 07/27/19 14:00 07/29/19 09:57 Biotene Moisturizing Mouth PO 1 spr [id number] DWIGHT Administration Pantoprazole Sodium 40 mg 07/27/19 15:00 07/29/19 05:58 Protonix IVP 40 mg Q12H DWIGHT Administration - Exam General - other findings: lethargic, aphasic, minimally responsive ENT: normocephalic atraumatic, no oropharyngeal lesions, dry oral mucosa Neck: supple, symmetric, no JVD, no thyromegaly Heart: no gallops, no rubs, normal peripheral pulses, irregular, murmur present Respiratory: CTAB, no wheezes, no rales, no ronchi Gastrointestinal: soft, non-tender, non-distended, normal bowel sounds Gastrointestinal - other findings: PEG in place Extremities: no cyanosis, no clubbing, no edema Skin: normal turgor Musculoskeletal: generalized weakness Psychiatric: somnolent, lethargic Hosp A/P (1) Hematochezia Code(s): K92.1 - MELENA Status: Acute Plan: Resolving, d/c anticoagulants (2) Chronic anticoagulation Code(s): Z79.01 - SERICULTURIST (CURRENT) USE OF ANTICOAGULANTS Status: Chronic Plan: d/c Xarelto (3) 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
[2019-07-29] MEDS: Atorvastatin Calcium 10 MG TAB PER TUBE SCH (21:04)
[2019-07-30] MEDS: Pantoprazole 40 MG VIAL IVP SCH ×2 (03:00→14:35)
[2019-07-30] MEDS: Sodium Chloride 0.9% 1,000 ML IV SCH ×2 (03:00→07:59)
[2019-07-30] MEDS: BIOTENE MOUTH SPRAY 44.3 ML PO SCH ×3 (06:33→14:02)
[2019-07-30] MEDS: Dexamethasone 4 MG TAB PER TUBE SCH (08:19)
[2019-07-30] MEDS: Aspirin Chewable 81 MG TAB PER TUBE SCH (08:19)
[2019-07-30] MEDS: Atenolol 25 MG TAB PER TUBE SCH (08:19)
[2019-07-30] MEDS: Carbidopa/Levodopa CR 50-200 mg Tablet FS SCH ×2 (08:20→14:35)
--- NOTE | 2019-07-30 10:29 | DIS ---
DATE OF ADMISSION: 07/26/2019 DATE OF DISCHARGE: 07/30/2019 DISCHARGE DIAGNOSES: 1. Hematochezia, intermittent, multifactorial. 2. Chronic anticoagulation with Xarelto, now discontinued. 3. Cerebral vascular accident with aphasia and bed-bound status. 4. Hypertension, stable. 5. Aphasia secondary to cerebrovascular accident. CONSULTATIONS: None. PERTINENT LABORATORY AND X-RAY FINDINGS: Potassium ranged between 3.2 to 4.2. AST 35, ALT 13, alkaline phosphatase 75, and albumin 3.0. CBC showed a white blood cell count ranging between 8.8 to 12.2, hemoglobin ranged between 11.2 to 13.3. HOSPITAL COURSE: The patient was observed on the medical floor after initially presenting with hematochezia in the context of chronic Xarelto and recent constipation. The patient was discontinued on Xarelto and monitored for recurrence. Due to the patient's comorbid status including recent CVA with bed-bound status and aphasia, the family decided not to pursue aggressive intervention and endoscopy procedures. Serial H and H monitoring showed overall stable values with current recommendations to discontinue Xarelto indefinitely. The patient continued to receive tube feeds with Jevity 1.2, tolerating bolus feeds without difficulty. Discussions with the family regarding long-term goals of care proceeded with the decision to pursue hospice care at home. The family has decided on [facility] with hospice care after discharge. I have examined the patient at the time of discharge with followup instructions and coordination of transfer on 07/30/2019. DISCHARGE MEDICATIONS: 1. Atenolol 25 mg per PEG tube daily. 2. Aspirin 81 mg per PEG tube daily. 3. DuoNeb 3 mL nebulized q.2 hours p.r.n. 4. Keppra 500 mg per PEG tube b.i.d. 5. Acetaminophen 650 mg per PEG tube daily p.r.n. FOLLOWUP: The patient will follow up with [facility] after discharge. CONDITION ON DISCHARGE: Guarded. ACTIVITY: Bed-bound status. DIET: Jevity 1.2 with 6 cans per day bolus. CODE STATUS: Do not attempt resuscitation. DISPOSITION: Discharged home with [facility] on 07/30/2019. TIME SPENT: Total time in preparing and coordinating discharge, 32 minutes. Job ID: [id number]
[2019-07-30 11:37] VITALS: BP 107/74; TEMP 98
[2019-07-30] MEDS: levETIRAcetam 500 mg/5 ml Oral Solution PER TUBE SCH (11:49)
--- NOTE | 2019-07-31 11:51 | DIS ---
DATE OF ADMISSION: 07/26/2019 DATE OF DISCHARGE: 07/30/2019 ADDENDUM: DATE OF EXPIRATION: 07/30/2019 HOSPITAL COURSE: The patient was discharged home to begin hospice care on 07/30/2019. When EMS personnel arrived in the afternoon of 07/30/2019, the patient had already . Decedent affairs and family were notified. The patient at 1610 hours. Please see dictated report dated 07/30/2019 for full details. Job ID: [id number]
== END 2019-07-30 16:10 | disposition expired ==
LOC: ERS 11:14 → T4-B 18:40
PROVIDERS: ADMIT Internal Medicine; ATTEND Internal Medicine
DX: K92.1 Melena (principal); E87.1 Hypo-osmolality and hyponatremia; I69.320 Aphasia following cerebral infarction; Z66 Do not resuscitate; Z51.5 Encounter for palliative care; I10 Essential (primary) hypertension; E11.9 Type 2 diabetes mellitus without complications; I25.10 Atherosclerotic heart disease of native coronary artery without angina pectoris; K21.9 Gastro-esophageal reflux disease without esophagitis; M81.0 Age-related osteoporosis without current pathological fracture; G20 Parkinson's disease; I83.90 Asymptomatic varicose veins of unspecified lower extremity; F41.9 Anxiety disorder, unspecified; Z74.01 Bed confinement status; Z79.01 Long term (current) use of anticoagulants; Z79.82 Long term (current) use of aspirin; Z79.899 Other long term (current) drug therapy; Z88.1 Allergy status to other antibiotic agents
CPT/HCPCS: 36415; 36416; 80048; 80053; 85014; 85018; 85025; 85049; 85610; 85730; 86850; 86900; 86901; 96360; 96361; 96374; 96376; C9113; G0378; J8540